=== PATIENT | female | born 1945 | race Caucasian/White ===

== ENCOUNTER 2018-09-21 00:05 | Inpatient (IN) ==
[2018-09-21] MEDS ORDERED: DUONEB (A & A) INH ONE (00:59)
[2018-09-21] MEDS ORDERED: NITROGLYCERIN TOP ONE (01:53)
[2018-09-21 01:59] LABS: BASO# 0.03 X1000 (0.0-0.2); BASO% 0.3 % (0.0-0.8); EOS# 0.04 X1000 (0.0-0.7); EOS% 0.4 % (0.0-10.0); HEMATOCRIT 28.8 % (37.0-47.0); HEMOGLOBIN 8.8 g/dL (12.0-16.0); LYMPH# 1.59 X1000 (1.2-3.4); MCH 30.2 PG (27-31); MCHC 30.6 g/dL (33-37); MONO# 1.24 X1000 (0.11-0.59); MONO% 13.3 % (1.7-9.3); MPV 9.9 FL (7.4-10.4); NEUT# 6.45 X1000 (1.4-6.5); PLT 174 X1000 (130-400); RBC 2.91 XMIL (4.2-5.4); RDW 14.4 % (11.5-14.5); WBC 9.35 X1000 (4.8-10.8)
[2018-09-21 02:02] LABS: ALB/GLOB RATIO 1.1; ALBUMIN 3.3 g/dL (3.5-5.0); CREATININE 1.4 mg/dL (0.5-0.9); POTASSIUM 3.3 mmol/L (3.5-5.1); TOTAL BILIRUBIN 0.33 mg/dL (0.20-1.00); TOTAL PROTEIN 6.3 g/dL (6.3-8.3)
[2018-09-21] MEDS ORDERED: LASIX IV ONE (02:59)
[2018-09-21] MEDS ORDERED: KLOR-CON PO ONE (03:56)
[2018-09-21 04:08] LABS: ALLEN TEST YES; BE 11.2 mmoll (-3.0-3.0); BLOOD TYPE ARTERIAL; HCO3-(ACT) 33.7 mmoll (20.0-26.0); MODALITY CANNULA; O2HB 96.1 % (95.0-99.0); PCO2(98.6) 47 mmHg (35-45); PO2(98.6) 91 mmHg (60-100); SAMPLE BLOOD; SAO2 98.8 % (95.0-100.0); THB 9.5 g/dL (11.5-17.4); pH(98.6) 7.49 (7.35-7.45)
--- NOTE | 2018-09-21 05:20 | Diag Imaging Result Doc PS360 ---
EXAM: CHEST-2 VIEWS HISTORY: cough TECHNIQUE: Chest three views COMPARISON: 06/08/2018 FINDINGS: The lungs are well expanded. The heart is enlarged. There is central vascular distention. No pleural effusions. There is a granuloma in the right base. IMPRESSION: Mild cardiomegaly with pulmonary edema. Electronically signed by Pérez Bunch 09/21/2018 5:18 AM
--- NOTE | 2018-09-21 06:53 | HISTORY AND PHYSICAL ---
Patient of [facility] under the care of Dr. Franki Motley. REASON FOR ADMISSION: Two to three day history of shortness of breath. Ms. Kaci Bustillos is a 73-year-old woman with a history of COPD, carotid disease, diastolic heart failure, hypothyroidism, hyperlipidemia, hypertensive heart disease, iron deficiency anemia, prior atrial fibrillation and coronary artery disease. She is also morbidly obese and bedbound. She reports that over the last 3 days, she has noticed that she has been more short of breath even when she makes little movements in her bed. She also complains of orthopnea but no PND. She denies any cough, fever or chills. She reports that the last 1 week, she has had progressive worsening of swelling of her left lower extremity and abdomen. She says that she has had intermittent chest pain of the same duration lasting 2 minutes, emanating from the substernal area into her precordial area. No specific aggravating or alleviating factors. No associated anginal equivalents with this chest pain. REVIEW OF SYSTEMS: Twelve system review was done. No GI or complaints. No polyuria or polydipsia. No focal neurological complaints. Positive findings per HPI. ALLERGIES: Penicillin. HOME MEDICATIONS: Have not been reconciled although she does state she takes Lasix. FAMILY HISTORY: Notable for heart disease, diabetes and stroke. SOCIAL HISTORY: She lives at [facility]. Does not smoke, drink or use illicit drugs. SURGICAL HISTORY: She has right AKA and subsequent I and D, right knee arthroplasty, ORIF of the patella on the right x2, carpal tunnel release, hysterectomy. LAB WORK: EKG showed atrial fibrillation with possible left bundle branch block. No other gross ST- T changes or findings to suggest ischemia. BUN is 18, creatinine 1.4, potassium 3.3. White count 9,000, H and H 8.8 and 28. Platelet count 174,000. Glucose 114. Lactate normal. Troponin 0.031. ProBNP . Chest x-ray film not up for review. PHYSICAL EXAMINATION: GENERAL: Morbidly obese woman who is a little sleepy but easily arousable. Oriented to person, place and time. VITAL SIGNS: Blood pressure 152/60, heart rate 80, respirations 18, temperature is 99.4 degrees. She is 99% on 2 L nasal cannula. HEENT: Head is normocephalic atraumatic. Eyes: PERRL, EOMI. She is anicteric and pale. ENT and oropharyngeal exam is grossly normal. NECK: Supple. No JVD or carotid bruit appreciated. Neck is short and thick. CHEST: A few crepitations surprisingly in the upper lobes with subsequent decreased air entry in the lower lobes. CARDIOVASCULAR: First and second heart sounds are heard. No gallops, murmurs or rubs appreciated. Rhythm is irregular. ABDOMEN: Protuberant, soft and mild epigastric and right upper quadrant tenderness with no peritoneal signs. Bowel sounds could not be appreciated. No mass or megaly could be appreciated. RECTAL: Deferred. EXTREMITIES: The patient has a right AKA stump. There is no overt breakdown. Left lower extremity showing areas of 2+ pitting edema with some degree of xerosis of the left leg. Some lichenification of the skin. Pulses distally have good volume except I could not appreciate very significant pulse on the right radial pulse. NEUROLOGICAL: No gross focal neurological deficits appreciated. SKIN: Aforementioned caked and xerotic skin of the left lower extremity mentioned above. MUSCULAR: Other than AKA no other findings. ASSESSMENT: 1. Acute diastolic heart failure. 2. Hypertensive heart disease. 3. Coronary artery disease. 4. Atrial fibrillation. 5. Morbid obesity. 6. Chronic respiratory failure on home O2. 7. Hypothyroidism. 8. Iron deficiency anemia. 9. Hypothyroidism. PLAN: Patient will be admitted for aggressive diuresis. I will anticipate that when the patient is discharged, her diuretic regimen will need to be adjusted. Check BMP and monitor renal function. Replete potassium and other electrolytes as deemed necessary. Patient's last echocardiogram was very difficult to obtain. Maybe we will get neeraj this time to evaluate the patient's EF. Alternatively, a MUGA scan may be needed in this patient if all else fails. Anemia workup was ordered. The patient does have evidence of iron deficiency. She may benefit from intravenous iron which may improve her overall mortality and morbidity. Other supportive measures like nebulizer treatments will be administered. Serial enzymes will be done in view of her history of coronary artery disease and topical nitroglycerin will be applied to decrease venous return and also help with potential chest pain. Please follow chest film report and another has been ordered for tomorrow. cc: Agatha Baptiste MD [facility]
--- NOTE | 2018-09-21 07:16 | EKG Report ---
Test Performed on : 09/21/2018 03:11:35 AM Test Reason : SOB Blood Pressure : / mmHG Vent. Rate : 062 BPM Atrial Rate : 056 BPM P-R Int : 000 ms QRS Dur : 154 ms QT Int : 396 ms P-R-T Axes : 000 -18 044 degrees QTc Int : 401 ms Atrial fibrillation. Left bundle branch block Abnormal ECG When compared with ECG of 08-JUN-2018 10:19, QT has shortened Unconfirmed Result
[2018-09-21] MEDS: DUONEB (A & A) INH SCH ×4 (09:15→22:00)
[2018-09-21] MEDS: NITROGLYCERIN TOP SCH ×3 (10:06→23:22)
[2018-09-21] MEDS: LASIX 100 MG in NS 90 ML IV SCH (10:10)
[2018-09-21] MEDS: SYNTHROID PO SCH ×2 (12:52→12:53)
[2018-09-21] MEDS: TYLENOL PO PRN ×2 (12:52→19:11)
[2018-09-21] MEDS: LOPRESSOR PO SCH ×2 (12:53→21:13)
[2018-09-21] MEDS: PLAVIX PO SCH (12:53)
[2018-09-21] MEDS: NORVASC PO SCH (12:53)
[2018-09-21] MEDS: RANEXA PO SCH ×2 (12:55→21:13)
[2018-09-21] MEDS: LAC-HYDRIN 12% LOTION TOP SCH ×2 (13:54→21:24)
--- NOTE | 2018-09-21 13:58 | CONSULTATION ---
DATE OF CONSULTATION: 09/21/2018 IMPRESSION: 1. Acute on chronic congestive heart failure. Probably multifactorial. 2. Recurrent chest discomfort. Probably stable angina. 3. Known atherosclerotic coronary disease with previous coronary angioplasty/ stent, for management of multivessel coronary atherosclerosis. Patient not felt to be a surgical candidate for bypass. 4. Atrial fibrillation 5. Morbid obesity. 6. Status post right nkqlf-pjq-zlsk amputation. 7. Hypertension. 8. Hyperlipidemia. 9. Chronic renal insufficiency. 10. Possible obstructive sleep apnea. RECOMMENDATIONS: 1. Diurese as you are doing. 2. Echocardiography. 3. Maximize medical therapy for atherosclerotic coronary disease/angina. 4. Conservative cardiovascular management overall. HISTORY: This 73-year-old white female with past history of atherosclerotic coronary disease, previous multivessel coronary angioplasty/stenting for management of multivessel coronary disease in setting where patient not felt to be a surgical candidate, previous right qmcxo-ove-khsx amputation, hypertension, hyperlipidemia, morbid obesity, and congestive heart failure, was admitted on transfer from [facility] for further management of dyspnea symptoms with progressive edema. She has had some chest discomfort as well. She relates chronic recurrent chest discomfort perhaps twice a day. Discomfort is described as being central in the chest and dull in character. Discomfort is nonexertional and may last several minutes before resolving spontaneously. She does note some occasional relief with nitroglycerin sublingually. She has had progressive swelling and more recently a tendency for increased shortness of breath. The pattern of chest discomfort has not really changed that much. PAST MEDICAL HISTORY: 1. Atherosclerotic coronary disease with multivessel coronary angioplasty/ stenting for management of multivessel coronary disease in patient not felt to amenable to surgical revascularization because of morbid obesity and immobility. 2. Morbid obesity. 3. Atrial fibrillation 4. Hypertension. 5. Hyperlipidemia. 6. Chronic renal insufficiency. 7. Gastroesophageal reflux disease. 8. Hypothyroidism. 9. Tendency for congestive heart failure. PAST SURGICAL HISTORY: Includes previous angioplasty/stenting of left main coronary, left anterior descending coronary, and left circumflex coronary with drug-eluting stents in 2014 performed at [place]. She is status post hysterectomy, unspecified stomach surgery, carpal tunnel release, right fteya-ini-kfkx amputation, and cataract extraction. ALLERGIES: She is allergic or intolerant to penicillin. MEDICATIONS PRIOR TO ADMISSION: As listed. SOCIAL HISTORY: She is disabled and resides in [facility]. She is bedridden. She does not smoke or use alcohol. FAMILY HISTORY: Positive for coronary disease. REVIEW OF SYSTEMS: Pulmonary: Noteworthy for increased dyspnea. There has been very little cough. Gastrointestinal: Noncontributory. Constitutional: Noncontributory. Remainder of review of systems negative/noncontributory, 14 total systems reviewed. PHYSICAL EXAMINATION: General: This is a morbidly obese, older white female in no distress. Vital signs: Blood pressure 140/102, heart rate 112, weight 342 pounds. HEENT : Extraocular movements intact. Mucous membranes moist. Neck: Supple. Jugular venous distention is difficult to appreciate. Chest: Clear to auscultation bilaterally. Cardiac: A regular rate and rhythm without appreciable murmur or gallop. Abdomen: Soft. Bowel sounds audible. Extremities: Demonstrate 2+ pitting edema with chronic venous stasis changes. Neurologic: Alert and fully oriented. Speech is fluent. She moves all 4 extremities equally well. DIAGNOSTIC DATA: Twelve-lead EKG demonstrates atrial fibrillation and left bundle branch block. LABORATORY DATA: Includes a sodium 142, potassium 3.3, chloride 99, carbon dioxide 31, BUN 18, creatinine 1.4, glucose 110. White blood cell count 9.35, hematocrit 38.8, hemoglobin 8.8, platelet count 174,000. Initial troponin T 0.031, followup troponin to 0.042. Pro B-natriuretic peptide level 3210. cc: Romain Canas MD [facility]
[2018-09-21] MEDS: ZOFRAN IV PRN (14:18)
--- NOTE | 2018-09-21 15:25 | PROGRESS NOTE ---
DATE: 09/21/2018 INTERVAL HISTORY: Ms. Bustillos was admitted overnight with chief complaints of shortness of breath and orthopnea of three days duration with seven days duration of bilateral lower extremity swelling. She does have past medical history of heart failure with preserved ejection fraction and chronic obstructive pulmonary disease with chronic hypoxic respiratory failure. Overnight she was started on intravenous Lasix drip for heart failure with preserved ejection fraction exacerbation, and Cardiology was also consulted. Currently, patient denies any chest pain, although he was complaining of intermittent central chest pain on presentation. She is feeling a little short of breath because she thinks the bed is not appropriate for her. She also complains of intermittent palpitation, which has been ongoing since last 7 days with increasing frequency. VITAL SIGNS: Temperature 99.3 degrees, pulse 80, respiratory rate of 16, blood pressure 125/79, saturating 98% on 3 L nasal cannula. PHYSICAL EXAMINATION: General: The patient appears morbidly obese, not in any acute distress. Examination is restricted considering the patient's body habitus, inability to get up from the bed, as well as inability to turn and thick chest wall. Respiratory: Her air entry appears adequate bilateral supramammary region. I could not appreciate good breath sounds bilateral inframammary region. They do appear to be without any wheezes or crackles. Cardiovascular: S1, S2 normal. Irregularly irregular. No murmur, rub, or gallop. Abdomen: Obese , soft, nontender. I could not appreciate any bowel sounds. It was difficult to appreciate jugular venous distention. However, there was no marked elevation that I could see. Extremities: Left lower extremity has chronic appearing lymphedema affecting the entire left lower extremity. On the right side, she has below-knee amputation. She also has a urine catheter. LABS: Suggestive of normocytic anemia which appears chronic, hypokalemia, chronic kidney disease stage III. Her digoxin level was not elevated. ASSESSMENT AND PLAN: 1. Acute exacerbation of heart failure with preserved ejection fraction. According to echocardiogram in 2018, it was of poor quality and extremely limited. I will appreciate Cardiology recommendation if she would need a MUGA scan. Previously she does have history of coronary artery disease status post stent. However, she was deemed a poor candidate for coronary artery bypass graft. Continue intravenous Lasix drip. 2. Atrial fibrillation with rapid ventricular rate. I will continue patient on metoprolol and Xarelto, which are her home medications. I will appreciate Cardiology recommendation if she would in future need diltiazem and digoxin which are listed to be in her medication list. However, the proper medication reconciliation is pending. 3. Coronary artery disease. Continue home clopidogrel, continue atorvastatin for hyperlipidemia. 4. Chronic kidney disease stage III, aware. 5. Chronic hypoxic respiratory failure on home oxygen, aware. Currently oxygen requirement is baseline. 6. Hypothyroidism. Follow up with thyroid stimulating hormone since the patient has been complaining of intermittent palpitation recently to make sure she is not hyper thyrotoxic. 7. Acute encephalopathy: Patient currently appears alert and oriented x 3. However, I was informed by her son on the phone that she has been acting confused since last at least 2 days. He told me that this often happens in the setting of UTI for her. Currently, she denies any urinary symptoms though. I will get urine studies and depending on her clinical course, I would consider adding antibiotics. She has been listed to be on several psychotropic medicines which could also contribute to drowsiness, confusion. DISPOSITION: The patient remains inside [facility]. Plan of care was discussed with her. All of her questions have been answered satisfactorily. I called patient's son who is a surrogate decision maker. I extensively discussed with him about patient's clinical condition and answered all of his questions. cc: Elijah Machuca MD [facility]
[2018-09-21 16:34] LABS: URINE SOURCE CATH
[2018-09-21 16:42] LABS: BILIRUBIN URINE NEGATIVE (NEGATIVE); BLOOD URINE MODERATE (NEGATIVE); COLOR YELLOW; GLUCOSE URINE NEGATIVE (NEGATIVE); KETONE URINE NEGATIVE (NEGATIVE); LEUKOCYTES URINE LARGE (NEGATIVE); NITRITE URINE POSITIVE (NEGATIVE); PH URINE 5.5; PROTEIN URINE 30 mg/dL (NEGATIVE); SP GRAVITY URINE 1.001; TURBIDITY URINE HAZY (CLEAR); UROBILINOGEN URINE NORMAL (NORMAL)
[2018-09-21 16:52] LABS: UR EPITHELIAL CELLS <10 /HPF (<10); URINE BACTERIA 4+ /HPF; URINE WBC TNTC /HPF (<10)
[2018-09-21] MEDS ORDERED: XARELTO PO SCH (17:00)
[2018-09-21 17:11] LABS: URINE CASTS NONE SEEN; URINE CRYSTALS NONE SEEN; URINE SMALL ROUND CELLS NONE SEEN; URINE YEAST NONE SEEN
[2018-09-21] MEDS: LIPITOR PO SCH (21:13)
[2018-09-21] MEDS: MIRALAX PO SCH (21:13)
[2018-09-21] MEDS ORDERED: DULCOLAX PR PRN (21:25)
[2018-09-21] MEDS ORDERED: PERCOCET-5 PO ONE (23:05)
[2018-09-22] MEDS: TYLENOL PO PRN (02:45)
[2018-09-22] MEDS: LASIX 100 MG in NS 90 ML IV SCH (03:47)
[2018-09-22] MEDS: DUONEB (A & A) INH SCH ×4 (03:50→21:41)
[2018-09-22 05:53] LABS: RETIC% 1.94 % (0.8-2.1); RETIC-HE 25.7 PG (28.2-36.6)
[2018-09-22 05:55] LABS: BASO# 0.03 X1000 (0.0-0.2); BASO% 0.3 % (0.0-0.8); EOS# 0.06 X1000 (0.0-0.7); EOS% 0.5 % (0.0-10.0); HEMATOCRIT 29.6 % (37.0-47.0); IMM GRAN# 0.03 X1000 (0.0-0.04); IMM GRAN% 0.3 % (0.0-0.5); LYMPH# 1.42 X1000 (1.2-3.4); MCH 30.3 PG (27-31); MCHC 30.4 g/dL (33-37); MCV 99.7 FL (81-99); MONO# 1.42 X1000 (0.11-0.59); MPV 10.2 FL (7.4-10.4); NEUT# 8.92 X1000 (1.4-6.5); NEUT% 74.9 % (42.2-75.2); PLT 183 X1000 (130-400); RBC 2.97 XMIL (4.2-5.4); RDW 14.4 % (11.5-14.5); WBC 11.88 X1000 (4.8-10.8)
[2018-09-22 06:05] LABS: CREATININE 1.5 mg/dL (0.5-0.9); MAGNESIUM 1.7 mg/dL (1.5-2.7); POTASSIUM 3.2 mmol/L (3.5-5.1)
[2018-09-22 06:28] LABS: FERRITIN 217 ng/mL (13-150)
--- NOTE | 2018-09-22 06:32 | ECHO REPORT ---
ORDER DATE: 09/21/2018 INTERPRETING PHYSICIAN: Dr. Mark CLINICAL INDICATIONS: 73-year-old female with diastolic heart failure, atrial fibrillation, morbidly obese, weighs 342 pounds. M-MODE MEASUREMENTS: Left ventricle end diastole: 4.3 cm. Left ventricle end systole: 3.2 cm. Posterior wall: 1.2 cm. Interventricular septum: 1.2 cm. Left atrium: 4.3 cm. Aortic root: 2.1 cm. SUMMARY OF 2-DIMENSIONAL IMAGING: This study is very limited. The left ventricular function may be normal; however, I cannot tell for sure if there is any wall motion abnormality. The aortic valve is probably grossly normal. The mitral valve also shows no significant evidence of a stenosis; however, there is calcification of the annulus. Color flow mapping is very hard to evaluate. There is no pericardial effusion. The right ventricle appears to be grossly within normal range. The left atrium may be mildly enlarged. Pulmonic valve is also grossly unremarkable. SUMMARY: This study is very limited. Please think of alternative imaging modalities if there is a great concern about the presence of cardiac pathology. cc: MD Agatha Champion MD [facility]
[2018-09-22] MEDS: PROTONIX PO SCH (07:00)
[2018-09-22] MEDS: SYNTHROID PO SCH ×2 (07:00)
[2018-09-22] MEDS ORDERED: KLOR-CON PO ONE (07:37)
[2018-09-22] MEDS ORDERED: LEVAQUIN 500 MG/D5W 500 MG/100 ML IVPB IV SCH (07:45)
--- NOTE | 2018-09-22 07:54 | Diag Imaging Result Doc PS360 ---
EXAM: CHEST-PORTABLE 09/22/2018 HISTORY: HF TECHNIQUE: AP portable at 0607 COMMENT: There is cardiomegaly and increased pulmonary vascularity. There is increased interstitial markings. This appears slightly worse than on 09/21/2018. IMPRESSION: Worsened pulmonary edema. Electronically signed by Shayne Wilcox 09/22/2018 7:52 AM
[2018-09-22] MEDS: RANEXA PO SCH ×2 (09:37→21:23)
[2018-09-22] MEDS: WELLBUTRIN SR PO SCH ×2 (09:37→21:23)
[2018-09-22] MEDS: MIRALAX PO SCH ×2 (09:37→21:15)
[2018-09-22] MEDS: ALDACTONE PO SCH (09:37)
[2018-09-22] MEDS: LAC-HYDRIN 12% LOTION TOP SCH ×2 (09:38→21:14)
[2018-09-22] MEDS: PLAVIX PO SCH (09:38)
[2018-09-22] MEDS: NORVASC PO SCH (09:38)
[2018-09-22] MEDS: LOPRESSOR PO SCH (09:38)
[2018-09-22] MEDS ORDERED: APRESOLINE IV PRN (10:39)
[2018-09-22] MEDS ORDERED: CARDIZEM CD PO SCH ×2 (10:45→11:45)
[2018-09-22] MEDS: LASIX IV SCH ×2 (10:52→23:00)
--- NOTE | 2018-09-22 11:47 | PROGRESS NOTE ---
DATE: 09/22/2018 SUBJECTIVE: The patient is still complaining of shortness of breath. I will stop the furosemide drip, and I will put her on twice a day Lasix 80 mg IV. Blood pressure has been elevated, and Cardiology Department is following this patient closely, so I will add hydralazine p.r.n. to her medications. I noted that this patient has been on isosorbide mononitrate ER and diltiazem at home and also digoxin. We will ask Cardiology Department to see if we can continue with this treatment. PHYSICAL EXAMINATION: Vital Signs: Temperature 99.8 degrees, pulse 90, respiratory rate 20, blood pressure 196/81, oxygen saturation 93 on 3 L of nasal cannula. HEENT: Head normocephalic. No trauma. PERRLA. Neck: Supple. I cannot see JVD because of her neck size. Central trachea. Chest: Decreased breath sounds globally with some crackles at the bases. Abdomen: Soft, nontender, nondistended, obese. Positive bowel sounds. Extremities: Left lower extremity edema. Right kszok-cjy-ncmt amputation. Cardiovascular: Irregularly irregular rate and rhythm. Neurological: The patient is alert and oriented x3. No focal deficits. LABORATORY DATA: WBC 11.8, hemoglobin 9, hematocrit 29.6, platelets 193. Sodium 140, potassium 3.2, chloride 95, bicarbonate 33, BUN 18, creatinine 1.5, glucose 131, calcium 9. IMAGING: Chest x-ray showed worsened pulmonary edema. ASSESSMENT AND PLAN: 1. Acute on chronic congestive heart failure exacerbation, likely diastolic. Left ventricular systolic function seems to be adequate. I have stopped the intravenous drip of Lasix, and I will put this patient on intravenous push of Lasix 80 mg twice a day. I will wait for more Cardiology recommendations. 2. Atrial fibrillation with rapid ventricular response. She has been placed on metoprolol and Xarelto. It looks like she has been on diltiazem, digoxin, and Imdur as well. I will wait for more recommendations. 3. History of coronary artery disease. Continue with clopidogrel. Continue with atorvastatin for hyperlipidemia. 4. Chronic kidney disease stage 3, aware. 5. Chronic hypoxic respiratory failure, on home oxygen, aware, currently oxygen requirement is baseline. 6. Hypothyroidism. Continue with the same management. 7. Acute encephalopathy. She seems to be better. She is oriented x3. cc: José Miguel Adorno MD
[2018-09-22] MEDS: IMDUR PO SCH (12:05)
--- NOTE | 2018-09-22 17:31 | CARDIOLOGY PROGRESS NOTE ---
DATE: 09/22/2018 SUBJECTIVE: The patient complains of headache and posterior neck discomfort. She denies shortness of breath or chest pain. OBJECTIVE: Blood pressure 159/73, heart rate 90, oxygen saturation 97% on nasal cannula oxygen. Jugular venous distention cannot be appreciated. Chest is clear to auscultation anteriorly. Cardiac exam reveals a regular rate and rhythm without appreciable murmur or gallop. Extremities demonstrate 2+ to 3+ edema with stasis changes in the distal left lower extremity. She is status post right klvmh-mtd-kidu amputation. LABORATORY DATA: Includes white blood cell count 11.88, hematocrit 29.6, hemoglobin 9.0, platelet count 183,000. Sodium 140, potassium 3.2, chloride 95, carbon dioxide 33, BUN 18, creatinine 1.5, glucose 131. IMPRESSION: 1. Zjwpq-xb-guliouh congestive heart failure, probably multifactorial. 2. Recurrent chest discomfort. Stable angina. 3. Atherosclerotic coronary disease, with previous coronary angioplasty/stent for management of multivessel coronary atherosclerosis. Patient not felt to be a surgical candidate for bypass. 4. Atrial fibrillation. 5. Morbid obesity. 6. Status post right snswo-ucz-gfrw amputation. 7. Hypertension. 8. Hyperlipidemia. 9. Chronic kidney disease. 10. Suspect obstructive sleep apnea. RECOMMENDATIONS: 1. Continue diuresis with IV Lasix q.12. 2. Switch from metoprolol to carvedilol. 3. Diltiazem discontinued. Continue amlodipine. 4. Conservative cardiovascular management overall. 5. If BP elevates,would progressively increase carvedilol. cc: Romain Canas MD
[2018-09-22] MEDS: MORPHINE IV PRN ×3 (17:33→23:37)
[2018-09-22] MEDS: ELIQUIS PO SCH (17:34)
[2018-09-22] MEDS: LIPITOR PO SCH (21:23)
[2018-09-22] MEDS: COREG PO SCH (21:23)
[2018-09-23] MEDS: MORPHINE IV PRN ×4 (02:36→23:32)
[2018-09-23] MEDS: DUONEB (A & A) INH SCH ×4 (03:43→21:50)
[2018-09-23] MEDS: PROTONIX PO SCH ×2 (05:02→06:02)
[2018-09-23] MEDS: SYNTHROID PO SCH ×4 (05:03→06:02)
[2018-09-23] MEDS ORDERED: LEVAQUIN 500 MG/D5W 500 MG/100 ML IVPB IV SCH (06:00)
[2018-09-23 08:58] LABS: CREATININE 1.4 mg/dL (0.5-0.9)
[2018-09-23] MEDS: LACTULOSE PO SCH ×2 (09:08→09:22)
[2018-09-23] MEDS: WELLBUTRIN SR PO SCH ×2 (09:08→21:26)
[2018-09-23] MEDS: NORVASC PO SCH (09:08)
[2018-09-23] MEDS: IMDUR PO SCH (09:08)
[2018-09-23] MEDS: RANEXA PO SCH ×2 (09:08→21:27)
[2018-09-23] MEDS: COREG PO SCH ×2 (09:08→21:26)
[2018-09-23] MEDS: PLAVIX PO SCH (09:08)
[2018-09-23] MEDS: ALDACTONE PO SCH (09:08)
[2018-09-23] MEDS: ELIQUIS PO SCH ×2 (09:08→21:26)
[2018-09-23] MEDS: MIRALAX PO SCH ×2 (09:09→21:27)
[2018-09-23] MEDS: LEVAQUIN 500 MG/D5W 500 MG/100 ML IVPB IV SCH (09:09)
[2018-09-23] MEDS: LASIX IV SCH ×2 (09:11→21:27)
[2018-09-23] MEDS: LAC-HYDRIN 12% LOTION TOP SCH ×3 (09:12→22:13)
--- NOTE | 2018-09-23 11:14 | PROGRESS NOTE ---
DATE: 09/23/2018 SUBJECTIVE: This patient is feeling better. Yesterday she was complaining of a lot of shortness of breath, but today is much better. I will continue with the same management. Cardiology Department on board. No acute events overnight. OBJECTIVE: Vital Signs: Temperature 98.5 degrees, pulse 70, respiratory rate 15, blood pressure 138/60, oxygen saturation 97% on 3 L of nasal cannula. HEENT: Head normocephalic. No trauma. PERRLA. Neck: Supple. I cannot see JVD because of her neck size. Central trachea. Chest: Decreased breath sounds globally with some rales at the bases, some crepitus. Abdomen: Soft, nontender, nondistended. Obese. Positive bowel sounds. Extremities: Left lower extremity edema. Right above the knee amputation. Cardiovascular: Irregularly, irregular rate and rhythm. Neurological examination: The patient is alert and oriented x3. No focal deficits. LABORATORY: Pending BMP today. ASSESSMENT AND PLAN: 1. Acute on chronic diastolic congestive heart failure. Left ventricular systolic function seems to be adequate. I have stopped yesterday the intravenous drip of Lasix, and I put this patient on intravenous Lasix twice a day 80 mg. It looks like it is working better. Pending basic metabolic panel to check the kidney function. 2. Atrial fibrillation with rapid ventricular response, rate controlled. Continue with the management suggested by Cardiology Department. It seems to be working fine. 3. History of coronary artery disease. Continue with the same treatment, clopidogrel, atorvastatin for hyperlipidemia. 4. Chronic kidney disease stage III. Aware. Pending basic metabolic panel. 5. Chronic hypoxic respiratory failure on home oxygen, aware. Continue with oxygen supplementation, currently oxygen requirement is baseline. 6. Hypothyroidism. Continue with same management. 7. Acute encephalopathy, resolved. cc: José Miguel Adorno MD
--- NOTE | 2018-09-23 12:55 | ECHO REPORT ---
ORDER DATE: 09/22/2018 INDICATION: Assess left ventricular function. FINDINGS: This is an extremely difficult study. The patient is 5 foot 5 and weighs 342 pounds. Definity echo contrast was used to help better visualize the left ventricular cavity. This study is still extremely difficult. I would recommend an alternative modality to further assess the LV function. Could consider a gated heart scan. This is an extremely difficult off-axis and poor image quality study secondary to the patient's body habitus. cc: MD Romain Valle MD
[2018-09-23] MEDS: TYLENOL PO PRN (17:25)
--- NOTE | 2018-09-23 20:29 | PROGRESS NOTE ---
DATE: 09/23/2018 SUBJECTIVE: The patient continues without chest discomfort or shortness of breath. She reports feeling better. She continues on nasal cannula oxygen. OBJECTIVE: Blood pressure 150/57, heart rate 78, oxygen saturation 95% on nasal cannula oxygen.Neck: Jugular venous distention cannot be appreciated. Chest: Clear to auscultation anteriorly. Cardiac Exam: Reveals an irregular rate and rhythm without appreciable murmur or gallop. Extremities: Demonstrate 2+ to 3+ edema with stasis changes in the distal left lower extremity. LABORATORY DATA: Includes a sodium 140, potassium 3.0, chloride 93, BUN 21, creatinine 1.4, carbon dioxide 33, glucose 98. IMPRESSION: 1. Acute on chronic congestive heart failure probably multifactorial. 2. Atherosclerotic coronary disease. Patient continues with stable angina. 3. Atrial fibrillation. 4. Morbid obesity. 5. Status post right ffaoh-jmd-wguw amputation. 6. Hypertension. 7. Hyperlipidemia. 8. Chronic kidney disease. 9. Suspect obstructive sleep apnea. RECOMMENDATIONS: 1. Continue diuresis with IV Lasix. 2. Increase carvedilol as needed for improved blood pressure control. 3. Conservative cardiovascular management overall. cc: Romain Canas MD
[2018-09-23] MEDS: LIPITOR PO SCH (21:26)
[2018-09-23] MEDS: ZOFRAN IV PRN (23:56)
[2018-09-24] MEDS: DUONEB (A & A) INH SCH ×4 (03:10→21:30)
[2018-09-24 05:26] LABS: BASO# 0.03 X1000 (0.0-0.2); BASO% 0.3 % (0.0-0.8); EOS# 0.19 X1000 (0.0-0.7); HEMATOCRIT 27.9 % (37.0-47.0); HEMOGLOBIN 8.6 g/dL (12.0-16.0); IMM GRAN# 0.04 X1000 (0.0-0.04); IMM GRAN% 0.4 % (0.0-0.5); LYMPH# 1.09 X1000 (1.2-3.4); LYMPH% 11.5 % (20.5-51.1); MCH 30.2 PG (27-31); MCHC 30.8 g/dL (33-37); MCV 97.9 FL (81-99); MONO# 0.94 X1000 (0.11-0.59); MONO% 9.9 % (1.7-9.3); NEUT# 7.17 X1000 (1.4-6.5); NEUT% 75.9 % (42.2-75.2); PLT 194 X1000 (130-400); RBC 2.85 XMIL (4.2-5.4); WBC 9.46 X1000 (4.8-10.8)
[2018-09-24 05:42] LABS: CALCIUM 8.7 mg/dL (8.8-10.2); CREATININE 1.4 mg/dL (0.5-0.9); POTASSIUM 3.1 mmol/L (3.5-5.1)
[2018-09-24] MEDS: PROTONIX PO SCH (06:06)
[2018-09-24] MEDS: SYNTHROID PO SCH ×2 (06:06)
[2018-09-24] MEDS: MORPHINE IV PRN ×3 (06:25→20:10)
--- NOTE | 2018-09-24 07:54 | Diag Imaging Result Doc PS360 ---
EXAM: CHEST-PORTABLE INDICATION: dyspnea TECHNIQUE: One view COMPARISON: 09/22/2018 FINDINGS: Inspiration is suboptimal. Pulmonary venous congestion and interstitial edema is approximately stable given differences in inspiration. No new consolidation is identified. Cardiac silhouette is stable. IMPRESSION: Essentially stable chest. Electronically signed by Vinicius Silva 09/24/2018 7:52 AM
[2018-09-24] MEDS: RANEXA PO SCH ×2 (08:10→20:03)
[2018-09-24] MEDS: PLAVIX PO SCH (08:10)
[2018-09-24] MEDS: ALDACTONE PO SCH (08:10)
[2018-09-24] MEDS: IMDUR PO SCH (08:11)
[2018-09-24] MEDS: NORVASC PO SCH (08:11)
[2018-09-24] MEDS: COREG PO SCH ×2 (08:11→20:03)
[2018-09-24] MEDS: WELLBUTRIN SR PO SCH ×2 (08:11→20:10)
[2018-09-24] MEDS: LEVAQUIN 500 MG/D5W 500 MG/100 ML IVPB IV SCH (08:11)
[2018-09-24] MEDS: LASIX IV SCH ×2 (08:11→20:04)
[2018-09-24] MEDS: ELIQUIS PO SCH ×2 (08:11→20:03)
[2018-09-24] MEDS: MIRALAX PO SCH ×3 (08:14→20:04)
[2018-09-24] MEDS: LAC-HYDRIN 12% LOTION TOP SCH ×2 (08:14→20:06)
[2018-09-24] MEDS: KLOR-CON PO SCH ×2 (08:42→20:04)
[2018-09-24] MEDS: ZOFRAN IV PRN ×3 (08:48→20:05)
[2018-09-24] MEDS ORDERED: LACTULOSE PO SCH (09:00)
[2018-09-24] MEDS ORDERED: DULCOLAX PR ONE (09:49)
--- NOTE | 2018-09-24 11:23 | PROGRESS NOTE ---
DATE: 09/24/2018 SUBJECTIVE: The patient is feeling a little bit better today. She is not complaining at this moment of shortness of breath. We will continue with same management. She has been diuresed. We have a negative balance of 1.8 L in the past 24 hours. We will continue with the same management. OBJECTIVE: Vital signs: Temperature is 98.2, pulse 66, respiratory rate 18, blood pressure 143/64, oxygen saturation 99% on 3 L of nasal cannula. HEENT: Head is normocephalic and atraumatic. PERRLA. Neck: Supple. I cannot see JVD because of her neck size. Central trachea. Chest: Decreased breath sounds globally with some rales at the bases, some crepitans as well. Abdomen is soft, nontender and nondistended. Obese. Positive bowel sounds. Extremities: Left lower extremity edema. Right sixqv-[id number]-snja amputation. Cardiovascular: Irregularly irregular rate and rhythm. Neurologic: The patient is alert and oriented x3. No focal deficits. DIAGNOSTIC DATA: WBC is 9.4, hemoglobin 8.6, hematocrit 27.9, platelets 194. Sodium is 139, potassium 3.1, chloride 92, bicarbonate 34, BUN is 22, creatinine 1.4, glucose 104, calcium 8.7. ASSESSMENT AND PLAN: 1. Acute on chronic diastolic congestive heart failure. Left ventricular systolic function seems to be adequate. I had stopped a couple of days ago the IV drip of Lasix, and I put this patient on Lasix IV twice a day 80 mg. It seems to be working fine. Kidney function has been stable. 2. Atrial fibrillation with rapid ventricular response, rate controlled. Continue with the same management. Cardiology Department onboard. 3. History of coronary artery disease. Continue with same treatment, clopidogrel, and atorvastatin for hyperlipidemia. 4. Chronic kidney disease stage 3, aware. Kidney function has been stable. We will monitor this closely. 5. Chronic hypoxic respiratory failure, on home oxygen. Aware. Continue with oxygen supplementation. Currently oxygen requirement is at baseline. 6. Hypothyroidism. Continue with same management. 7. Acute encephalopathy, resolved. cc: José Miguel Adorno MD
--- NOTE | 2018-09-24 13:27 | CARDIOLOGY PROGRESS NOTE ---
DATE: 09/24/2018 CHIEF COMPLAINT: Shortness of breath, swelling. SUBJECTIVE: Ms. Bustillos feels like she is nauseous. She really does not want to eat much today. She says that her swelling has decreased considerably. Overall she is feeling better. Her heart rate appears to be better controlled. She is in permanent atrial fibrillation. OBJECTIVE: Vital signs: Today, her blood pressure is 143/64, temperature 98.3, pulse 66, respirations 18. The patient is awake, sitting upright. HEENT is unremarkable. Chest sounds clear to auscultation and percussion. Heart sounds are slightly irregular. Abdomen is obese. Extremities show evidence of right above-knee amputation. Left leg is swollen, 2 to 3+ edema. Neurologic: Follows commands. Moves all 4 extremities. DIAGNOSTIC DATA: Blood work from today shows sodium 139, potassium 3.1, BUN is 22, creatinine 1.4. ProBNP has risen to 5882 picograms per mL. IMPRESSION: 1. The patient is with congestive heart failure that probably this is more a case of diastolic dysfunction. 2. Permanent atrial fibrillation. 3. Morbid obesity. 4. Status post right above-knee amputation. 5. Hypertension. 6. Chronic kidney disease. RECOMMENDATIONS: At this time, I would suggest to continue supportive care. The [facility] prognosis of this patient is really very poor. She is amputated, morbidly obese, and is a penitentiary resident. Her body mass index is 57. We will follow her as needed. cc: Papito Mark MD
[2018-09-24] MEDS: LIPITOR PO SCH (20:03)
[2018-09-25] MEDS: DUONEB (A & A) INH SCH ×4 (03:39→23:03)
[2018-09-25] MEDS: MORPHINE IV PRN ×3 (03:41→20:06)
[2018-09-25] MEDS: ZOFRAN IV PRN ×4 (03:41→20:35)
[2018-09-25 05:53] LABS: BASO# 0.03 X1000 (0.0-0.2); BASO% 0.3 % (0.0-0.8); EOS# 0.21 X1000 (0.0-0.7); EOS% 2.2 % (0.0-10.0); HEMOGLOBIN 8.8 g/dL (12.0-16.0); IMM GRAN# 0.05 X1000 (0.0-0.04); IMM GRAN% 0.5 % (0.0-0.5); LYMPH% 15.6 % (20.5-51.1); MCH 29.7 PG (27-31); MCHC 30.3 g/dL (33-37); MONO# 0.99 X1000 (0.11-0.59); MONO% 10.3 % (1.7-9.3); MPV 10.2 FL (7.4-10.4); NEUT# 6.86 X1000 (1.4-6.5); NEUT% 71.1 % (42.2-75.2); PLT 236 X1000 (130-400); RBC 2.96 XMIL (4.2-5.4); RDW 13.9 % (11.5-14.5); WBC 9.64 X1000 (4.8-10.8)
[2018-09-25 06:15] LABS: CALCIUM 9.4 mg/dL (8.8-10.2); CREATININE 1.4 mg/dL (0.5-0.9); POTASSIUM 3.3 mmol/L (3.5-5.1)
[2018-09-25] MEDS: PROTONIX PO SCH (06:29)
[2018-09-25] MEDS: SYNTHROID PO SCH ×2 (06:29)
[2018-09-25] MEDS: ELIQUIS PO SCH ×2 (08:38→20:34)
[2018-09-25] MEDS: NORVASC PO SCH (08:38)
[2018-09-25] MEDS: IMDUR PO SCH (08:38)
[2018-09-25] MEDS: WELLBUTRIN SR PO SCH ×2 (08:38→20:34)
[2018-09-25] MEDS: ALDACTONE PO SCH ×2 (08:38→20:34)
[2018-09-25] MEDS: PLAVIX PO SCH (08:38)
[2018-09-25] MEDS: MIRALAX PO SCH ×3 (08:39→20:38)
[2018-09-25] MEDS: LASIX IV SCH ×2 (08:39→20:34)
[2018-09-25] MEDS: LEVAQUIN 500 MG/D5W 500 MG/100 ML IVPB IV SCH (08:39)
[2018-09-25] MEDS: COREG PO SCH ×2 (08:40→20:34)
[2018-09-25] MEDS: RANEXA PO SCH ×2 (09:27→20:34)
[2018-09-25] MEDS: LAC-HYDRIN 12% LOTION TOP SCH (09:50)
--- NOTE | 2018-09-25 10:56 | CARDIOLOGY PROGRESS NOTE ---
DATE: 09/25/2018 CHIEF COMPLAINT: Shortness of breath, swelling. SUBJECTIVE: Ms. Bustillos is feeling better this morning. She is less stomach upset and less short of breath. She got some physical therapy, coming to do exercises at the bedside. Telemetry shows atrial fibrillation with controlled rate. OBJECTIVE: Vital signs: Blood pressure is 136/66, temperature 97.8, pulse 56, respirations 16. She is awake, alert and obese, in no distress. HEENT unremarkable. Chest sounds clear to auscultation and percussion. Heart sounds irregularly irregular. No gallop or murmur. Abdomen is quite obese. Extremities showed evidence of right above-knee amputation. Neurologic: Follows commands. Moves all 4 extremities. DIAGNOSTIC DATA: Blood work shows sodium is 143, potassium 3.3, BUN is 23, creatinine 1.4. Hemoglobin is 8.8, white cell count is 9640. IMPRESSION: 1. The patient has persistent permanent atrial fibrillation, rate controlled. 2. Congestive heart failure, mostly diastolic. 3. Status post right above-knee amputation. 4. Hypokalemia. This is persistent. 5. Chronic kidney disease. 6. Hypertension. RECOMMENDATIONS: I will increase her spironolactone to 25 mg twice a day and see how she does. She needs to be monitored periodically for potassium elevation. She may be coming closer to the point where she can go back to the [facility]. cc: Papito Mark MD
--- NOTE | 2018-09-25 15:56 | INFECTIOUS DISEASE CONSULT REP ---
DATE: 09/25/2018 CONCLUSION: The patient has a symptomatic E coli urinary tract infection. The patient did mention that it caused pain in both of her costovertebral angle areas. Thus, I think the patient has involvement of her kidneys. RECOMMENDATIONS: I have ordered aztreonam for the patient. She had shock when she took penicillin, however, she has had Keflex in the past and tolerated it well. Therefore, I think probably a cephalosporin antibiotic also could be given to the patient for her urinary tract infection but I am plan to use aztreonam instead. DISCUSSION: The patient initially came in the hospital because of cough and dyspnea. She also had dysuria and bilateral flank pain. Her urine culture grew E coli. The patient's CBC shows a white count of 9640, hemoglobin 8.8, and platelet count 236,000. Creatinine was 1.4. GFR is 37. Chest x-ray shows pulmonary venous congestion. INTERCHANGE AGENT HISTORY: She is a 4, para 3, AB1. She is had a hysterectomy. PREVIOUS HOSPITALIZATIONS AND OPERATIONS: She has had 3 labor and deliveries, a miscarriage, a hysterectomy, a thyroid surgery, carpal tunnel surgery, a right total knee arthroplasty infection which eventually resulted in the patient having a right ljzna-hld-aahn amputation. MEDICAL DISEASES: Positive for morbid obesity, diabetes mellitus, hypertension , cardiac arrhythmia, osteoarthritis, hyperlipidemia, hypothyroidism. INFECTIOUS DISEASE HISTORY: Positive for urinary tract infection and pneumonia. FAMILY HISTORY: Positive for diabetes mellitus, hypertension and cancer. SOCIAL HISTORY: The patient is a . She lives in a prison. ALLERGIES: As mentioned above, she is allergic to penicillin. She had shock but she tolerated Keflex well in the past. MEDICATIONS: Taken at the prison include Eliquis, Lipitor, Dulcolax, bupropion, citalopram, Plavix, Lanoxin, diltiazem, Lasix, gabapentin, Atarax, Isordil, Synthroid, Ativan, methocarbamol, oxycodone, pantoprazole, Mirapex and vitamins and minerals. PHYSICAL EXAMINATION: Vital Signs: Temperature is 97.8 degrees, pulse 66, respirations 16, blood pressure is 128/73. The patient weighs 342 pounds. She is 5 feet 5 inches tall. General: This is a morbidly obese, elderly female. She is in no acute distress today. Head, eyes, ears, nose, and throat: She can hear my spoken words and see near objects. She does not have any white patches on her tongue. Neck: No meningismus. Thorax: Increased AP diameter of the chest. Lungs: The patient had distant breath sounds. I did not hear any wheezes or rales. Cardiovascular: Heart rate is distant. It appeared to be a regular heart rate. Abdomen: Soft and not tender. Bones, joints, muscles: Patient has a right llvop-vyr-[id number] amputation. Neurologic: The patient is awake. She can move her arms and left leg but is very weak. The patient's memory as regarding her medical history was slightly decreased. Integument: Patient has brownish discoloration of the distal left leg. Thank you for the consult. cc: Wu Meyers MD MTDD
[2018-09-25] MEDS: LIPITOR PO SCH (20:34)
--- NOTE | 2018-09-25 23:00 | PROGRESS NOTE ---
DATE: 09/25/2018 SUBJECTIVE: Patient resting comfortable in bed. OBJECTIVE: Vital signs: Temperature 97.8 degrees, pulse 66, respiratory 16, blood pressure 122/73 . HEENT: She is atraumatic, normocephalic. Cardiovascular: S1, S2. Respiratory: Good entry bilaterally. ABDOMEN: Obese, nontender, no masses felt.Extremities: Trace edema in left lower extremity, patient does have right above-knee amputation. ASSESSMENT AND PLAN: Management of congestive heart failure [*] coronary artery disease will be per recommendation of the Cardiology team. We will continue to follow up on patient's renal function with regards to chronic kidney disease. Continue levothyroxine for hypothyroidism and also manage UTI with antibiotics. cc: Arjun Sage MD
[2018-09-26] MEDS: DUONEB (A & A) INH SCH ×4 (03:14→23:34)
[2018-09-26] MEDS: LAC-HYDRIN 12% LOTION TOP SCH ×3 (04:24→23:04)
[2018-09-26] MEDS: ZOFRAN IV PRN ×2 (04:32→23:03)
[2018-09-26] MEDS: MORPHINE IV PRN ×3 (04:32→23:03)
[2018-09-26] MEDS: SYNTHROID PO SCH ×2 (06:01→06:02)
[2018-09-26] MEDS: PROTONIX PO SCH (06:01)
[2018-09-26] MEDS: ALDACTONE PO SCH ×4 (09:35→20:50)
[2018-09-26] MEDS: ELIQUIS PO SCH ×2 (10:01→20:50)
[2018-09-26] MEDS: WELLBUTRIN SR PO SCH ×2 (10:01→20:50)
[2018-09-26] MEDS: COREG PO SCH ×2 (10:01→20:50)
[2018-09-26] MEDS: PLAVIX PO SCH (10:01)
[2018-09-26] MEDS: RANEXA PO SCH ×2 (10:01→20:51)
[2018-09-26] MEDS: NORVASC PO SCH (10:02)
[2018-09-26] MEDS: IMDUR PO SCH (10:02)
[2018-09-26] MEDS: MIRALAX PO SCH ×2 (10:02→20:51)
[2018-09-26] MEDS: LASIX IV SCH ×2 (10:54→20:50)
--- NOTE | 2018-09-26 15:30 | PROVIDER DOCUMENTATION ---
This chart was entered by Silvia Yan Scribe, acting as scribe for El Martino MD. HPI-Fever <Tom Anders - Last Filed: 09/21/18 03:29> - General Source: patient, EMS <El Martino - Last Filed: 09/26/18 15:30> - General Chief Complaint: Fever Stated Complaint: fever Time Seen by Provider: 09/21/18 00:22 Allergies/Adverse Reactions: Patient Allergies Allergy/AdvReac Type Severity Reaction Status Date / Time Penicillins Allergy Mild HIVES Verified 06/08/18 08:16 Home Medications: Home Medication List Medication Instructions Recorded Confirmed Last Taken Type ATORVAstatin [Lipitor] 40 mg PO QHS 11/26/17 09/21/18 Unknown History Ipratropium/Albuterol Sulfate 3 ml IH BID 11/26/17 09/21/18 04/29/18 08:00 History [Iprat-Albut 0.5-3(2.5) mg/3 ml] Levothyroxine [Synthroid] 200 microgm PO DAILY 11/26/17 09/21/18 09/20/18 History Multivitamin with Folic Acid 1 each PO DAILY 11/26/17 09/21/18 09/20/18 History [Thera Tablet] Pantoprazole Sodium 40 mg PO DAILY 11/26/17 09/21/18 09/20/18 History Potassium Chloride 20 meq PO DAILY 11/26/17 09/21/18 04/29/18 08:00 History Bisacodyl [Correctol] 5 mg PO DAILY 04/29/18 09/21/18 09/20/18 History Zinc 220 mg PO BID 04/29/18 09/21/18 04/29/18 08:00 History Bisacodyl [Dulcolax] 10 mg LA QHS PRN #10 supp 05/02/18 09/21/18 Unknown Rx Diltiazem C.d. [Cardizem Cd] 240 mg PO DAILY #60 cap 05/02/18 09/21/18 09/20/18 Rx Furosemide [Lasix] 80 mg PO DAILY #60 tab 05/02/18 09/21/18 Unknown Rx Lorazepam [Ativan] 1 mg PO QHS #30 tab 05/02/18 09/21/18 Unknown Rx Oxycodone HCl/Acetaminophen 1 tab PO Q4H PRN #20 tab 05/02/18 09/21/18 Unknown Rx [Percocet 10-325 mg Tablet] Apixaban [Eliquis] 5 mg PO BID 09/21/18 09/21/18 Unknown History Ascorbate Calcium [Vitamin C] 500 mg PO BID 09/21/18 09/21/18 Unknown History Bupropion HCl [Bupropion HCl Sr] 150 mg PO BID 09/21/18 09/21/18 Unknown History Cholecalciferol (Vitamin D3) 5,000 unit PO DIRECTED 09/21/18 09/21/18 Unknown History [Vitamin D3] Citalopram Hydrobromide 10 mg PO QHS 09/21/18 09/21/18 Unknown History [Citalopram HBr] Clopidogrel Bisulfate [Plavix] 75 mg PO DAILY 09/21/18 09/21/18 09/20/18 History Digoxin [Lanoxin] 125 microgm PO DIRECTED 09/21/18 09/21/18 Unknown History Gabapentin 200 mg PO BID 09/21/18 09/21/18 Unknown History Hydroxyzine [Atarax] 25 mg PO TID PRN 09/21/18 09/21/18 Unknown History Isosorbide Mononitrate E.r. [Imdur] 60 mg PO DAILY 09/21/18 09/21/18 09/20/18 History Lactulose 10 gm PO EVERY OTHER DAY 09/21/18 09/21/18 Unknown History Levothyroxine [Synthroid] 75 microgm PO DAILY 09/21/18 09/21/18 09/20/18 History Lorazepam [Ativan] 0.5 mg PO DIRECTED 09/21/18 09/21/18 Unknown History Melatonin/Pyridoxine [Melatonin 5 1 each PO QHS 09/21/18 09/21/18 Unknown History mg Tablet] Methocarbamol 750 mg PO TID 09/21/18 09/21/18 Unknown History Potassium Chloride E.r. [Klor-Con] 10 meq PO QHS 09/21/18 09/21/18 Unknown History Pramipexole Di-HCl [Mirapex] 1 mg PO QHS 09/22/18 09/22/18 Unknown History - History of Present Illness-Fever Nature of Presenting Problem: 73 yof presents to ED by EMS from alf care facility. EMS states facility states pt had AMS but is fine upon arrival of EMS and still oriented upon arrival to ED. EMS states pt is warm to touch and pt has 99.4 temp upon arrival. Pt states being extremely sleepy for the past 2-3 days. (Silvia Yan) 73 yof presents to ED by EMS from alf care facility. EMS states facility states pt had AMS but is fine upon arrival of EMS and still oriented upon arrival to ED. EMS states pt is warm to touch and pt has 99.4 temp upon arrival. Pt states being extremely sleepy for the past 2-3 days. (El Martino) Review of Systems - Adult - REVIEW OF SYSTEMS - ADULT Constitutional: reports: see HPI, chills, fever, fatique Eyes: reports: no symptoms reported Ears, Nose, Mouth & Throat: reports: no symptoms reported Cardiovascular: reports: no symptoms reported Respiratory: reports: no symptoms reported Gastrointestinal: reports: no symptoms reported Genitourinary: reports: no symptoms reported Musculoskeletal: reports: no symptoms reported Integumentary: reports: no symptoms reported Neurological: reports: no symptoms reported Psychiatric: reports: no symptoms reported Endocrine: reports: no symptoms reported Hematologic/Lymphatic: reports: no symptoms reported Allergic/Immunologic: reports: no symptoms reported All Other Systems: Reviewed and Negative <El Martino - Last Filed: 09/26/18 15:30> Past History - Adult - PAST MEDICAL HISTORY-ADULT Review of Records: reports: Old Records Reviewed, Nursing Assessment Review, Medications Reviewed Major Childhood Illnesses: reports: denies history Cardiovascular: reports: A-Fib, arrhythmia, CHF, HTN, [place] Respiratory: reports: asthma, COPD Gastrointestinal: reports: GERD Obstetrical/Gynecological: reports: denies history Genitourinary: reports: kidney disease Musculoskeletal: reports: arthritis Neurological: reports: denies history Psychiatric: reports: denies history Endocrine/Immune: reports: Diabetes, thyroid disorder Other Conditions: reports: denies history - PRIOR SURGERIES/PROCEDURES Surgical/Procedure History: reports: recent surgery (right knee replacement), hysterectomy, orthopedic (extremity) (carpal tunnel), joint replacement (right knee), other (thyroidectomy) - IMMUNIZATION STATUS Childhood Immunizations: See Nurse Assessment Flu Vaccine: See Nurse Assessment - FAMILY HISTORY Family History: reviewed, not pertinent <El Martino - Last Filed: 09/26/18 15:30> Physical Exam-General - PHYSICAL EXAM-ADULT Initial Vital Signs Reviewed: Yes - CONSTITUTIONAL General Appearance: alert, no apparent distress, obese. negative: appears well - EYES Eyes: PERRL/EOMI, pink conjunctivae - HEAD, EARS, NOSE, MOUTH & THROAT HENMT: moist mucous membranes, normal ENT inspection - NECK Neck: non-tender, full range of motion - RESPIRATORY Respiratory: chest non-tender, no respiratory distress, no accessory muscle use , crackles, wheezing. negative: lungs clear, normal breath sounds, rales, rhonchi - CARDIOVASCULAR Cardiovascular: regular rate, rhythm, no edema - GASTROINTESTINAL (ABDOMEN) Abdominal Exam: normal bowel sounds, non tender - LYMPHATIC Lymphatic: no adenopathy - MUSCULOSKELETAL Back Exam: normal inspection - SKIN Integumentary: diaphoresis, pallor - NEUROLOGIC Neurologic: handle bar assembler II-XII nml as tested - PSYCHIATRIC Psych/Mental Status: normal mood/affect, normal thought process, oriented x 3 <El Martino - Last Filed: 09/26/18 15:30> Progress - PLAN OF CARE/RESULTS Result Diagrams: 09/21/18 01:19 09/21/18 01:19 - REASSESSMENT Reassessment #1 Time Reassessed: 03:00 (received @ S/O, seen, examined. Heart RRR, lungs with decreased BS. Pt sleeping now) - EKG 1 Time of EKG reading by physician:: 03:20 (was shown to me @ my request) EKG Read and Signed by:: Tom Anders EKG Interpretation (*Must complete 3 of following elements*): Abnormal Rate: 62 Rhythm: a fib [place]: normal QRS: LBB - XRAY 1 XRAY Study: Chest Impression: Abnormal (pul vasc congestion, per me) - CONSULTS/PCP/HOSPITALIST Notification #1 *Consult/PCP/Hospitalist*: [place] Time Discussed: 03:05 Consult Disposition: Admit <Tom Anders - Last Filed: 09/21/18 03:29> - PLAN OF CARE/RESULTS Result Diagrams: 09/25/18 05:17 09/25/18 05:17 <El Martino - Last Filed: 09/26/18 15:30> - PLAN OF CARE/RESULTS Progress/Plan/Lab Results: Orders Category Date Time Status Admit - [facility] Routine AdmDCTranf 09/21/18 07:54 Active Activity - Up with Assistance EVERY SHIFT NURSING Care 09/21/18 07:54 Active Intake and Output-Strict Q 8-HR ASSESS Care 09/21/18 07:54 Active Nursing- MD Consult Request ROUTINE Care 09/21/18 07:54 Completed Vital Signs Order Q 8-HR ASSESS Care 09/21/18 07:54 Completed Z-Document. for Tele Applied ORDERED Care 09/21/18 07:54 Completed Physician/Provider Consults Routine Cons 09/21/18 07:54 Ordered Heart Healthy Diet Diet 09/21/18 07:54 Active CHEST-2 VIEWS [RAD] Stat Exams 09/21/18 00:52 Completed CHEST-PORTABLE [RAD] Routine Exams 09/22/18 06:00 Completed ABG [RESP] Routine Lab 09/21/18 03:55 Completed BASIC METABOLIC PANEL [CHEM] Routine Lab 09/22/18 05:02 Completed CBC WITH DIFF [HEME] Routine Lab 09/22/18 05:02 Completed CBC WITH ELECTRONIC DIFF [HEME] Stat Lab 09/21/18 01:19 Completed COMPREHENSIVE METABOLIC PANEL [CHEM] Stat Lab 09/21/18 01:19 Completed DIGOXIN [TDM] Stat Lab 09/21/18 01:19 Completed FERRITIN Routine Lab 09/22/18 05:02 Completed FOLATE Routine Lab 09/22/18 05:02 Completed LACTATE, PLASMA [CHEM] Stat Lab 09/21/18 01:19 Completed MAGNESIUM [CHEM] Routine Lab 09/22/18 05:02 Completed PRO B-NATRIURETIC PEPTIDE Stat Lab 09/21/18 01:19 Completed RETIC COUNT [HEME] Routine Lab 09/22/18 05:02 Completed TOTAL IRON [CHEM] Routine Lab 09/22/18 05:02 Completed TROPONIN T Q6H Lab 09/21/18 08:16 Completed TROPONIN T Q6H Lab 09/21/18 14:09 Completed TROPONIN T Stat Lab 09/21/18 01:19 Completed TSH Routine Lab 09/22/18 05:02 Completed VITAMIN B12 Routine Lab 09/22/18 05:02 Completed 0.9% Sodium Chloride Inj [Ns] 90 ml Med 09/21/18 08:30 Discontinued Furosemide [Lasix] 100 mg IV 5 mg/hr Acetaminophen [Tylenol] Med 09/21/18 07:54 Active 650 mg PO Q6H PRN PRN Albuterol 2.5MG/Ipratrop 0.5MG [Duoneb (A & A)] Med 09/21/18 00:59 Discontinued 3 ml INH NOW ONE Albuterol 2.5MG/Ipratrop 0.5MG [Duoneb (A & A)] Med 09/21/18 07:54 Active 3 ml INH RTQ6H Ammonium Lactate 12% Lotion [Lac-Hydrin 12% Lotion] Med 09/21/18 09:00 Active 0 gm TOP BID Furosemide [Lasix] Med 09/21/18 02:59 Discontinued 80 mg IV NOW ONE Nitroglycerin Med 09/21/18 07:54 Discontinued 0.5 inch TOP Q6H Nitroglycerin Med 09/21/18 01:53 Discontinued 1 inch TOP NOW ONE Ondansetron [Zofran] Med 09/21/18 07:54 Active 4 mg IV Q4H PRN PRN Potassium Chloride E.r. [Klor-Con] Med 09/21/18 03:56 Discontinued 40 meq PO NOW ONE Aerosol Treatments Routine Oth 09/21/18 00:59 Completed Aerosol Treatments Routine Oth 09/21/18 07:54 Completed Aerosol Treatments Stat Oth 09/21/18 00:59 Completed Aerosol Treatments Stat Oth 09/21/18 07:54 Completed Telemetry [OM.EQ] Routine Oth 09/21/18 07:54 Active EKG [EKG] Stat Ther 09/21/18 00:52 Draft Echo Spec/Color Dop W/O Contra Routine Ther 09/21/18 07:54 Completed Transfer/Admit Order [TRANSFER] Routine Transfer 09/21/18 03:19 Completed Departure - Departure Date of Disposition Decision: 09/21/18 Time of Disposition Decision: 03:05 - Critical Care Note This patient required my direct & personal management of CC.: No <Tom Anders - Last Filed: 09/21/18 03:29> - Departure Certified Medical Emergency: Emergent <El Martino - Last Filed: 09/26/18 15:30> - Departure DIAGNOSIS: Chronic anemia Congestive heart failure Qualifiers: Heart failure type: unspecified Heart failure chronicity: acute on chronic Qualified Code(s): I50.9 - Heart failure, unspecified Chronic renal insufficiency Qualifiers: Chronic kidney disease stage: unspecified stage Qualified Code(s): N18.9 - Chronic kidney disease, unspecified Disposition: ADMITTED INPATIENT 09 Condition: Stable Attestation - Physician/ KAYKAY Attestation Patient care was provided by Advanced Practice Provider:: No The physician spent face to face time with patient:: Yes Advanced Practice Provider documentation review:: Supervising physician onsite and consulted in the evaluation and care of this patient. The physician did have a face to face encounter with the patient. <El Martino - Last Filed: 09/26/18 15:30> This chart was documented by the indicated scribe, (Silvia Yan Scribe) and accurately reflects the services I performed and decisions made by , El Martino MD, as attested by the provider's signature.
[2018-09-26] MEDS: AZACTAM 1 GM in NS 50 ML IV SCH ×2 (16:03→23:04)
--- NOTE | 2018-09-26 17:34 | INFECTIOUS DISEASE PROGRESS NO ---
DATE: 09/26/2018 PRESENT ILLNESS: The patient has asymptomatic E coli urinary tract infection. She also has a severe allergy to penicillin. MEDICATIONS: The patient is receiving aztreonam. PHYSICAL EXAMINATION: Vital Signs: Temperature is 98.1, pulse 89, respirations 20, blood pressure 156/61. General: This is a morbidly obese, elderly female. She is in no acute distress. HEENT: She can hear my spoken words and see near objects. She does not have any white patches on her tongue. Neck: No stiffness. Lungs: Had diminished breath sounds, but I did not hear any rales or rhonchi. Cardiovascular: Heart rate is regular. Abdomen: Soft and nontender. Bones, joints, muscles: The patient has a right [id number]-[id number]-vjks amputation. The incision is intact. Neurologic: Patient is awake. She is very weak. LAB AND X-RAY: There is no new radiographic study. CBC for today shows a white count of 9640, hemoglobin 8.8, and platelet count 236,000. Creatinine is 1.4. GFR is 37. ASSESSMENT AND PLAN: Patient has a symptomatic urinary tract infection. She has a severe reaction to penicillin. I am going to treat her with aztreonam for 2 weeks. COMORBIDITIES: The patient has morbid obesity. She also is a diabetic. She is for the most part, bed-bound. cc: Wu Meyers MD
[2018-09-26] MEDS ORDERED: KLOR-CON PO ONE (18:02)
--- NOTE | 2018-09-26 18:16 | PROGRESS NOTE ---
DATE: 09/26/2018 SUBJECTIVE: The patient is resting comfortably in bed. OBJECTIVE: Vital signs: Temperature 98.1 degrees, pulse 89, respiratory rate 20, blood pressure is [*], oxygen saturation 99%. HEENT: She is atraumatic, normocephalic. Cardiovascular system: S1, S2. Respiratory system: Has evidence of good air entry bilaterally. Abdomen: Soft, nontender. No masses. Extremities: Has a right above-knee amputation and there is edema in the left lower extremity. LABORATORY DATA: None today. ASSESSMENT AND PLAN: 1. Acute on chronic diastolic heart failure/atrial fibrillation/coronary artery disease/hyperlipidemia. Management per Cardiology team. 2. Chronic kidney disease. Follow up on renal function. Consult with Nephrology. 3. Escherichia coli urinary tract infection. Continue antibiotics as recommended by ID. 4. Hypothyroidism. Continue levothyroxine. 5. Deep vein thrombosis (DVT) prophylaxis. The patient is on Eliquis. 6. Gastrointestinal (GI) prophylaxis. PPI. cc: Arjun Sage MD
[2018-09-26] MEDS: LIPITOR PO SCH (20:50)
[2018-09-27] MEDS: MORPHINE IV PRN ×2 (03:13→22:12)
[2018-09-27] MEDS: DUONEB (A & A) INH SCH ×5 (03:30→22:00)
[2018-09-27 07:40] LABS: BASO# 0.07 X1000 (0.0-0.2); BASO% 0.7 % (0.0-0.8); EOS# 0.09 X1000 (0.0-0.7); EOS% 0.9 % (0.0-10.0); HEMOGLOBIN 8.6 g/dL (12.0-16.0); IMM GRAN# 0.08 X1000 (0.0-0.04); IMM GRAN% 0.8 % (0.0-0.5); LYMPH# 1.41 X1000 (1.2-3.4); LYMPH% 13.9 % (20.5-51.1); MCH 31.4 PG (27-31); MCHC 30.7 g/dL (33-37); MCV 102.2 FL (81-99); MONO# 1.11 X1000 (0.11-0.59); MONO% 10.9 % (1.7-9.3); MPV 9.9 FL (7.4-10.4); NEUT% 72.8 % (42.2-75.2); PLT 237 X1000 (130-400); RBC 2.74 XMIL (4.2-5.4); RDW 14.4 % (11.5-14.5); WBC 10.16 X1000 (4.8-10.8)
[2018-09-27 07:41] LABS: ALB/GLOB RATIO 0.7; ALBUMIN 2.8 g/dL (3.5-5.0); CALCIUM 9.1 mg/dL (8.8-10.2); CREATININE 1.5 mg/dL (0.5-0.9); POTASSIUM 4.1 mmol/L (3.5-5.1); TOTAL BILIRUBIN 0.52 mg/dL (0.20-1.00); TOTAL PROTEIN 6.7 g/dL (6.3-8.3)
[2018-09-27] MEDS: PROTONIX PO SCH (08:16)
[2018-09-27] MEDS: SYNTHROID PO SCH ×2 (08:16→08:17)
[2018-09-27] MEDS: AZACTAM 1 GM in NS 50 ML IV SCH ×2 (08:24→17:16)
[2018-09-27] MEDS: TYLENOL PO PRN (08:26)
[2018-09-27] MEDS: NORVASC PO SCH (08:27)
[2018-09-27] MEDS: RANEXA PO SCH ×2 (08:27→20:16)
[2018-09-27] MEDS: IMDUR PO SCH (08:27)
[2018-09-27] MEDS: ELIQUIS PO SCH ×2 (08:28→20:16)
[2018-09-27] MEDS: ALDACTONE PO SCH ×2 (08:28→20:16)
[2018-09-27] MEDS: LAC-HYDRIN 12% LOTION TOP SCH ×2 (08:28→20:17)
[2018-09-27] MEDS: COREG PO SCH ×2 (08:28→20:16)
[2018-09-27] MEDS: LASIX IV SCH ×2 (08:30→20:17)
[2018-09-27] MEDS: PLAVIX PO SCH (08:53)
--- NOTE | 2018-09-27 09:40 | NEPHROLOGY CONSULTATION ---
DATE: 09/27/2018 REASON FOR ADMISSION: Increased work of breathing. CONSULTING PHYSICIAN: Dr. Sage. HISTORY OF PRESENT ILLNESS: Ms. Bustillos is a 73-year-old white female with a history of atrial fibrillation that is poorly controlled, hypertension, diastolic heart failure with morbid obesity. The patient stated that she is a resident of [facility] and that she had not been eating. It is documented that she developed some increased work of breathing prior to her admission. She is bed-bound. She denies any cough, fever or chills. No chest pain. Progressive swelling to her left lower extremity and abdomen. On admission, she did have some chest pain documented though she does not remember. During her hospitalization she has been evaluated by Cardiology and echocardiogram had poor visibility due to her body habitus. Dr. Meyers was consulted on 09/25 for symptomatic E- coli urinary tract infection. It is stated that he started her on aztreonam and is indicating that he will start her on a cephalosporin antibiotic possibly in the future. The patient is hallucinogenic. She is slightly confused. She does start talking and is more oriented but then she drifts during her conversation. PAST MEDICAL HISTORY: Documented with COPD, carotid disease, diastolic heart failure, hypothyroidism, hyperlipidemia, hypertensive disease, iron deficiency anemia, atrial fibrillation, poorly controlled and coronary artery disease. She has obesity. She is bed-bound. She has chronic venous stasis with plaques. 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 SOCIAL HISTORY: She is a resident of [facility]. Denies any tobacco, alcohol or illicit drug use. FAMILY HISTORY: Notable for heart disease, diabetes, and stroke.Allergies: Listed as penicillin. Home Medications: Lipitor, pantoprazole, ipratropium albuterol inhalers, levothyroxine, multivitamin, potassium chloride, Correctol, zinc, Cardizem CD, furosemide, Dulcolax, Ativan, Percocet, Eliquis, vitamin C, bupropion, vitamin D3, citalopram, Lanoxin, gabapentin, Atarax, Imdur, melatonin, methocarbamol, lactulose, and Mirapex. REVIEW OF SYSTEMS: Best obtained per patient with further information from chart.Vital signs: Most recent vital signs temperature 98.5 degrees, blood pressure 123/96, heart rate 70, respirations 20. She is currently on 2 L nasal cannula. Last recorded saturation is 100%. She has had 120 in she has had 1925 out to Smith catheter. LABORATORY DATA: Sodium 135, potassium 4.1, chloride 90, CO2 30, BUN 19, creatinine 1.5, glucose 99. Her anion gap is 15, calcium is 9.1, albumin 2.8. White count 10.16, hemoglobin 8.6, hematocrit 28, platelet count 237,000. Patient's last chest x-ray on the indicated a stable chest. Positive for pulmonary venous congestion, interstitial edema and large cardiac silhouette. Echocardiogram as mentioned. PHYSICAL EXAMINATION: General: This is a 73-year-old white female. She is resting in bed. She appears in no acute distress. Skin: Warm and dry. HEENT: Normocephalic, atraumatic. Conjunctiva is pale. She has PERRL. Mucous membranes are dry. Neck: Supple. Unable to determine JVD due to body habitus. Cardiovascular: S1, S2 noted. Unable to appreciate any murmur or gallop due to body habitus. She does have an appreciable irregular rhythm. Abdomen: Protuberant, large, round. No tenderness noted on palpation. Chest: She has poor inspiratory effort with decreased air flow. Remains on O2 secondary to body habitus. Extremities: She has a right AKA stump. She has left lower extremity with 1 to 2+ lower extremity edema. She does have chronic venous stasis with lichenification of her skin. She does have a slight red raised rash from her left thigh going into her groin and into her right upper thigh. Neurological: As mentioned above. ASSESSMENT AND PLAN: 1. Chronic kidney disease stage 3 B. The patient remains at her historical baseline creatinine of 1.6 to 1.7. She is actually at 1.5 on today's labs. Adequate urine output documented to Smith catheter. 2. Electrolytes and acid-base balance. These are within target. 3. Anemia; This is low but stable. 4. Lower extremity swelling. The patient continues on Lasix 80 mg IV every 12. May possibly look into lymphedema cause since she has received this Lasix 80 b.i.d. with adequate urine output and no change to her swelling is documented per primary care notes. Plan: The patient is at her historical baseline creatinine, adequate urine out. The patient remains in acute on chronic diastolic heart failure. This is followed by Cardiology with Oscar on board. The lasix has not bumped her creatinine to this point. At this time we will sign off, remain available if indicated during her hospital stay. I would like to thank you for allowing us to follow with this patient. Dictated by LAUREL Krishna for Ankur Canales MD Face to face encounter, data reviewed, discussed with Bk Jeffrey on 09/27/18. I agree with the above assessment and plan of care. cc: LAUREL Krishna MD [facility]
[2018-09-27] MEDS ORDERED: ULTRAM PO ONE (10:26)
[2018-09-27] MEDS: MIRALAX PO SCH ×2 (10:41→20:16)
[2018-09-27] MEDS: WELLBUTRIN SR PO SCH ×2 (10:53→20:16)
--- NOTE | 2018-09-27 15:18 | PROGRESS NOTE ---
DATE: 09/27/2018 SUBJECTIVE: This patient feels better but she seems to be confused. Urine culture from 09/21/2018 showed E coli. It looks like she is allergic to penicillin so we started this patient on aztreonam, Infectious Disease Department following this patient, will continue with the same management for now. We have been removing fluid so far 12.7 L, cardiology on board. Will monitor. No changes. OBJECTIVE: Vital Signs: Temperature 98.4, pulse 54, respiratory rate 20, blood pressure 124/53, oxygen saturation 100% on 2 L of nasal cannula. HEENT: Head normocephalic. No trauma. PERRLA. Neck: Supple. I cannot see JVD because of her neck size. Central trachea. Chest: Decreased breath sounds mostly at the bases. Some crepitus. Abdomen: Soft, obese, protuberant. Positive bowel sounds. Extremities: Left lower extremity edema 2 to 3+, right with probably some lymphedema as well, right above the knee amputation . Neurological: This patient is alert, she is oriented x2, she states that she is in [facility], she is following commands, as per the patient she has been buying pills to the nurses. LABORATORY: WBC 10.1, hemoglobin 8.6, hematocrit 28, platelets 237,000, sodium 135, potassium 4.1, chloride 90, bicarbonate 30, BUN 19, creatinine 1.5, glucose 99, calcium 9.1, AST 37, ALT 34, alkaline phosphatase 96, albumin 2.8. ASSESSMENT AND PLAN: 1. Acute on chronic diastolic congestive heart failure, left ventricular systolic function seems to be adequate, for now we will continue with the same management. Kidney function has been stable. We have been diuresing this patient really good, so far 12.7 L out. Cardiology Department on board. We will monitor this patient closely. 2. Atrial fibrillation with rapid ventricular response, rate controlled. Continue with same management. Cardiology on board. 3. Metabolic encephalopathy likely secondary to urinary tract infection, gram-negative rods, she has been placed on aztreonam, urine culture showed Escherichia coli, she is allergic to penicillin. 4. Urinary tract infection as above. 5. History of coronary artery disease, continue with same management. She is not complaining of chest pain. 6. Chronic kidney disease stage 3, aware. Kidney function has been stable. 7. Chronic hypoxic respiratory failure on home oxygen, aware. Continue with oxygen supplementation. 8. Hypothyroidism. Continue with same management. cc: José Miguel Adorno MD
--- NOTE | 2018-09-27 15:34 | INFECTIOUS DISEASE PROGRESS NO ---
DATE: 09/27/2018 PRESENT ILLNESS: Ms. Bustillos has an Escherichia coli urinary tract infection which has been symptomatic. There is also a severe allergy to penicillin. MEDICATION: She is receiving aztreonam 1 g IV every 8 hours. PHYSICAL EXAMINATION: Vital Signs: Temperature is 98.4, pulse rate 54, respiratory rate 20, blood pressure 124/53. O2 sats 100% on 2 L nasal cannula. General: This is a morbidly obese, elderly, chronically ill-appearing female. She is lying in the bed, currently in no acute distress. HEENT: Atraumatic, normocephalic. Oral mucous membranes are pink and moist. Conjunctivae are pale. Neck: Supple. Trachea is midline. Cardiovascular: Irregularly irregular. Atrial fibrillation on the monitor. Respiratory: Lung sounds are clear to auscultation. Diminished in the mid and bases. Abdomen: Soft, obese, nontender. Bowel sounds are active. Extremities: She has a right newku-grp-ctze amputation with some splotchy redness noted as well as brown discoloration with splotchy redness to her left lower extremity which the patient says is chronic. Neurologic: She is drowsy and lethargic, but arousable and oriented , with generalized weakness noted. LABORATORY AND X-RAY: Today her white count is 10.16, hemoglobin 8.6, platelet count 237,000. Creatinine is 1.5. GFR 34. Total bilirubin is 0.52, AST 37, ALT 34, alkaline phosphatase 96. Her urine culture has grown an Escherichia coli. No imaging reports today. ASSESSMENT AND PLAN: Ms. Bustillos has an Escherichia coli urinary tract infection which was symptomatic. Because of her history of hives with penicillin administration, she is receiving aztreonam, which we will continue at this time. The plan on discharge is for her to transfer back to [facility]. These plans have been discussed with and recommended by Dr. Meyers. COMORBIDITIES: For Ms. Bustillos include morbid obesity, diabetes mellitus, congestive heart failure, coronary artery disease, atrial fibrillation, right vvlff-snj-xkke amputation, and anemia. Dictated by LAUREL Walters for Wu Meyers MD This chart was documented by, LAUREL Walters and accurately reflects the services performed, treatment plan and medical decisions as attested by the providers signature Wu Meyers MD. cc: Wu Meyers MD [facility]
[2018-09-27] MEDS ORDERED: ULTRAM PO PRN (16:52)
[2018-09-27] MEDS: LIPITOR PO SCH (20:16)
[2018-09-27] MEDS: HALDOL IM PRN (22:59)
[2018-09-28] MEDS: AZACTAM 1 GM in NS 50 ML IV SCH ×3 (00:37→17:35)
[2018-09-28] MEDS: DUONEB (A & A) INH SCH ×4 (03:20→22:24)
[2018-09-28] MEDS: HALDOL IM PRN ×3 (04:00→17:31)
[2018-09-28] MEDS: PROTONIX PO SCH (06:16)
[2018-09-28] MEDS: SYNTHROID PO SCH ×2 (06:16)
[2018-09-28 07:10] LABS: BASO# 0.03 X1000 (0.0-0.2); BASO% 0.2 % (0.0-0.8); EOS# 0.07 X1000 (0.0-0.7); EOS% 0.6 % (0.0-10.0); HEMATOCRIT 27.1 % (37.0-47.0); HEMOGLOBIN 8.4 g/dL (12.0-16.0); IMM GRAN# 0.19 X1000 (0.0-0.04); IMM GRAN% 1.6 % (0.0-0.5); LYMPH% 13.1 % (20.5-51.1); MCH 30.1 PG (27-31); MCV 97.1 FL (81-99); MONO# 1.42 X1000 (0.11-0.59); MONO% 11.6 % (1.7-9.3); NEUT# 8.91 X1000 (1.4-6.5); NEUT% 72.9 % (42.2-75.2); PLT 296 X1000 (130-400); RBC 2.79 XMIL (4.2-5.4); WBC 12.22 X1000 (4.8-10.8)
[2018-09-28 07:28] LABS: CALCIUM 9.6 mg/dL (8.8-10.2); CREATININE 1.5 mg/dL (0.5-0.9); POTASSIUM 3.5 mmol/L (3.5-5.1)
[2018-09-28] MEDS: ELIQUIS PO SCH ×2 (09:59→22:36)
[2018-09-28] MEDS: NORVASC PO SCH (09:59)
[2018-09-28] MEDS: RANEXA PO SCH ×2 (09:59→22:35)
[2018-09-28] MEDS: ALDACTONE PO SCH ×2 (09:59→22:36)
[2018-09-28] MEDS: WELLBUTRIN SR PO SCH (09:59)
[2018-09-28] MEDS: IMDUR PO SCH (09:59)
[2018-09-28] MEDS: COREG PO SCH ×2 (09:59→22:36)
[2018-09-28] MEDS: MIRALAX PO SCH ×2 (09:59→22:36)
[2018-09-28] MEDS: PLAVIX PO SCH (09:59)
[2018-09-28] MEDS: LAC-HYDRIN 12% LOTION TOP SCH (09:59)
[2018-09-28] MEDS: LASIX IV SCH ×2 (09:59→22:36)
--- NOTE | 2018-09-28 10:12 | PROGRESS NOTE ---
DATE: 09/28/2018 SUBJECTIVE: It looks like the patient was confused during the night. At this moment, she is still a little bit confused. She is complaining of lower body discomfort/pain, mostly her legs and back. She is answering most of my questions. She does have a urinary tract infection. We will continue with the same management. OBJECTIVE: Vital Signs: Temperature 97.9, pulse 104, respiratory rate 22, blood pressure 132/71, oxygen saturation 95% on room air. HEENT: Head normocephalic, no trauma. PERRLA. Neck: Supple. I cannot see JVD because of her neck size. Central trachea. Chest: Decreased breath sounds mostly at the bases. Some crepitus. Abdomen: Soft, obese, protuberant. Positive bowel sounds. Extremities: Left lower extremity edema around 2 to 3+. Probably some lymphedema as well. Right AKA/ixngh-afp-zzfc amputation. Neurological: This patient is alert. She is oriented x2. She is not oriented to time, but this moment, she is following commands and answering most of my questions. LABORATORY DATA: WBC 12.2, hemoglobin 8.4, hematocrit 27.1, platelets 296,000. Sodium 135, potassium 3.5, chloride 90, bicarbonate 31, BUN 19, creatinine 1.5, glucose 91, calcium 9.6. ASSESSMENT AND PLAN: 1. Acute on chronic diastolic heart failure. Left ventricular systolic function seems to be adequate. We will continue with the same management. Kidney function has been stable. We have been diuresing this patient and so far we have removed 13.7 L. Cardiology department on board. We will monitor this patient closely. 2. Atrial fibrillation with rapid ventricular response (RVR), rate controlled. Continue with the same management. 3. Metabolic encephalopathy, likely secondary to urinary tract infection with Escherichia coli. Infectious Disease department on board. We will continue with antibiotics. 4. Urinary tract infection, as above, due to coli. 5. History of coronary artery disease. No chest pain at this moment. 6. Chronic kidney disease, stage 3. Aware. Kidney function has been stable, even though she has been getting furosemide. 7. Chronic hypoxic respiratory failure, on home oxygen. Aware. Continue with oxygen supplementation. 8. Hypothyroidism. Continue with same management. cc: José Miguel Adorno MD
--- NOTE | 2018-09-28 15:57 | Diag Imaging Result Doc PS360 ---
EXAM: CHEST-PORTABLE HISTORY: pneumonia TECHNIQUE: Portable chest single view COMPARISON: 09/24/2018 FINDINGS: The lungs are well expanded. The heart is mildly enlarged. The vessels are mildly distended. There are no infiltrates. No effusion identified. There is a granuloma in the lower right lung. IMPRESSION: Cardiomegaly with mild pulmonary edema. Electronically signed by Pérez Bunch 09/28/2018 3:55 PM
--- NOTE | 2018-09-28 16:07 | INFECTIOUS DISEASE PROGRESS NO ---
DATE: 09/28/2018 PRESENT ILLNESS: Ms. Bustillos has an Escherichia coli urinary tract infection. She has also become more confused recently and has a leukocytosis today. There is a cellulitis noted to her right vxlef-ann-xlrp amputation and left lower extremity. MEDICATIONS: She has been receiving aztreonam 1 gram IV every 8 hours as a renally modified dose. PHYSICAL EXAMINATION: Vital Signs: Temperature is 97.9 degrees, pulse rate 84, respiratory rate 22, blood pressure 133/91, and O2 saturation is 95% on 3 L nasal cannula. General: This is a morbidly obese, chronically ill-appearing, elderly female. She is lying in bed, currently in no acute distress. HEENT: Atraumatic, normocephalic. Oral mucous membranes are pink and dry. Conjunctivae are pale. Neck: Supple. Trachea is midline. Cardiovascular: Irregularly irregular. Respiratory: Lung sounds are clear in the upper lobes, diminished in the mid and bases. Abdomen: Soft, obese, nontender. Bowel sounds are active. Extremities: She has a right lyxpw-rdb-anxv amputation with splotchy erythema, as well as some brown discoloration with splotchy erythema to the left lower extremity. Neurologic: She is lethargic, but arousable and oriented to person only. Generalized weakness is noted. LABORATORY AND X-RAY: Today her white count is 12.22, hemoglobin 8.4, platelet count 296,000. Creatinine is 1.5, GFR 34. Her urine culture has grown Escherichia coli. No imaging reports today. ASSESSMENT AND PLAN: Ms. Bustillos is being treated for Escherichia coli urinary tract infection. It seems as though she is getting more confused and has an elevated white count today. There has been a temperature of 99 degrees maximum noted. At this point, we will go ahead and add methicillin-resistant Staphylococcus aureus coverage using Zyvox 600 mg by mouth every 12 hours. We have also temporarily discontinued her Ultram and Wellbutrin due to the coadministration of Zyvox causing possible side effects. We will recheck her urinalysis and urine culture today, get a portable chest x-ray, and repeat blood cultures. The patient has been treated in the past for lower extremity cellulitis, and current medications should help to cover any growth of lower extremity bacteria. These plans have been discussed with and recommended by Dr. Meyers. COMORBIDITIES: The comorbidities for Ms. Bustillos include that she is elderly and morbidly obese with congestive heart failure, diabetes mellitus, atrial fibrillation, coronary artery disease, right hurkh-csa-ylwh amputation, anemia, and history of lower extremity cellulitis. Dictated by LAUREL Walters for Wu Meyers MD This chart was documented by, LAUREL Walters and accurately reflects the services performed, treatment plan and medical decisions as attested by the providers signature Wu Meyers MD. cc: Wu Meyers MD [facility]
[2018-09-28] MEDS: MORPHINE IV PRN (17:31)
[2018-09-28 19:01] LABS: URINE SOURCE CLEAN CATCH
[2018-09-28 19:16] LABS: BILIRUBIN URINE NEGATIVE (NEGATIVE); BLOOD URINE SMALL (NEGATIVE); COLOR YELLOW; GLUCOSE URINE NEGATIVE (NEGATIVE); KETONE URINE NEGATIVE (NEGATIVE); LEUKOCYTES URINE MODERATE (NEGATIVE); NITRITE URINE NEGATIVE (NEGATIVE); PROTEIN URINE 30 mg/dL (NEGATIVE); SP GRAVITY URINE 1.004; TURBIDITY URINE CLEAR (CLEAR); UROBILINOGEN URINE NORMAL (NORMAL)
[2018-09-28 19:18] LABS: UR EPITHELIAL CELLS <10 /HPF (<10); URINE BACTERIA 1+ /HPF; URINE WBC 20-40 /HPF (<10)
[2018-09-28] MEDS: LIPITOR PO SCH (22:36)
[2018-09-28] MEDS: ZYVOX PO SCH (22:40)
[2018-09-29] MEDS: AZACTAM 1 GM in NS 50 ML IV SCH ×3 (00:08→17:02)
[2018-09-29] MEDS: LAC-HYDRIN 12% LOTION TOP SCH ×3 (01:58→21:46)
[2018-09-29] MEDS: DUONEB (A & A) INH SCH ×4 (04:15→21:05)
[2018-09-29] MEDS: PROTONIX PO SCH (06:21)
[2018-09-29] MEDS: SYNTHROID PO SCH ×2 (06:21→06:22)
[2018-09-29 07:31] LABS: BASO# 0.04 X1000 (0.0-0.2); BASO% 0.4 % (0.0-0.8); EOS# 0.17 X1000 (0.0-0.7); EOS% 1.5 % (0.0-10.0); HEMATOCRIT 26.3 % (37.0-47.0); IMM GRAN# 0.17 X1000 (0.0-0.04); IMM GRAN% 1.5 % (0.0-0.5); LYMPH# 1.62 X1000 (1.2-3.4); LYMPH% 14.2 % (20.5-51.1); MCH 29.9 PG (27-31); MCHC 30.4 g/dL (33-37); MCV 98.1 FL (81-99); MONO# 1.28 X1000 (0.11-0.59); MONO% 11.3 % (1.7-9.3); MPV 9.8 FL (7.4-10.4); NEUT# 8.09 X1000 (1.4-6.5); NEUT% 71.1 % (42.2-75.2); PLT 288 X1000 (130-400); RBC 2.68 XMIL (4.2-5.4); WBC 11.37 X1000 (4.8-10.8)
[2018-09-29 07:57] LABS: CALCIUM 8.4 mg/dL (8.8-10.2); CREATININE 1.3 mg/dL (0.5-0.9); POTASSIUM 3.5 mmol/L (3.5-5.1)
[2018-09-29] MEDS: MIRALAX PO SCH ×2 (08:43→21:46)
[2018-09-29] MEDS: ZYVOX PO SCH ×2 (08:43→21:46)
[2018-09-29] MEDS: IMDUR PO SCH (08:43)
[2018-09-29] MEDS: PLAVIX PO SCH (08:43)
[2018-09-29] MEDS: ELIQUIS PO SCH ×2 (08:43→21:46)
[2018-09-29] MEDS: COREG PO SCH ×2 (08:43→21:46)
[2018-09-29] MEDS: LASIX IV SCH ×2 (08:43→21:46)
[2018-09-29] MEDS: ALDACTONE PO SCH ×2 (08:43→21:46)
[2018-09-29] MEDS: NORVASC PO SCH (08:43)
[2018-09-29] MEDS: RANEXA PO SCH ×2 (08:43→21:46)
--- NOTE | 2018-09-29 11:32 | PROGRESS NOTE ---
DATE: 09/29/2018 SUBJECTIVE: No acute events overnight. Actually, the patient slept the whole night. When I went to the room, this patient was sleepy, but arousable. She is oriented x2. She states that she is at [facility]. She knows she is in the hospital but she does not know which one. She seems to be less anxious compared with yesterday. She is still complaining of pain at this moment. OBJECTIVE: Vital Signs: Temperature 97.5 degrees, pulse 78, respiratory rate 16, blood pressure 127/73, oxygen saturation 97% on 2 L of nasal cannula. HEENT: Head normocephalic. No trauma. PERRLA. Neck: Supple. No JVD. No masses. Central trachea. Chest: Decreased breath sounds mostly at the bases and some crepitus. Abdomen: Soft, obese, and protuberant. Positive bowel sounds. There is some wall edema. Extremities: Left lower extremity edema around 2 to 3+ probably also lymphedema as well. Right AKA. Neurological: The patient is alert. She is oriented x3, but she does not remember the name of this hospital. She believes she is at [facility]. She is following commands and answering most of my questions. LABORATORY: WBC 11.3, hemoglobin 8, hematocrit 26.3, and platelet 288,000. Sodium 138, potassium 3.5, chloride 91, bicarbonate 34, BUN 21, creatinine 1.3, glucose 95, calcium 8.4, and BMP 3800. ASSESSMENT AND PLAN: 1. Acute on chronic diastolic heart failure, left ventricular systolic function seems to be stable. Continue with diuresis. Kidney function has been stable. So far, we removed a total of 16.5 L of negative balance. 2. Atrial fibrillation with RVR, rate controlled. Continue with the same management. She is on anticoagulation. 3. Metabolic encephalopathy, likely secondary to urinary tract infection with E. coli. Infectious Disease is on board. We will continue with antibiotics. This is getting better. 4. Urinary tract infection. As above. We repeated a new urine culture that has been negative so far. 5. History of coronary artery disease. No chest pain at this moment. 6. Chronic kidney disease stage 3. Aware. Kidney function has been stable even though she has been getting furosemide. 7. Chronic hypoxic respiratory failure on home oxygen. Aware. Continue with oxygen supplementation. 8. Hypothyroidism. Continue with levothyroxine. cc: José Miguel Adorno MD
[2018-09-29] MEDS: HALDOL IM PRN ×2 (17:02→22:52)
[2018-09-29] MEDS: MORPHINE IV PRN ×2 (17:02→22:52)
--- NOTE | 2018-09-29 17:22 | INFECTIOUS DISEASE PROGRESS NO ---
DATE: 09/29/2018 PRESENT ILLNESS: Ms. Bustillos is being treated for an Escherichia coli urinary tract infection. She had developed a leukocytosis and confusion yesterday and there is a bilateral cellulitis to the right dsbuw-zoo-ehmq amputation and left lower extremity, which is chronic. MEDICATIONS: She is receiving day 3 of aztreonam 1 g IV every 8 hours as a renally modified dose. Yesterday she was also put on Zyvox 600 mg by mouth every 12 hours. PHYSICAL EXAMINATION: Vital Signs: Temp 97.5, pulse rate 63, respiratory rate 16, blood pressure 147/92, O2 saturation is 98% on 2 L nasal cannula. General: This is a morbidly obese, chronically ill-appearing, elderly female. She is lying in bed, currently in no acute distress. HEENT: Atraumatic, normocephalic. Oral mucous membranes are pink and dry. Conjunctivae are pale. Neck: Supple. Trachea is midline. Respiratory: Lung sounds are clear in the upper lobes, diminished in the mid and bases. Cardiovascular: Irregularly irregular. Atrial fibrillation on the monitor. Abdomen: Soft, obese, and nontender. Bowel sounds are active. Neurologic: She is awake, alert, and oriented to person only. She think she is in [facility] [place] and said it was 2000. She is able to move her upper extremities without much difficulty. However, lower extremities are very weak. Integument: There is splotchy erythema noted to her right rwukk-bci-jmtr amputation as well as to her left lower extremity which also has some brown discoloration. LABORATORY AND X-RAY: Today her white count is 11.37, hemoglobin 8, platelet count 288,000. Creatinine is 1.3, GFR 40. Urinalysis done yesterday showed 1+ bacteria and 20- 40 WBCs. Urine culture is pending as well as blood cultures, which are preliminary. Chest x- ray done yesterday afternoon shows cardiomegaly with mild pulmonary edema and no infiltrates. ASSESSMENT AND PLAN: Ms. Bustillos has a Escherichia coli urinary tract infection and yesterday started getting more confused and had an elevated white count. She has blood cultures and a urine culture which are pending. She is receiving aztreonam and Zyvox. At this point her white count is down mildly, so we will continue these. There is a bilateral lower extremity cellulitis which is chronic. She continues to be confused. Chest x-ray does not indicate any pneumonia. For now we will continue antibiotics as ordered and await the final culture results. These plans have been discussed with and recommended by Dr. Meyers. COMORBIDITIES: For Ms. Bustillos include morbid obesity, congestive heart failure, diabetes mellitus, atrial fibrillation, coronary artery disease, right irfoz-rsb-arjr amputation, anemia, and chronic lower extremity cellulitis. Dictated by LAUREL Walters for Wu Meyers MD This chart was documented by, LAUREL Walters and accurately reflects the services performed, treatment plan and medical decisions as attested by the providers signature Wu Meyers MD. cc: Wu Meyers MD [facility]
[2018-09-29] MEDS: LIPITOR PO SCH (21:46)
[2018-09-30] MEDS: AZACTAM 1 GM in NS 50 ML IV SCH ×3 (00:02→17:41)
[2018-09-30] MEDS: DUONEB (A & A) INH SCH ×4 (04:24→21:00)
[2018-09-30] MEDS: SYNTHROID PO SCH ×4 (05:55→07:28)
[2018-09-30] MEDS: MORPHINE IV PRN ×3 (05:55→20:11)
[2018-09-30] MEDS: PROTONIX PO SCH ×2 (05:55→07:28)
--- NOTE | 2018-09-30 06:47 | Diag Imaging Result Doc PS360 ---
EXAM: CHEST-PORTABLE HISTORY: dyspnea TECHNIQUE: Portable chest single view COMPARISON: 09/28/2018 FINDINGS: The lungs are well expanded. The heart is mildly enlarged. The vessels are mildly distended. There are no infiltrates. No effusion identified. IMPRESSION: Persistent cardiomegaly with pulmonary edema. Electronically signed by Pérez Bunch 09/30/2018 6:45 AM
[2018-09-30 07:09] LABS: CALCIUM 9.4 mg/dL (8.8-10.2); CREATININE 1.4 mg/dL (0.5-0.9); POTASSIUM 3.5 mmol/L (3.5-5.1)
[2018-09-30 07:14] LABS: BASO# 0.03 X1000 (0.0-0.2); BASO% 0.3 % (0.0-0.8); EOS# 0.17 X1000 (0.0-0.7); EOS% 1.7 % (0.0-10.0); HEMATOCRIT 26.2 % (37.0-47.0); IMM GRAN# 0.18 X1000 (0.0-0.04); IMM GRAN% 1.8 % (0.0-0.5); LYMPH# 1.39 X1000 (1.2-3.4); LYMPH% 13.9 % (20.5-51.1); MCH 30.1 PG (27-31); MCHC 30.5 g/dL (33-37); MCV 98.5 FL (81-99); MONO# 1.22 X1000 (0.11-0.59); MONO% 12.2 % (1.7-9.3); MPV 9.5 FL (7.4-10.4); NEUT# 7.04 X1000 (1.4-6.5); NEUT% 70.1 % (42.2-75.2); PLT 322 X1000 (130-400); RBC 2.66 XMIL (4.2-5.4); RDW 14.1 % (11.5-14.5); WBC 10.03 X1000 (4.8-10.8)
[2018-09-30] MEDS: COREG PO SCH ×2 (09:20→20:12)
[2018-09-30] MEDS: ALDACTONE PO SCH ×2 (09:20→20:13)
[2018-09-30] MEDS: ZYVOX PO SCH (09:20)
[2018-09-30] MEDS: LASIX IV SCH (09:20)
[2018-09-30] MEDS: IMDUR PO SCH (09:20)
[2018-09-30] MEDS: ELIQUIS PO SCH ×2 (09:20→20:12)
[2018-09-30] MEDS: NORVASC PO SCH (09:20)
[2018-09-30] MEDS: PLAVIX PO SCH (09:20)
[2018-09-30] MEDS: LAC-HYDRIN 12% LOTION TOP SCH ×2 (09:21→20:14)
[2018-09-30] MEDS: RANEXA PO SCH ×2 (09:21→20:12)
[2018-09-30] MEDS: MIRALAX PO SCH ×2 (09:21→20:12)
[2018-09-30] MEDS: LACTULOSE PO SCH ×2 (09:21→20:13)
--- NOTE | 2018-09-30 13:00 | DISCHARGE SUMMARY ---
ADMISSION DATE: 09/21/2018 DISCHARGE DATE: 09/30/2018 PRIMARY CARE PHYSICIAN: Franki Motley MD. CONSULTATIONS: 1. Romain Canas MD with Cardiology. 2. Ankur Canales MD with Nephrology. 3. Wu Meyers MD with Infectious Disease. PROCEDURES AND FINDINGS: 1. Chest x-ray 09/21/2018 reveals mild cardiomegaly with pulmonary edema. 2. Echocardiogram 09/21/2018 reveals a very limited study secondary to body habitus. Left ventricular function may be normal, however, difficult to tell if there is any wall motion abnormality. 3. EKG 09/21/2018 reveals atrial fibrillation with a left bundle branch block. DISCHARGE DIAGNOSES: 1. Acute on chronic diastolic heart failure. Left ventricular systolic function appears to be normal, although echocardiogram that was completed was a limited study secondary to patient's body habitus. This patient has been diuresed and so far a total of 16.5 L of negative balance. Kidney function has remained stable with diuresis. 2. Atrial fibrillation. This patient has been rate controlled and she will continue with Eliquis for anticoagulation. 3. Metabolic encephalopathy in this is likely secondary to urinary tract infection with Escherichia coli. This patient has been treated with IV antibiotics and she will continue with p.o. antibiotics per Infectious Disease. 4. Urinary tract infection. See above. The last urine culture showed no growth. She has been followed by Dr. Meyers, Infectious Disease, and treated with IV aztreonam. She has now been placed on Zyvox by mouth. 5. History of coronary artery disease. She has not complained of chest pain. Aware. 6. Chronic kidney disease, stage 3. Aware. Dr. Canales was consulted during her hospital stay. Her kidney function has remained stable despite diuresis. 7. Chronic hypoxic respiratory failure. She will continue with home oxygen. 8. Hypothyroidism. She will continue with levothyroxine. Her TSH is 1.86. HOSPITAL COURSE: Ms. Bustillos is a 73-year-old female with past medical history of COPD, coronary artery disease, diastolic heart failure, hypothyroidism, and atrial fibrillation. She is also morbidly obese and bed-bound and resides at [facility]. For the past 3 days, she complained of increase in shortness of breath, orthopnea, and progressive worsening of swelling in her left lower extremity and abdomen. She also stated that she had intermittent chest pain lasting about 2 minutes. She was admitted and received aggressive diuresis as well as supportive therapy including nebulizer treatments. An echocardiogram was attempted, although the study was very limited secondary to body habitus. It was believed the left ventricular function was normal, although difficult to tell if there was any wall motion abnormality. The patient is in permanent atrial fibrillation, and continued with metoprolol and Xarelto. It was also determined that this patient had a urinary tract infection with E coli. Dr. Meyers with Infectious Disease was consulted and this patient received aztreonam IV for treatment. She has now been transitioned to Zyvox p.o. She has experienced some encephalopathy secondary to the urinary tract infection. Her kidney function has remained stable despite diuresis. She has maintained adequate urine output. She has experienced a persistent hypokalemia and therefore, her spironolactone has been increased to 25 mg twice a day. She should be monitored closely for potassium elevation. She is now symptomatically improved and clinically improved and is stable for discharge back to [facility]. She will follow up with Dr. Davis, cardiology on 10/06/2018 and will need to have lab work completed prior to this on 10/05/2018. Her last vital signs were temperature 98.1 degrees, heart rate 91, respiratory rate 64, blood pressure 137/67, and O2 saturation 98% on 2 L of nasal cannula. Her last labs showed WBC 10.0, hemoglobin 8.0, hematocrit 26.2, platelets 322,000. Sodium 136, potassium 3.5, BUN 19, creatinine 1.4. ProBNP 3802. DISCHARGE MEDICATIONS: Per Dr. Huntley. Please see MAR. FOLLOWUP: The patient will follow up with Dr. Daniel Davis with Cardiology on 10/06/2018 at 11:15 a.m. at the [facility], phone number [phone]. This patient should have a BMP and magnesium level drawn at [facility] on 10/05/2018 so the [facility] may follow up with these results. This patient will be discharged to [facility] where she previously resided. Please return to the emergency room for any chest pain, shortness of breath or worsening of symptoms. Please complete all antibiotics as prescribed per Dr. Meyers. Dictated by LAUREL Canales for José Miguel Adorno MD cc: MD Franki Brand MD Reginald D. Gladish, MD Leroy F. Harris, MD William D. Denney, MD
--- NOTE | 2018-09-30 17:54 | INFECTIOUS DISEASE PROGRESS NO ---
DATE: 09/30/2018 PRESENT ILLNESS: The patient is being treated for a urinary tract infection. Yesterday she developed leukocytosis, altered mental status, and bilateral cellulitis of the legs. MEDICATIONS: This is the fourth day of aztreonam for the patient. Two days ago she was put on Zyvox. PHYSICAL EXAMINATION: Vital Signs: Temperature is 98.1 degrees, pulse 91, respirations 64, blood pressure 137/67. General: This is a chronically ill-appearing elderly female who is morbidly obese. Head, eyes, ears, nose and throat: She can hear my spoken words and see near objects. She does not have any drainage from her nose or ears. She talks in a coherent fashion. She does not have any white patches on her tongue. Neck: No meningismus. Lungs: Clear to auscultation. Cardiovascular: Heart rate is irregular. Abdomen: Soft, nontender. Extremities: Both legs are not erythematous today. Neurologic: The patient is awake. She is very weak, and it is difficult for her to move her extremities. Integument: The rash has cleared. LABORATORY AND X-RAY: There is no new radiographic study. CBC today shows a white count of 10,030, hemoglobin 8 and platelet count 322,000. Creatinine is 1.4. GFR is 37. A urine culture initially grew E coli. Repeat urine culture now is growing a gram-negative, the results of which are still pending. ASSESSMENT AND PLAN: The patient has a urinary tract infection for which she is on aztreonam. I am waiting for the results of the repeat urine culture, which is growing a gram-negative shashank and may well be Escherichia coli. COMORBIDITIES: Include morbid obesity, congestive heart failure, diabetes mellitus, and chronic leg cellulitis. cc: Wu Meyers MD
--- NOTE | 2018-09-30 19:25 | PROGRESS NOTE ---
DATE: 09/30/2018 SUBJECTIVE: Patient reports feeling that she is nearing her baseline with diuresis. She denies shortness of breath on supplemental oxygen per nasal cannula. There has been no chest pain. OBJECTIVE: Vital Signs: Blood pressure 120/60, heart rate 77, oxygen saturation 93%. Neck: JV distention cannot be appreciated. Chest: Clear to auscultation bilaterally. Cardiac Exam: Reveals a regular rate and rhythm without appreciable murmur or gallop. Extremities: Noteworthy for chronic stasis changes in the distal left lower extremity with very mild edema. LABORATORY DATA: Includes a white blood cell count of 10.03, hematocrit 26.2, hemoglobin 8.0, platelet count 322,000, sodium 136, potassium 3.5, chloride 91, carbon dioxide 33, BUN 19 creatinine 1.4, glucose 274. IMPRESSION: 1. Acute on chronic congestive heart failure with preserved left ventricular systolic function. The patient has significantly improved with diuresis and appears to be reaching her baseline volume status after significant diuresis. 2. Atherosclerotic coronary disease. Patient continues without angina. 3. Atrial fibrillation. Rate controlled. 4. Morbid obesity. 5. Status post right [id number] amputation. 6. Hypertension. 7. Hyperlipidemia. 8. Chronic kidney disease. Stable. 9. Strongly suspect obstructive sleep apnea. RECOMMENDATIONS: 1. Transition back to the patient's usual diuretic regimen with oral Lasix. 2. Appears reasonable for [facility]. 3. Conservative cardiovascular management overall in light of patient's severe comorbidities. I will see her further as needed. cc: Romain Canas MD
[2018-09-30] MEDS: LIPITOR PO SCH (20:12)
[2018-09-30] MEDS: LASIX PO SCH (20:12)
[2018-10-01] MEDS: MORPHINE IV PRN ×6 (00:52→23:46)
[2018-10-01] MEDS: AZACTAM 1 GM in NS 50 ML IV SCH ×3 (02:05→21:20)
[2018-10-01] MEDS: HALDOL IM PRN (02:08)
[2018-10-01] MEDS: DUONEB (A & A) INH SCH ×4 (04:58→23:45)
[2018-10-01] MEDS: PROTONIX PO SCH (06:07)
[2018-10-01] MEDS: SYNTHROID PO SCH ×2 (06:07)
[2018-10-01 06:50] LABS: HEMATOCRIT 26.9 % (37.0-47.0); HEMOGLOBIN 8.2 g/dL (12.0-16.0); MCH 30.3 PG (27-31); MCHC 30.5 g/dL (33-37); MCV 99.3 FL (81-99); MPV 9.6 FL (7.4-10.4); RBC 2.71 XMIL (4.2-5.4); RDW 14.2 % (11.5-14.5); WBC 11.88 X1000 (4.8-10.8)
[2018-10-01 07:09] LABS: CALCIUM 9.6 mg/dL (8.8-10.2); CREATININE 1.3 mg/dL (0.5-0.9); POTASSIUM 3.2 mmol/L (3.5-5.1)
[2018-10-01] MEDS ORDERED: KLOR-CON PO ONE (08:58)
[2018-10-01] MEDS: RANEXA PO SCH ×2 (10:33→21:20)
[2018-10-01] MEDS: PLAVIX PO SCH (10:33)
[2018-10-01] MEDS: LASIX PO SCH ×2 (10:34→21:20)
[2018-10-01] MEDS: MIRALAX PO SCH ×2 (10:34→22:09)
[2018-10-01] MEDS: NORVASC PO SCH (10:34)
[2018-10-01] MEDS: ELIQUIS PO SCH ×2 (10:34→21:20)
[2018-10-01] MEDS: COREG PO SCH ×2 (10:34→21:20)
[2018-10-01] MEDS: IMDUR PO SCH (10:34)
[2018-10-01] MEDS: ALDACTONE PO SCH ×2 (10:34→21:20)
[2018-10-01] MEDS: LAC-HYDRIN 12% LOTION TOP SCH ×2 (10:35→22:09)
[2018-10-01] MEDS: LACTULOSE PO SCH ×2 (10:35→10:41)
--- NOTE | 2018-10-01 13:00 | PROGRESS NOTE ---
DATE: 10/01/2018 SUBJECTIVE: No acute events overnight. Smith catheter has been removed. Will put this patient on p.o. Lasix instead of IV, she seems to be diuresing good and the kidney function has been stable, low potassium level. We will give her some potassium. Yesterday, she had 4 bowel movements. I will decrease the dose of the lactulose from twice a day to once a day to see how she does. OBJECTIVE: Vital Signs: Temperature 97.4 degrees, pulse 67, respiratory rate 18, blood pressure 111/68, oxygen saturation 100% on 3 L of nasal cannula. HEENT: Head normocephalic. No trauma. PERRLA. Neck: Supple. I cannot see JVD because of her neck size. Central trachea. Chest: Some crepitus at the bases. Abdomen: Soft, obese, protuberant and positive bowel sounds. There is some wall edema. Extremities: Left lower extremity edema around 2 to 3+, probably also lymphedema as well, right AKA. Neurological: The patient is alert. She is oriented x3. She is following commands and answering most of my questions. LABORATORY: WBC 11.8, hemoglobin 8.2, hematocrit 26.9, platelets 333,000, sodium 138, potassium 3.2, chloride 92, bicarbonate 35, BUN 9, creatinine 1.3, glucose 95, calcium 9.6. ASSESSMENT AND PLAN: 1. Acute on chronic diastolic heart failure. Left ventricular systolic function seems to be adequate, continue with diuresis. Kidney function is stable. So far he has been having a urine output of 18.8 L. 2. Atrial fibrillation with RVR, rate controlled. Continue with same management. She is on anticoagulation. 3. Metabolic encephalopathy likely secondary to urinary tract infection. Infectious Disease Department on board. 4. Urinary tract infection. As above. 5. History of coronary artery disease, no chest pain at this moment. 6. Chronic kidney disease stage 3. Aware. Kidney function has been stable even though she has been getting furosemide. 7. Chronic hypoxic respiratory failure on home oxygen, aware. Continue with oxygen supplementation. 8. Hypothyroidism. Continue with levothyroxine. 9. Apparently this patient has been having severe allergies to penicillin, she is not complaining of burning sensation or any pain during urination at this moment. For now we will continue with aspirin and new urine culture showed enterococcal faecalis. I will discuss the case with Dr. Meyers tomorrow. cc: José Miguel Adorno MD
[2018-10-01] MEDS: LIPITOR PO SCH (21:20)
[2018-10-02] MEDS: AZACTAM 1 GM in NS 50 ML IV SCH ×2 (05:07→13:45)
[2018-10-02] MEDS: PROTONIX PO SCH ×2 (05:08→06:19)
[2018-10-02] MEDS: MORPHINE IV PRN ×4 (05:08→20:38)
[2018-10-02] MEDS: SYNTHROID PO SCH ×4 (05:08→06:19)
[2018-10-02] MEDS: DUONEB (A & A) INH SCH ×4 (05:44→15:31)
[2018-10-02 08:44] LABS: CALCIUM 9.5 mg/dL (8.8-10.2); CREATININE 1.4 mg/dL (0.5-0.9); POTASSIUM 3.6 mmol/L (3.5-5.1)
[2018-10-02] MEDS: LASIX PO SCH ×2 (11:26→20:37)
[2018-10-02] MEDS: IMDUR PO SCH (11:26)
[2018-10-02] MEDS: NORVASC PO SCH (11:27)
[2018-10-02] MEDS: ELIQUIS PO SCH ×2 (11:27→20:37)
[2018-10-02] MEDS: PLAVIX PO SCH (11:27)
[2018-10-02] MEDS: ALDACTONE PO SCH ×2 (11:27→20:38)
[2018-10-02] MEDS: COREG PO SCH ×2 (11:27→20:37)
[2018-10-02] MEDS: RANEXA PO SCH ×2 (11:27→20:37)
[2018-10-02] MEDS: LAC-HYDRIN 12% LOTION TOP SCH ×2 (11:31→20:38)
[2018-10-02] MEDS: MIRALAX PO SCH ×2 (11:32→20:37)
[2018-10-02] MEDS: LACTULOSE PO SCH (11:32)
[2018-10-02] MEDS: ZOFRAN IV PRN (11:43)
--- NOTE | 2018-10-02 14:04 | PROGRESS NOTE ---
DATE: 10/02/2018 SUBJECTIVE: No acute events overnight. Kidney function has been stable. We have a new urine culture that showed enterococcal faecalis. I discussed the case with Infectious Disease doctor. I will wait for recommendations. OBJECTIVE: Vital Signs: Temperature 97.5 degrees, pulse 62, respiratory rate 17, blood pressure 136/62, oxygen saturation 100% on 3 L of nasal cannula. HEENT: Head normocephalic. No trauma. PERRLA. Neck: Supple. I cannot see JVD because of her neck size. Central trachea. Chest: With some crepitus at the bases. Abdomen: Soft, obese, protuberant. Positive bowel sounds. She has some wall edema mostly at side. Extremities: Left lower extremity edema around 2+ and likely also lymphedema as well. Right AKA. Neurological: This patient is sleepy, but arousable. She is following commands. Moving all 4 extremities. Extremities: She is oriented. LABORATORY: Sodium 137, potassium 3.6, chloride 90, bicarbonate 21, creatinine 1.4, glucose 94, calcium 9.5. ASSESSMENT AND PLAN: 1. [id number] diastolic heart failure. Left ventricular systolic functions seems to be adequate. Continue with diuresis. We have been removing more than 18 L. 2. Atrial fibrillation with rapid ventricular response, rate controlled. Continue with the same management. She is on anticoagulation. 3. Metabolic encephalopathy likely secondary to urinary tract infection. Infectious Disease Department on board. We do have a new urine culture that showed Enterococcus faecalis and previous to that urine culture that showed Escherichia coli. The Smith catheter has been removed. We will monitor. The case has been discussed with Infectious Disease Department. 4. Urinary tract infection as above. 5. History of coronary artery disease. No chest pain at this moment. 6. Chronic kidney disease stage 3, aware. Kidney function has been stable even though she has been getting diuretics. 7. Chronic hypoxic respiratory failure on home oxygen, aware. Continue with the same management. 8. Hypothyroidism. Continue with levothyroxine. 9. Apparently this patient has been having severe allergies to penicillin. She is not complaining of urinary tract infection symptoms at this moment, but she was confused. Case has been discussed with Infectious Disease Department. The new urine culture showed Enterococcal faecalis. We will wait for recommendations. cc: José Miguel Adorno MD
--- NOTE | 2018-10-02 17:17 | INFECTIOUS DISEASE PROGRESS NO ---
DATE: 10/02/2018 PRESENT ILLNESS: The patient is being treated for an E coli urinary tract infection. She is not having any symptoms of urinary tract infection currently. We have a repeat urine culture now which is growing enterococcus. Again I mention that she is not having any symptoms of a urinary tract infection such as dysuria, suprapubic pain or flank pain or low back pain. MEDICATIONS: The patient has been on aztreonam for 7 days. PHYSICAL EXAMINATION: Vital Signs: Temperature is 97.5 degrees, pulse 62, respirations 17, blood pressure 136/62. General: This is a chronically ill-appearing, morbidly obese, elderly female. She is in no acute distress. Head/eyes/ears/nose/throat: She can hear my spoken words and see near objects. She does not have any white coating of her tongue. Neck: No meningismus. Lungs: Clear to auscultation. Cardiovascular: Irregular heart rate. Abdomen: Soft and nontender. Extremities: The patient has crusting on the left leg but there is no erythema. Neurologic: Patient is alert. She can move her extremities but she is very weak. LAB AND X-RAY: There is no new radiographic study. CBC shows a white count of 11,880, hemoglobin 8.2, platelet count is 333,000. Creatinine is 1.4. GFR is 37. The patient's latest urine culture grew Enterococcus. ASSESSMENT AND PLAN: The patient has an asymptomatic urinary tract infection. At this time, I plan to stop all antibiotics on the patient. I am going to repeat her CBC and if the white count is dropping, then the plan Dr. Huntley and I have is to send the patient home tomorrow on no antibiotics. I mention again that the enterococcal urinary tract infection which is what the patient has now is asymptomatic. Therefore, no treatment is indicated and hopefully the white blood cell count will be less also. COMORBIDITIES: The patient is morbidly obese. She has congestive heart failure, diabetes mellitus and leg edema. cc: Wu Meyers MD
[2018-10-02] MEDS: LIPITOR PO SCH (20:37)
[2018-10-03] MEDS: HALDOL IM PRN (00:27)
[2018-10-03] MEDS: DUONEB (A & A) INH SCH ×5 (02:03→21:40)
[2018-10-03] MEDS: MORPHINE IV PRN ×5 (03:31→17:10)
[2018-10-03] MEDS: SYNTHROID PO SCH ×2 (06:32)
[2018-10-03] MEDS: PROTONIX PO SCH (06:32)
[2018-10-03 08:18] LABS: BASO# 0.04 X1000 (0.0-0.2); BASO% 0.4 % (0.0-0.8); EOS# 0.17 X1000 (0.0-0.7); EOS% 1.7 % (0.0-10.0); HEMATOCRIT 28.7 % (37.0-47.0); HEMOGLOBIN 8.6 g/dL (12.0-16.0); IMM GRAN# 0.18 X1000 (0.0-0.04); IMM GRAN% 1.8 % (0.0-0.5); LYMPH# 1.71 X1000 (1.2-3.4); LYMPH% 17.1 % (20.5-51.1); MCH 29.8 PG (27-31); MCV 99.3 FL (81-99); MONO# 1.19 X1000 (0.11-0.59); MONO% 11.9 % (1.7-9.3); MPV 9.4 FL (7.4-10.4); NEUT# 6.71 X1000 (1.4-6.5); NEUT% 67.1 % (42.2-75.2); PLT 371 X1000 (130-400); RBC 2.89 XMIL (4.2-5.4); RDW 14.2 % (11.5-14.5)
[2018-10-03 08:28] LABS: CALCIUM 9.6 mg/dL (8.8-10.2); CREATININE 1.3 mg/dL (0.5-0.9); POTASSIUM 3.7 mmol/L (3.5-5.1)
[2018-10-03] MEDS: RANEXA PO SCH (10:31)
[2018-10-03] MEDS: IMDUR PO SCH (10:32)
[2018-10-03] MEDS: COREG PO SCH (10:32)
[2018-10-03] MEDS: ELIQUIS PO SCH (10:32)
[2018-10-03] MEDS: ALDACTONE PO SCH (10:32)
[2018-10-03] MEDS: PLAVIX PO SCH (10:32)
[2018-10-03] MEDS: LASIX PO SCH (10:32)
[2018-10-03] MEDS: NORVASC PO SCH (10:32)
[2018-10-03] MEDS: LAC-HYDRIN 12% LOTION TOP SCH (10:33)
[2018-10-03] MEDS: MIRALAX PO SCH (10:33)
[2018-10-03] MEDS: LACTULOSE PO SCH (10:33)
[2018-10-03 11:18] VITALS: BP 123/71
--- NOTE | 2018-10-03 12:51 | DISCHARGE SUMMARY ---
ADMISSION DATE: 09/21/2018 DISCHARGE DATE: 10/03/2018 CONSULTATIONS: 1. Dr. Davis , Cardiology. 2. Dr. Meyers with Infectious Disease. 3. Dr. Canales with Nephrology. PERTINENT PROCEDURES: 1. Chest x-ray showed mild cardiomegaly with pulmonary edema. 2. Echocardiogram limited secondary to body habitus. DISCHARGE DIAGNOSES: 1. Acute on chronic diastolic heart failure. The left ventricular systolic function appears to be normal. The patient was diuresed with IV Lasix: Several liters negative balance. Her kidney function has remained stable. 2. Atrial fibrillation. Rate controlled and will continue on Eliquis. 3. Metabolic encephalopathy believed to be secondary to urinary tract infection with E coli. The patient has been treated with IV antibiotics and followed by Infectious Disease. 4. Urinary tract infection. Last urine culture showed no growth. She is not having symptoms and will not be discharged on any p.o. medications. 5. History of coronary artery disease. No complaints of chest pain. 6. Chronic kidney disease stage 3, followed by Dr. Canales. 7. Chronic hypoxic respiratory failure. We will continue home O2. 8. Hypothyroidism. Continue Synthroid. HOSPITAL COURSE: Ms. Bustillos is a 73-year-old female with past medical history of COPD, coronary artery disease, diastolic heart failure, hypothyroidism, and atrial fibrillation, morbidly obese and bed-bound state, and resides at [facility]. She came to the ED for 3-day history of increasing shortness of breath, orthopnea, and progressively worsening swelling to her left lower extremities and abdomen. She was admitted to the hospital and aggressively diuresed. She was found to have a probable urinary tract infection for which she was followed by Dr. Meyers. She was on IV antibiotics and transitioned to p.o. Zyvox. Her most recent urine culture shows no growth. She is not having any symptoms. Her encephalopathy has resolved and she will not be discharged home with p.o. antibiotics. She is continued with adequate urine output several liters and negative for fluid balance. She did continue to have persistent hypokalemia with her diuresis and her spironolactone had to be increased to 25 twice a day. Monitored electrolytes closely. She was initially to be discharged home on 09/30/2018, but was kept to be watched over the weekend. She has remained stable. Electrolytes and kidney function are all within normal limits. She will be discharged back to [facility] today. VITAL SIGNS: Temperature is 98.1 degrees, heart rate 86, respirations 16, blood pressure 148/102, O2 is 100% on 3 L nasal cannula. DISCHARGE DIET: Healthy heart. DISCHARGE MEDICATIONS: 1. Citalopram 10 mg p.o. at bedtime. 2. Lipitor 40 mg p.o. at bedtime. 3. Melatonin 5 mg p.o. at bedtime. 4. Mirapex 1 p.o. at bedtime. 5. Hydroxyzine 25 mg p.o. t.i.d. p.r.n. 6. Correctol 5 mg p.o. daily. 7. Eliquis 5 mg p.o. b.i.d. 8. Imdur 60 mg p.o. daily. 9. Ipratropium/albuterol sulfate 3 mL inhaled b.i.d. 10. Methocarbamol and PTH assay are a.m. mL 750 mg p.o. t.i.d. 11. Protonix 40 mg p.o. daily. 12. Plavix 75 mg p.o. daily. 13. Synthroid 200 mcg p.o. daily. 14. Synthroid 75 mcg p.o. daily. 15. Thera tablet 1 each p.o. daily. 16. Vitamin C 500 mg p.o. b.i.d. 17. Vitamin D3 5000 units p.o. as directed. 18. Zinc 220 mg p.o. b.i.d. 19. Ativan 1 mg p.o. at bedtime. 20. Bisacodyl 10 mg DC at bedtime p.r.n. 21. Aldactone 25 mg p.o. b.i.d. 22. Coreg 12.5 mg p.o. b.i.d. 23. DuoNeb 3 mL inhaled q.6 hours p.r.n. 24. Lactulose 30 mL p.o. b.i.d. p.r.n. if no bowel movement in 2 days. 25. Lactulose 30 mL p.o. daily. 26. Lasix 80 mg p.o. b.i.d. 27. MiraLAX 17 g p.o. b.i.d. 28. Norvasc 5 mg p.o. daily. 29. Percocet 10/325 one tab p.o. q.4 hours p.r.n. 30. Ranexa 1000 mg p.o. b.i.d. 31. Tylenol 650 mg p.o. q.6 hours p.r.n. FOLLOW-UP: Ms. Bustillos is being discharged back to [facility]. She is to follow up with Cardiology on October 06 at 11:15 a.m. She will need a BMP and a [facility] May follow up with these results. She is to take all medications as prescribed. She can return to the ED or call 911 for any worsening of symptoms. Dictated by LAUREL Gonzales for José Miguel Adorno MD cc: MD Ankur Valle MD Leroy F. Harris, MD Omar J. Sosa-Chirinos, MD [facility]
[2018-10-03] MEDS: TYLENOL PO PRN (20:03)
== END 2018-10-03 23:00 | DRG 291 ==
LOC: ED 00:05 → 3S 07:04 → SUATTDRO 07:04 → 3S 09-22 00:51 → 3N 09-25 18:02
PROVIDERS: ATTEND Internal Medicine
CPT/HCPCS: 71010; 71020; 71045; 71046; 80048; 80053; 80162; 81001; 81025; 82607; 82728; 82746; 82805; 82948; 83540; 83605; 83735; 83880; 84443; 84484; 85025; 85027; 85045; 87040; 87077; 87088; 87186; 93005; 93306; 94640; 94761; 96374; 97163; 97165; 97535; 99285; A9270; C8924; J1630; J1940; J1956; J2270; J2405; Q9957; S0073; XXXXX

== ENCOUNTER 2019-03-25 05:18 | Inpatient (IN) ==
--- NOTE | 2019-03-25 05:34 | PROVIDER DOCUMENTATION ---
HPI-Respiratory General - General Chief Complaint: Shortness of Breath Stated Complaint: resp distress Time Seen by Provider: 03/25/19 05:27 Allergies/Adverse Reactions: Patient Allergies Allergy/AdvReac Type Severity Reaction Status Date / Time Penicillins Allergy Mild HIVES Verified 06/08/18 08:16 Home Medications: Home Medication List Medication Instructions Recorded Confirmed Last Taken Type ATORVAstatin [Lipitor] 40 mg PO QHS 11/26/17 09/21/18 Unknown History Ipratropium/Albuterol Sulfate 3 ml IH BID 11/26/17 09/21/18 04/29/18 08:00 History [Iprat-Albut 0.5-3(2.5) mg/3 ml] Levothyroxine [Synthroid] 200 microgm PO DAILY 11/26/17 09/21/18 09/20/18 History Multivitamin with Folic Acid 1 each PO DAILY 11/26/17 09/21/18 09/20/18 History [Thera Tablet] Pantoprazole Sodium 40 mg PO DAILY 11/26/17 09/21/18 09/20/18 History Bisacodyl [Correctol] 5 mg PO DAILY 04/29/18 09/21/18 09/20/18 History Zinc 220 mg PO BID 04/29/18 09/21/18 04/29/18 08:00 History Bisacodyl [Dulcolax] 10 mg AL QHS PRN #10 supp 05/02/18 09/21/18 Unknown Rx Apixaban [Eliquis] 5 mg PO BID 09/21/18 09/21/18 Unknown History Ascorbate Calcium [Vitamin C] 500 mg PO BID 09/21/18 09/21/18 Unknown History Cholecalciferol (Vitamin D3) 5,000 unit PO DIRECTED 09/21/18 09/21/18 Unknown History [Vitamin D3] Citalopram Hydrobromide 10 mg PO QHS 09/21/18 09/21/18 Unknown History [Citalopram HBr] Clopidogrel Bisulfate [Plavix] 75 mg PO DAILY 09/21/18 09/21/18 09/20/18 History Hydroxyzine [Atarax] 25 mg PO TID PRN 09/21/18 09/21/18 Unknown History Isosorbide Mononitrate E.r. [Imdur] 60 mg PO DAILY 09/21/18 09/21/18 09/20/18 History Levothyroxine [Synthroid] 75 microgm PO DAILY 09/21/18 09/21/18 09/20/18 History Melatonin/Pyridoxine [Melatonin 5 1 each PO QHS 09/21/18 09/21/18 Unknown History mg Tablet] Methocarbamol 750 mg PO TID 09/21/18 09/21/18 Unknown History Pramipexole Di-HCl [Mirapex] 1 mg PO QHS 09/22/18 09/22/18 Unknown History Acetaminophen [Tylenol] 650 mg PO Q6H PRN PRN tab 09/30/18 Unknown Rx Furosemide [Lasix] 80 mg PO BID #120 tab 09/30/18 Unknown Rx Lactulose 30 ml PO BID PRN #1 udc 09/30/18 Unknown Rx Lorazepam [Ativan] 1 mg PO QHS #30 tab 09/30/18 Unknown Rx Oxycodone HCl/Acetaminophen 1 tab PO Q4H PRN #20 tab 09/30/18 Unknown Rx [Percocet 10-325 mg Tablet] Polyethylene Glycol 3350 [Miralax] 17 gm PO BID powder, packet 09/30/18 Unknown Rx Ranolazine E.r. [Ranexa] 1,000 mg PO BID #120 tab 09/30/18 Unknown Rx Spironolactone [Aldactone] 25 mg PO BID #120 tab 09/30/18 Unknown Rx Albuterol 2.5MG/Ipratrop 0.5MG 3 ml INH RTQ6H PRN neb 10/03/18 Unknown Rx [Duoneb (A & A)] Amlodipine [Norvasc] 5 mg PO DAILY #90 tab 10/03/18 Unknown Rx Carvedilol [Coreg] 12.5 mg PO BID #120 tab 10/03/18 Unknown Rx Lactulose 30 ml PO DAILY udc 10/03/18 Unknown Rx - History of Present Illness-Resp Nature of Presenting Problem: patient was noted by the intermediate staff to be hypoxic with decreased mental status. Upon EMS arrival, she was noted to have O2 sats 60's-70's. That arose to 100% on a NRB. Patient reports feeling well and has no complaint. No further history or ROS is available. Of note, patient is a DNR 1. Review of Systems - Adult - REVIEW OF SYSTEMS - ADULT ROS:: unobtainable per condition Constitutional: reports: see HPI Eyes: reports: no symptoms reported Ears, Nose, Mouth & Throat: reports: no symptoms reported Cardiovascular: reports: no symptoms reported Respiratory: reports: no symptoms reported Gastrointestinal: reports: no symptoms reported Genitourinary: reports: no symptoms reported Musculoskeletal: reports: no symptoms reported Integumentary: reports: no symptoms reported Neurological: reports: no symptoms reported Psychiatric: reports: no symptoms reported Endocrine: reports: no symptoms reported Hematologic/Lymphatic: reports: no symptoms reported Allergic/Immunologic: reports: no symptoms reported All Other Systems: Reviewed and Negative Past History - Adult - PAST MEDICAL HISTORY-ADULT Review of Records: reports: Old Records Reviewed Major Childhood Illnesses: reports: denies history Cardiovascular: reports: A-Fib, arrhythmia, CHF, HTN, [place] Respiratory: reports: asthma, COPD Gastrointestinal: reports: GERD Obstetrical/Gynecological: reports: denies history Genitourinary: reports: kidney disease Musculoskeletal: reports: arthritis Neurological: reports: denies history Psychiatric: reports: denies history Endocrine/Immune: reports: Diabetes, thyroid disorder Other Conditions: reports: denies history - PRIOR SURGERIES/PROCEDURES Surgical/Procedure History: reports: recent surgery (right knee replacement), hysterectomy, orthopedic (extremity) (carpal tunnel), joint replacement (right knee), other (thyroidectomy) - IMMUNIZATION STATUS Childhood Immunizations: See Nurse Assessment Flu Vaccine: See Nurse Assessment - FAMILY HISTORY Family History: reviewed, not pertinent Physical Exam-General - PHYSICAL EXAM-ADULT Initial Vital Signs Reviewed: Yes - CONSTITUTIONAL General Appearance: moderate distress, obese - EYES Eyes: PERRL/EOMI, pink conjunctivae, anisocoria - HEAD, EARS, NOSE, MOUTH & THROAT HENMT: normocephalic/atraumatic, moist mucous membranes - NECK Neck: non-tender, full range of motion - RESPIRATORY Respiratory: chest non-tender, decreased breath sounds - CARDIOVASCULAR Cardiovascular: normal peripheral pulses, regular rate, rhythm, no edema - GASTROINTESTINAL (ABDOMEN) Abdominal Exam: non tender, soft, no organomegaly - LYMPHATIC Lymphatic: no adenopathy - MUSCULOSKELETAL Back Exam: normal inspection, no CVA tenderness, no vertebral tenderness Extremity: normal range of motion, non-tender - SKIN Integumentary: normal color, normal turgor - NEUROLOGIC Neurologic: grossly normal - PSYCHIATRIC Psych/Mental Status: other (somnolent) Progress - PLAN OF CARE/RESULTS Progress/Plan/Lab Results: Vital Signs - 8 hr 03/25/19 05:28 03/25/19 05:30 03/25/19 05:45 Temperature Pulse Rate Respiratory Rate Blood Pressure O2 Sat by Pulse Oximetry 100 100 100 03/25/19 06:00 03/25/19 06:18 03/25/19 06:30 Temperature Pulse Rate Respiratory Rate Blood Pressure O2 Sat by Pulse Oximetry 100 72 L 100 03/25/19 06:45 03/25/19 07:00 03/25/19 07:03 Temperature Pulse Rate Respiratory Rate Blood Pressure 116/74 O2 Sat by Pulse Oximetry 100 100 100 03/25/19 07:13 Temperature 98.4 F Pulse Rate 109 H Respiratory Rate 26 H Blood Pressure 116/74 O2 Sat by Pulse Oximetry 100 Laboratory Results - last 24 hr 03/25/19 03/25/19 03/25/19 05:36 05:36 05:36 WBC 8.67 RBC 2.63 L Hgb 7.4 L Hct 24.9 L MCV 94.7 MCH 28.1 MCHC 29.7 L RDW Std Deviation 17.3 H Plt Count 259 MPV 10.1 Neut % (Auto) 75.5 H Lymph % (Auto) 10.3 L Banks % (Auto) 14.1 H Eos % (Auto) 0.0 Baso % (Auto) 0.1 Neut # (Auto) 6.55 H Lymph # (Auto) 0.89 L Banks # (Auto) 1.22 H Eos # (Auto) 0.00 Baso # (Auto) 0.01 Segmented Neutrophils Not Reportable PT INR PTT (Actin FS) Sodium 137 Potassium 5.8 H Chloride 92 L Carbon Dioxide 27 Anion Gap 18 BUN 59 H Creatinine 2.1 H Estimated GFR/1.73 m2 23 BUN/Creatinine Ratio 28 Glucose 119 H Calculated Osmolality 292 Calcium 9.6 Total Bilirubin 0.74 AST 1005 H ALT 930 H Alkaline Phosphatase 89 Troponin T Plt-A-Ujwdxwdlqol Pept 56009 H Total Protein 7.6 Albumin 3.9 Globulin 3.7 Albumin/Globulin Ratio 1.1 03/25/19 03/25/19 05:36 07:45 WBC RBC Hgb Hct MCV MCH MCHC RDW Std Deviation Plt Count MPV Neut % (Auto) Lymph % (Auto) Banks % (Auto) Eos % (Auto) Baso % (Auto) Neut # (Auto) Lymph # (Auto) Banks # (Auto) Eos # (Auto) Baso # (Auto) Segmented Neutrophils PT 28.6 H INR 2.60 PTT (Actin FS) 29.8 Sodium Potassium Chloride Carbon Dioxide Anion Gap BUN Creatinine Estimated GFR/1.73 m2 BUN/Creatinine Ratio Glucose Calculated Osmolality Calcium Total Bilirubin AST ALT Alkaline Phosphatase Troponin T < 0.010 Dxx-C-Ygnaneodfwn Pept Total Protein Albumin Globulin Albumin/Globulin Ratio Orders Category Date Time Status CHEST-PORTABLE [RAD] Stat Exams 03/25/19 05:28 Completed BLOOD CULTURE [BLDCUL] Stat Lab 03/25/19 07:45 Received CBC WITH ELECTRONIC DIFF [HEME] Stat Lab 03/25/19 05:36 Completed COMPREHENSIVE METABOLIC PANEL [CHEM] Stat Lab 03/25/19 05:36 Completed PRO B-NATRIURETIC PEPTIDE Stat Lab 03/25/19 05:36 Completed PROTIME WITH INR [COAG] Stat Lab 03/25/19 07:45 Completed PTT [COAG] Stat Lab 03/25/19 07:45 Completed Stool [OCCULT BLOOD SCREENING] [STOOL] Stat Lab 03/25/19 08:53 Uncollected TROPONIN T Stat Lab 03/25/19 05:36 Completed Furosemide [Lasix] Med 03/25/19 06:57 Discontinued 40 mg IV NOW ONE Sodium Polystyrene [Kayexalate] Med 03/25/19 08:53 Once 30 gm PO NOW ONE EKG [EKG] Stat Ther 03/25/19 05:21 Draft Result Diagrams: 03/25/19 05:36 03/25/19 05:36 - EKG 1 Time of EKG reading by physician:: 05:30 - CONSULTS/PCP/HOSPITALIST Notification #1 *Consult/PCP/Hospitalist*: Hospitalist Service (Dr. Pereyra) Time Discussed: 08:54 Consult Disposition: Admit - CHANGE OF SHIFT REPORT (ED Provider) 1 Report Given and Care Transferred to:: Assumed care of this patient at shift change. Awaiting troponin and dispo. Time of Transfer: 07:00 Items Pending: Labs Departure - Departure Date of Disposition Decision: 03/25/19 Time of Disposition Decision: 08:55 DIAGNOSIS: CHF exacerbation Qualifiers: Heart failure type: unspecified Qualified Code(s): I50.9 - Heart failure, unspecified Disposition: ADMITTED INPATIENT 09 Certified Medical Emergency: Emergent Condition: Stable Referrals and Follow-Ups: Franki Motley MD [Primary Care Provider] - - Critical Care Note This patient required my direct & personal management of CC.: No Attestation - Physician/ KAYKAY Attestation Patient care was provided by Advanced Practice Provider:: No The physician spent face to face time with patient:: Yes Advanced Practice Provider documentation review:: Supervising physician onsite and consulted in the evaluation and care of this patient. The physician did have a face to face encounter with the patient.
--- NOTE | 2019-03-25 05:47 | EKG Report ---
Test Performed on : 03/25/2019 05:27:20 AM Test Reason : SOB Blood Pressure : / mmHG Vent. Rate : 097 BPM Atrial Rate : 097 BPM P-R Int : 000 ms QRS Dur : 184 ms QT Int : 424 ms P-R-T Axes : 000 -15 098 degrees QTc Int : 538 ms Undetermined rhythm Left bundle branch block Abnormal ECG When compared with ECG of 21-SEP-2018 03:11, Current undetermined rhythm precludes rhythm comparison, needs review QRS duration has increased Nonspecific T wave abnormality no longer evident in Inferior leads T wave inversion no longer evident in Anterior leads QT has lengthened Unconfirmed Result
[2019-03-25 06:36] LABS: BASO# 0.01 X1000 (0.0-0.2); BASO% 0.1 % (0.0-0.8); HEMATOCRIT 24.9 % (37.0-47.0); HEMOGLOBIN 7.4 g/dL (12.0-16.0); LYMPH# 0.89 X1000 (1.2-3.4); LYMPH% 10.3 % (20.5-51.1); MCH 28.1 PG (27-31); MCHC 29.7 g/dL (33-37); MCV 94.7 FL (81-99); MONO# 1.22 X1000 (0.11-0.59); MONO% 14.1 % (1.7-9.3); MPV 10.1 FL (7.4-10.4); NEUT# 6.55 X1000 (1.4-6.5); NEUT% 75.5 % (42.2-75.2); PLT 259 X1000 (130-400); RBC 2.63 XMIL (4.2-5.4); RDW 17.3 % (11.5-14.5); WBC 8.67 X1000 (4.8-10.8)
[2019-03-25 06:47] LABS: ALB/GLOB RATIO 1.1; ALBUMIN 3.9 g/dL (3.5-5.0); CALCIUM 9.6 mg/dL (8.8-10.2); CREATININE 2.1 mg/dL (0.5-0.9); POTASSIUM 5.8 mmol/L (3.5-5.1); TOTAL BILIRUBIN 0.74 mg/dL (0.20-1.00); TOTAL PROTEIN 7.6 g/dL (6.3-8.3)
[2019-03-25] MEDS ORDERED: LASIX IV ONE (06:57)
--- NOTE | 2019-03-25 07:47 | Diag Imaging Result Doc PS360 ---
EXAM: CHEST-PORTABLE INDICATION: dyspnea TECHNIQUE: One view COMPARISON: 09/30/2018 FINDINGS: Lung volumes are very low and there is overlying soft tissue attenuation. There are perihilar infiltrates likely representing pulmonary edema. There is increased opacity at the left lung base as well suggesting edema +/- pneumonia. There is a stable nodular density at the right lung base. There is a possible effusion on the left. Cardiac silhouette is prominent but stable. IMPRESSION: Severely low lung volumes with evidence of pulmonary edema and possible effusion at the left lung base plus or minus pneumonia. Electronically signed by Vinicius Silva 03/25/2019 7:45 AM
[2019-03-25 08:25] LABS: INR 2.6; PROTIME 28.6 Seconds (11.0-16.0); PTT 29.8 Seconds (22.3-41.8)
[2019-03-25] MEDS ORDERED: KAYEXALATE PO ONE (08:53)
[2019-03-25] MEDS ORDERED: KAYEXALATE PR ONE (09:39)
[2019-03-25 09:40] LABS: ALLEN TEST NO; BE 3.2 mmoll (-3.0-3.0); BLOOD TYPE ARTERIAL; HCO3-(ACT) 27.4 mmoll (20.0-26.0); METHB 1.5 % (0.0-1.5); O2(CT) 10.8 mL/dL (15.0-23.0); O2HB 91.7 % (95.0-99.0); PO2(98.6) 83 mmHg (60-100); SAMPLE BLOOD; SAO2 94.7 % (95.0-100.0); THB 8.3 g/dL (11.5-17.4)
[2019-03-25 09:42] LABS: MODALITY NRB
[2019-03-25 09:43] LABS: PCO2(98.6) 93 mmHg (35-45); pH(98.6) 7.16 (7.35-7.45)
[2019-03-25] MEDS ORDERED: LEVOPHED 8 MG in D5 1/2 NS 250 ML IV SCH (10:00)
[2019-03-25] MEDS ORDERED: VANCOMYCIN IV PER PHARMACY MISC SCH (10:15)
--- NOTE | 2019-03-25 10:30 | HISTORY AND PHYSICAL ---
PRIMARY CARE PHYSICIAN: Dr. Motley at [facility]. CHIEF COMPLAINT: Found in respiratory distress by detention staff. Upon EMS arrival was noted to have an O2 saturation in the 60s to 70s. Placed on non-rebreather and O2 saturation came up to 100%. Was sent to the emergency room for evaluation. HISTORY OF PRESENTING ILLNESS: This is a 73-year-old morbidly obese female, who presents to [facility] via EMS after she was found to be in respiratory distress, hypoxic and with decreased mental status. On EMS arrival, they noted that she had an O2 saturation in the 60s to 70s. They placed her on a non-rebreather and her O2 saturation came up to 100%. She is lethargic, lying in the bed. Does not answer any questions, only moans. Her workup in the emergency room showed an O2 saturation on arrival of 100% on the non-rebreather. Her laboratory data showed an hemoglobin and hematocrit of 7.4 and 24.9. Her potassium was 5.8, BUN of 59 with a creatinine of 2.1, and her baseline appears to be between 1.3 to 1.7. Her AST is 1005, ALT of 930. Her proBNP was 12,549. Her previous proBNP in September 2008 was 3802. Her chest x-ray showed severely low lung volumes with evidence of pulmonary edema and possible effusion at the left lung base plus minus pneumonia. So, she will be admitted to the PVC unit for further evaluation and treatment. It is noted that the patient is a DNR level 1 per detention records. PAST MEDICAL HISTORY: COPD, carotid disease, diastolic CHF, hypothyroidism, hyperlipidemia, hypertensive heart disease, iron deficiency anemia, atrial fibrillation, coronary artery disease, chronic kidney disease stage III-B. PAST SURGICAL HISTORY: Right knee arthroplasty, ORIF of the right patella x2, and then a right AKA, carpal tunnel repair, hysterectomy and a thyroidectomy. FAMILY HISTORY: Heart disease, diabetes, and CVA. SOCIAL HISTORY: She currently resides at [facility]. Denies any tobacco, alcohol or illicit drug use per ER records and previous medical record. ALLERGIES: Penicillin. HOME MEDICATIONS: A current list will need to be obtained, reviewed, reconciled and restarted as appropriate. Will place an order for nursing to update and confirm home medications. LABORATORY DATA: Showed a white blood cell count of 8.67, hemoglobin 7.4, hematocrit 24.9, platelets 259. PT and INR of 28.6 and 2.60. Sodium 137, potassium 5.8, chloride 92, CO2 27, BUN of 59, creatinine 2.1, glucose 119, AST of 1005, ALT 930, alkaline phosphatase was 89. Troponin was less than 0.010. ProBNP of 12,549. X-RAY DATA: Chest x-ray showed severely low lung volumes with evidence of pulmonary edema and possible effusion at the left lung base plus or minus pneumonia. EKG showed a left bundle branch block 97 rate. REVIEW OF SYSTEMS: Unable to obtain from patient. But it is noted per ER records that she was found to be in respiratory distress and hypoxic with O2 saturation in the 60s and 70s at the detention. PHYSICAL EXAMINATION: VITAL SIGNS: On arrival, she had a temperature of 98.4 degrees, pulse 97 per her EKG, blood pressure 116/74. She is now saturating 100% on a non-rebreather. GENERAL: This is a 73-year-old, morbidly obese female, who is lying in the bed, unable to answer any questions, only moans to verbal stimuli. HENT: Normocephalic, atraumatic. Normal ENT inspection. Oropharynx and nares are clear. EYES: Pupils are equal, round, and reactive to light and accommodation. Extraocular movements are intact. NECK: Normal inspection, normal range of motion. LUNGS: With decreased breath sounds bilaterally. Equal lung expansion. Chest wall movement noted. She is currently on a non-rebreather O2. HEART: Regular rate and rhythm. No murmurs, rubs, or gallops. ABDOMEN: Soft, nontender, nondistended. Bowel sounds are present x4 quadrants. MUSCULOSKELETAL: Unable to assess. NEUROLOGICAL: Unable to assess. ASSESSMENT: 1. An acute congestive heart failure exacerbation. 2. An acute respiratory hypoxic failure. 3. Acute kidney injury. 4. Anemia with history of iron deficiency. 5. Hyperkalemia. 6. Elevated liver function tests. PLAN: She will be admitted to our PVC unit, placed on telemetry, O2 per protocol. We are going to get an ABG now, and we are going to check a stool for occult blood, type and screen. Give her Kayexalate 30 g per rectum x1 now. Place an indwelling Smith catheter. We will check an ABG now. We will type and screen and transfuse 1 unit of packed red blood cells. Check iron studies. Apply an SCD for DVT prophylaxis. Place on Lasix 60 mg IV q. 12 hours, Tylenol 650 p.o. q. 6 hours p.r.n., Zofran 4 mg IV q. 4 hours p.r.n., and further orders after seen by attending. We will consider a MUGA scan for Wednesday. Her previous echo that was done 09/22/2018 is that due to her body habitus, they really had a difficult time obtaining and were unable to assess the LV function. So we will consider that at that time. Dictated by LAUREL Alfonso for Sage Pereyra MD cc: LAUREL Alfonso agree with the above. patietn with decompensation and move to ICU as per separate critical care documentation. MTDD
[2019-03-25 10:49] LABS: URINE SOURCE CATH
[2019-03-25 10:58] LABS: BILIRUBIN URINE NEGATIVE (NEGATIVE); BLOOD URINE NEGATIVE (NEGATIVE); COLOR YELLOW; GLUCOSE URINE NEGATIVE (NEGATIVE); KETONE URINE NEGATIVE (NEGATIVE); LEUKOCYTES URINE LARGE (NEGATIVE); NITRITE URINE NEGATIVE (NEGATIVE); PH URINE 5.5; PROTEIN URINE TRACE mg/dL (NEGATIVE); SP GRAVITY URINE 1.012; TURBIDITY URINE HAZY (CLEAR); UROBILINOGEN URINE NORMAL (NORMAL)
[2019-03-25] MEDS: MAXIPIME 2 GM in NS 100 ML IV SCH (11:10)
[2019-03-25 11:52] LABS: UR EPITHELIAL CELLS <10 /HPF (<10); URINE BACTERIA 2+ /HPF; URINE RBC <10 /HPF (<10); URINE WBC TNTC /HPF (<10)
[2019-03-25 11:53] LABS: URINE CASTS NONE SEEN
--- NOTE | 2019-03-25 11:59 | Diag Imaging Result Doc PS360 ---
EXAM: US ABDOMEN-COMPLETE INDICATION: Elevated LFT COMPARISON: Renal ultrasound dated 06/15/2017 FINDINGS: This study is limited due to body habitus and due to the limited mobility of the patient. The gallbladder appears normal with no stones, wall thickening, or pericholecystic fluid. The common bile duct is normal in diameter. Sonographic Porter's sign was reported to be negative. The liver is grossly unremarkable. Portal venous flow is hepatopetal. The pancreas is largely obscured. The small visualized portion is unremarkable. The IVC is obscured. The proximal aorta is obscured. The remainder of the aorta is unremarkable. The spleen is obscured. The left kidney is obscured. The right kidney is unremarkable. IMPRESSION: Significantly limited study for the reasons discussed above. Unremarkable, otherwise. Electronically signed by Vinicius Silva 03/25/2019 11:56 AM
[2019-03-25] MEDS ORDERED: TYLENOL PO PRN (12:13)
[2019-03-25 12:29] LABS: ALLEN TEST YES; BE 7.8 mmoll (-3.0-3.0); BLOOD TYPE ARTERIAL; METHB 1.1 % (0.0-1.5); O2(CT) 10.7 mL/dL (15.0-23.0); PO2(98.6) 171 mmHg (60-100); SAMPLE BLOOD; SAO2 98.9 % (95.0-100.0); SRATE 14 BPM; THB 7.6 g/dL (11.5-17.4); pH(98.6) 7.33 (7.35-7.45)
[2019-03-25] MEDS: VANCOMYCIN 2 GM in NS 500 ML IV SCH (12:30)
[2019-03-25 12:31] LABS: MODALITY BI PAP; PCO2(98.6) 66 mmHg (35-45)
--- NOTE | 2019-03-25 12:54 | CARDIOLOGY CONSULTATION ---
DATE: 03/25/2019 CHIEF COMPLAINT ON PRESENTATION: Apparently the patient was found in respiratory distress by alf staff with O2 saturations in the 60s to 70s, was sent to the ER. Currently, the patient is on non-rebreather, follows minimal intermittent commands. She is very somnolent. HISTORY OF PRESENT ILLNESS: Ms Bustillos is a 73-year-old, morbidly obese, white female who I have seen in clinic previously. She presented for the above mentioned complaints and is not able to provide any history at this time. There was apparently no mention of any symptomatology in the alf as the original ER note noted that the patient had decreased mental status at the alf but after O2 saturation increased to 100%, the patient reported feeling well with no other complaints. Presently, she has an adequate O2 saturation on non-rebreather and does not really reliably respond to commands. She is on BiPAP. PAST MEDICAL HISTORY: Via chart review is significant for: 1. Coronary disease with intervention in [place] previously for multivessel coronary disease. She was not felt to be a candidate for bypass. 2. History of congestive heart failure, thought to be diastolic as well as right-sided in nature. Secondary to her body habitus, she is an extremely difficult patient to image. Her last ejection fractions were felt to be normal based on a study in [place]. 3. Atrial fibrillation. 4. Morbid obesity. 5. Right nsfxr-nby-jlow amputation. 6. Hypertension. 7. Hyperlipidemia. 8. Renal insufficiency. 9. Obstructive sleep apnea as well as obesity hypoventilation. SOCIAL HISTORY: She is apparently a resident of [facility] presently. She does not smoke. FAMILY HISTORY: Unable to be obtained secondary to the patient being unable to answer questions consistently. REVIEW OF SYSTEMS: Unable to be obtained secondary to the patient being unable to answer questions consistently. PHYSICAL EXAMINATION: Vital signs: The patient is afebrile during this hospitalization. Her heart rate presently is in the low 90s to low 100s. Her blood pressure currently is 119/97. She did have some hypotensive bouts with the low systolic of 50. Her O2 saturation is 99% presently. This is on BiPAP. The low documented O2 saturation was 72% this morning at 6:20. Generally: Morbidly obese, no acute distress. Intermittently opens eyes and follows commands. HEENT: Oropharynx is moist. Poor dentition. Eye examination is pink conjunctivae, white sclerae. Neck: Shows no obvious thyromegaly or thyroid tenderness. Cardiovascular: She sounds to be in an irregularly irregular rhythm. She has no obvious murmurs. She has no S3. She has chronic left lower extremity edema and warm and well-perfused extremities. Very distant heart sounds. Chest: Sounds relatively clear but I cannot really hear her breath sounds very well. She is on BiPAP but she has very distant breath sounds. Abdomen: Soft. Bowel sounds are heard. Nontender. No organomegaly but it is a very limited exam. Neurologic: She is opening her eyes. She moves her right and left arm intermittently to commands but otherwise does not really follow commands very well. PERTINENT DATA: Her EKG on presentation appears to be suggestive of atrial fibrillation, rate of 97 beats per minute. She has a left bundle branch block which appears to be chronic and noted back in August 2018. She has a chest x-ray which upon my review really looks to be quite difficult and I would almost say uninterpretable based on difficulty in quality. She does seem to have more infiltrates prominent on the right as well as the left base. Certainly there could be a pneumonia or possible effusion in there. The interpretation by the radiologist showed severely low lung volumes with suggestion of pulmonary edema and a possible effusion at the lung base plus or minus pneumonia. LABORATORY DATA: She has a white count of 8.6, her hematocrit is 24.9 which appears to be chronically in that range. Her platelet count is 259,000. She has a slight left shift. Her INR is 2.6. Her ABG shows a pH of 7.16, pCO2 of 93. Her lactate is 4.1. Her sodium is 137, potassium is 5.8, BUN 59, creatinine is 2.1. Her last creatinine was 1.3 in September of this year. Her AST is 1005, ALT 930. Her cardiac enzymes are negative. Her proBNP was 82830. Her albumin is 3.9. Her urinalysis had too numerous to count WBCs. ASSESSMENT: Ms Bustillos is a 73-year-old, morbidly obese female who has probable diastolic failure, right-sided heart failure, who presents with hypercapnic respiratory failure. PLAN: At this point, she received Lasix a few hours ago. I will recheck an ABG. Her last pCO2 was 93 and that was listed at 9:30 this morning. Since that time, she was put on BiPAP. I would not recommend repeating an echo at this time as the last 2 studies that she had in August were essentially uninterpretable, felt to have a normal ejection fraction but really unable to see much of anything. The patient has been noted to be a DNR 1. At this time, we will follow up on the ABG results and may consider giving another dose of Lasix. cc: Daniel Davis MD
--- NOTE | 2019-03-25 13:06 | HISTORY AND PHYSICAL ---
CRITICAL CARE NOTE/H P ADDENDUM: The patient was brought in from [facility] with respiratory failure. Was noted to be markedly hypoxic here. Initially saturating well on non-rebreather here, but subsequently had a downtrend in oxygen down to the low 90s on non- rebreather. She also had a drop in blood pressure briefly, as low as a systolic of 60. She also had a decrease in mental status. The patient was somewhat somnolent on arrival, but later became more somnolent. ABG obtained showing pH 7.16, pCO2 93, pO2 83, with a sat of 94 on non- rebreather. The patient was placed on BiPAP which did seem to improve oxygenation somewhat, although mental status remained poor. Levophed was ordered but did not have to be started as blood pressure did improve spontaneously. At time of my assessment, the patient's rhythm appears to be in and out of atrial fibrillation intermittently with rapid ventricular response. EKG reviewed. Patient with left bundle-branch block and atrial fibrillation with RVR, but bundle-branch block appears to have been there on previous EKGs. Patient with known history of atrial fibrillation. Asking cardiology for recommendations. Reluctant to give diltiazem with her blood pressure being on the low side. May end up giving amiodarone. Monitor closely. If the patient has further instability in her blood pressure may need cardioversion. She had already received 1 dose of Lasix in the ER. We will see what that does and plan on giving additional Lasix later today. If initial response is poor may give more Lasix sooner rather than later. Patient with marked lower extremity edema on examination, and chest x-ray most consistent with edema in addition to markedly elevated BNP over previous baselines, so strongly suspect that this is heart failure related but cannot entirely rule out pneumonia, so we will go ahead and start the patient on vancomycin and cefepime as well for now. Patient transferring to the ICU. Continue diuresis, initiating antibiotics, placed on BiPAP. We will recheck ABG in an hour. Initial troponin negative, and low suspicion for ACS, but will trend troponins. Suspect acute kidney injury is due to volume overload, but will monitor closely. Transfusing 1 unit of blood. The patient is critically ill. CRITICAL CARE TIME: Forty minutes of critical care time spent immediately available to the patient, examining patient, reviewing labs and imaging, and making medical decisions. addendum: repeat ABG stifll with hypercapnea but markedly improved from previous(90s to 60s). lactate also much improved, down to essentially normal. heart rate also somewhat improved. still encephalopathic. will continue to monitor closely and diurese as tolerated. [facility]
[2019-03-25] MEDS ORDERED: NS 250 ML ONE (13:11)
[2019-03-25 14:51] LABS: IRON SATURATION 8 %; TIBC 389 ug/dL; TOTAL IRON 33 ug/dL (49-151); UNBOUND IRON 356 ug/dL (112-346)
[2019-03-25 15:13] LABS: FERRITIN 141 ng/mL (13-150); FREE T4 1.39 ng/dL (0.93-1.70)
[2019-03-25] MEDS ORDERED: NS 500 ML IV SCH (18:00)
--- NOTE | 2019-03-25 18:11 | EKG Report ---
Test Performed on : 03/25/2019 07:41:25 AM Test Reason : CP Blood Pressure : / mmHG Vent. Rate : 116 BPM Atrial Rate : 111 BPM P-R Int : 000 ms QRS Dur : 168 ms QT Int : 396 ms P-R-T Axes : 000 012 257 degrees QTc Int : 550 ms Atrial fibrillation. with rapid ventricular response. Left bundle branch block Abnormal ECG When compared with ECG of 25-MAR-2019 05:27, (Unconfirmed) Previous ECG has undetermined rhythm, needs review T wave inversion now evident in Inferior leads T wave inversion now evident in Lateral leads Unconfirmed Result
--- NOTE | 2019-03-25 19:17 | Diag Imaging Result Doc PS360 ---
EXAM: CHEST-PORTABLE INDICATION: PICC Line Insertion TECHNIQUE: One view COMPARISON: 03/25/2019 FINDINGS: There is a newly placed PICC line. The tip is difficult to clearly visualize but it appears to be at the atrial caval junction. There is a better inspiratory effort as compared to the previous study. Pulmonary venous congestion and pulmonary edema may have improved slightly. This could be due to better inspiration, however. No new consolidation is identified. Cardiac silhouette is stable. IMPRESSION: Interval placement of right PICC line as described. Better inspiration and possible slight improvement of pulmonary venous congestion and interstitial edema. Electronically signed by Vinicius Silva 03/25/2019 7:15 PM
[2019-03-25] MEDS: LASIX IV SCH (21:09)
[2019-03-26] MEDS: ELIQUIS PO SCH ×4 (01:07→21:34)
[2019-03-26 04:34] LABS: ALLEN TEST YES; BE 8.4 mmoll (-3.0-3.0); BLOOD TYPE ARTERIAL; HCO3-(ACT) 31.5 mmoll (20.0-26.0); PO2(98.6) 90 mmHg (60-100); SAMPLE BLOOD; pH(98.6) 7.41 (7.35-7.45)
[2019-03-26 04:36] LABS: MODALITY BI PAP; PCO2(98.6) 55 mmHg (35-45)
[2019-03-26 05:44] LABS: BASO# 0.01 X1000 (0.0-0.2); BASO% 0.1 % (0.0-0.8); EOS# 0.05 X1000 (0.0-0.7); EOS% 0.6 % (0.0-10.0); HEMATOCRIT 25.5 % (37.0-47.0); HEMOGLOBIN 7.8 g/dL (12.0-16.0); IMM GRAN# 0.02 X1000 (0.0-0.04); IMM GRAN% 0.3 % (0.0-0.5); LYMPH# 0.87 X1000 (1.2-3.4); LYMPH% 10.9 % (20.5-51.1); MCH 27.5 PG (27-31); MCHC 30.6 g/dL (33-37); MCV 89.8 FL (81-99); MONO# 0.75 X1000 (0.11-0.59); MONO% 9.4 % (1.7-9.3); MPV 10.7 FL (7.4-10.4); NEUT# 6.28 X1000 (1.4-6.5); NEUT% 78.7 % (42.2-75.2); PLT 215 X1000 (130-400); RBC 2.84 XMIL (4.2-5.4); RDW 17.9 % (11.5-14.5); WBC 7.98 X1000 (4.8-10.8)
[2019-03-26] MEDS: PROTONIX PO SCH (06:03)
[2019-03-26] MEDS: SYNTHROID PO SCH (06:03)
[2019-03-26 06:27] LABS: ALB/GLOB RATIO 1.1; ALBUMIN 3.6 g/dL (3.5-5.0); CREATININE 2.4 mg/dL (0.5-0.9); POTASSIUM 4.1 mmol/L (3.5-5.1); TOTAL BILIRUBIN 0.56 mg/dL (0.20-1.00); TOTAL PROTEIN 6.8 g/dL (6.3-8.3)
[2019-03-26] MEDS: ZOFRAN IV PRN ×3 (06:45→16:31)
--- NOTE | 2019-03-26 08:10 | Diag Imaging Result Doc PS360 ---
EXAM: CHEST-1 VIEW INDICATION: SOB TECHNIQUE: One view COMPARISON: 03/25/2019 FINDINGS: Right PICC line is in stable position. Pulmonary venous congestion and edema are approximately stable. No new consolidation is identified. Cardiac silhouette is stable. IMPRESSION: Stable chest. Electronically signed by Vinicius Silva 03/26/2019 8:08 AM
[2019-03-26] MEDS: LASIX IV SCH ×2 (08:51→21:26)
[2019-03-26] MEDS: MAXIPIME 2 GM in NS 100 ML IV SCH (09:19)
--- NOTE | 2019-03-26 09:56 | CONSULTATION ---
DATE OF CONSULTATION: 03/26/2019 CHIEF COMPLAINT: Respiratory distress and shortness of breath. HISTORY OF PRESENT ILLNESS: This is a 73-year-old, morbidly obese, female with a past medical history of CHF and COPD. Her O2 saturation was dropping into the 60s and 70s prior to hospital admit. ProBNP was 12,549. She is now on BiPAP device with O2 sat stable at 100%. Chest x-ray reveals severe low lung volumes with evidence of pulmonary edema and possible effusion at the left lung base. PAST MEDICAL HISTORY: COPD, carotid disease, diastolic congestive heart failure, hypothyroidism, hyperlipidemia, hypertension, iron-deficiency anemia, atrial fibrillation, coronary artery disease, chronic kidney disease stage III. PAST SURGICAL HISTORY: Right knee arthroplasty, ORIF of the right patella x2, right AKA, carpal tunnel repair, hysterectomy, and thyroidectomy. FAMILY HISTORY: Diabetes, CVA, and heart disease. SOCIAL HISTORY: Currently resides at [facility]. Denies tobacco, alcohol, or illicit drug use per medical record. ALLERGIES: Penicillin. HOME MEDICATIONS: Please see reconciliation list. REVIEW OF SYSTEMS: Unable to obtain. PHYSICAL EXAMINATION: Vital Signs: Pulse rate 63, respiratory rate 20, blood pressure 125/69, O2 saturation 100% with BiPAP in place. General: This is a 73-year-old female who is morbidly obese. BiPAP in place. HEENT: Head is atraumatic, normocephalic. Pupils equal, round, and reactive to light and accommodation. Neck: Supple. Trachea midline. Lungs: Decreased breath sounds bilaterally. Cardiovascular: Regular rate and rhythm. No murmurs, gallops, or rubs. Abdomen: Soft, nontender, distended. Bowel sounds present in all 4 quadrants. Neurologic: She is responding with eye movement. She can move her arms intermittently to commands, but does not follow commands very well. LABORATORY DATA: White blood cells 7.98, red blood cells 2.84, hemoglobin 7.8, hematocrit 25.5. PH 7.41, pCO2 of 55, PO2 of 90, HCO3 of 31, base excess 8.4. Sodium 130, potassium 4.1, chloride 88, carbon dioxide 30, BUN 61, creatinine 2.4. AST 740, ALT 1072. DIAGNOSTIC DATA: Chest x-ray on 03/25/2019, impression revealed better inspiration, and possible slight improvement of pulmonary venous congestion and interstitial edema. ASSESSMENT AND PLAN: 1. Congestive heart failure exacerbation. She is on Lasix 60 mg twice daily. 2. Acute respiratory hypoxic failure. Will continue to monitor with ABGs. Continue bilevel positive airway pressure use and supplemental oxygen. 3. Acute kidney injury. Will continue to monitor. 4. Iron-deficiency anemia. Will monitor. 5. Elevated liver enzymes. 6. Continue deep venous thrombosis and gastrointestinal prophylaxis. Thank you for the courtesy of this consult. Dictated by LAUREL Cee for Claudia Allen MD cc: LAUREL Cee MD [facility]
[2019-03-26] MEDS: PLAVIX PO SCH (10:10)
--- NOTE | 2019-03-26 12:55 | PROGRESS NOTE ---
DATE: 03/26/2019 SUBJECTIVE: Ms. Bustillos is awake and alert. OBJECTIVE: Vital signs: Temp 97.3 degrees, pulse 72, respirations 16, blood pressure 130/77. HEENT: Pupils are equal. Neck: No distended neck veins. Lungs: Lungs are clear in all lung boyd. Cardiovascular: Regular rhythm and rate without murmur or S3. Urine output was about 4 L. DIAGNOSTIC DATA: Her chest x-ray was stable chest, PICC line in stable position. Pulmonary venous congestion and edema are approximately stable. No new consolidation. Cardiac silhouette is stable. ASSESSMENT AND PLAN: 1. Congestive heart failure, getting Lasix 60 mg IV twice a day. 2. Acute respiratory hypoxic failure. We will continue to monitor blood gases, air and gas exchange. Continue supplemental O2. 3. Acute kidney injury. 4. Iron deficiency anemia. 5. Elevated liver enzymes. 6. Continue deep venous thrombosis and gastrointestinal prophylaxis. 7. Review of orders: Eliquis 5 mg b.i.d., Plavix 75 mg a day. Note, we are holding those, I believe, and Lasix 60 mg IV twice a day, Synthroid 75 mcg a day, vancomycin 2 g IV q.48 hours. She was admitted, and there was a question of whether she could have some GI bleeding, so I think we are holding the Plavix and Eliquis at this time. LABORATORY DATA: Most recent labs today, white count 7980, hematocrit 25, hemoglobin 7.1, platelet count 215,000. Sodium 130, potassium 4.1, chloride 88, BUN is 61, creatinine 2.4. Creatinine has gone up a little bit. cc: Kareem Knight MD
[2019-03-26] MEDS ORDERED: SAMSCA PO ONE (13:53)
--- NOTE | 2019-03-26 15:31 | CARDIOLOGY PROGRESS NOTE ---
DATE: 03/26/2019 SUBJECTIVE: Ms. Bustillos is more alert today. She continues on BiPAP. She has had intermittent episodes on the Ventimask and apparently had an episode of bradycardia occurring while she was blowing her nose. OBJECTIVE: Vital signs: She is afebrile, heart rate is 74. Her blood pressure most recently was 145/72. Her systolics have been anywhere from around 90 to up in the mid 140s. Her I's and O's have been negative in the order of around a liter. General: She is in no acute distress, on BiPAP. Cardiovascular: Distant, regular. No obvious murmurs. She has warm and well perfused left lower extremity. Chest: Very distant. She has no increased work of breathing. Abdomen: Soft, nontender. PERTINENT DATA: Her chest x-ray suggests stable pulmonary venous congestion. Her lab data shows a white count of 7.9, hematocrit 25, platelet count is 215,000. Her ABG today shows a pH of 7.4, pCO2 of 55. Her sodium is 130, potassium 4.1, BUN 61, creatinine 2.4. Her AST and ALT are 740 and 1072, respectively. ASSESSMENT: Ms. Bustillos is a 73-year-old female who presented with hypercapnic/hypoxic respiratory failure with evidence of volume overload. PLAN: I will give her a dose of Samsca today. Continue her on the current doses of furosemide. She is on BiPAP. Laboratories to be checked in the morning. cc: Daniel Davis MD
[2019-03-27] MEDS ORDERED: TUMS EXTRA STRENGTH PO ONE (00:05)
[2019-03-27 05:25] LABS: ALLEN TEST YES; BE 12.7 mmoll (-3.0-3.0); BLOOD TYPE ARTERIAL; HCO3-(ACT) 34.8 mmoll (20.0-26.0); METHB 1.5 % (0.0-1.5); O2(CT) 11.8 mL/dL (15.0-23.0); O2HB 95.1 % (95.0-99.0); PCO2(98.6) 38 mmHg (35-45); PO2(98.6) 92 mmHg (60-100); SAMPLE BLOOD; SAO2 98.2 % (95.0-100.0); THB 8.7 g/dL (11.5-17.4)
[2019-03-27 05:26] LABS: MODALITY BI PAP
[2019-03-27 05:27] LABS: pH(98.6) 7.58 (7.35-7.45)
[2019-03-27] MEDS: PROTONIX PO SCH (06:12)
[2019-03-27] MEDS: SYNTHROID PO SCH (06:12)
[2019-03-27 06:28] LABS: BASO# 0.01 X1000 (0.0-0.2); BASO% 0.1 % (0.0-0.8); EOS# 0.06 X1000 (0.0-0.7); EOS% 0.7 % (0.0-10.0); HEMATOCRIT 27.1 % (37.0-47.0); HEMOGLOBIN 8.1 g/dL (12.0-16.0); IMM GRAN# 0.02 X1000 (0.0-0.04); IMM GRAN% 0.2 % (0.0-0.5); LYMPH# 1.02 X1000 (1.2-3.4); LYMPH% 11.7 % (20.5-51.1); MCH 27.4 PG (27-31); MCHC 29.9 g/dL (33-37); MCV 91.6 FL (81-99); MONO# 0.94 X1000 (0.11-0.59); MONO% 10.8 % (1.7-9.3); MPV 10.6 FL (7.4-10.4); NEUT# 6.65 X1000 (1.4-6.5); NEUT% 76.5 % (42.2-75.2); PLT 225 X1000 (130-400); RBC 2.96 XMIL (4.2-5.4); RDW 17.8 % (11.5-14.5)
[2019-03-27 06:47] LABS: ALB/GLOB RATIO 1.1; ALBUMIN 3.5 g/dL (3.5-5.0); CALCIUM 9.4 mg/dL (8.8-10.2); CREATININE 1.9 mg/dL (0.5-0.9); MAGNESIUM 2.4 mg/dL (1.5-2.7); POTASSIUM 3.6 mmol/L (3.5-5.1); TOTAL BILIRUBIN 0.46 mg/dL (0.20-1.00); TOTAL PROTEIN 6.8 g/dL (6.3-8.3)
--- NOTE | 2019-03-27 08:08 | Diag Imaging Result Doc PS360 ---
EXAM: CHEST-1 VIEW INDICATION: SOB TECHNIQUE: One view COMPARISON: 03/26/2019 FINDINGS: The right PICC line is in stable position. Lung volumes remain low similar to the previous study. Given differences in positioning, pulmonary venous congestion and interstitial edema is approximately stable. There is stable cardiomegaly. IMPRESSION: Grossly stable chest. Electronically signed by Vinicius Silva 03/27/2019 8:06 AM
[2019-03-27] MEDS: MAXIPIME 2 GM in NS 100 ML IV SCH (08:32)
[2019-03-27] MEDS: ELIQUIS PO SCH ×2 (09:08→21:12)
[2019-03-27] MEDS: PLAVIX PO SCH (09:08)
[2019-03-27] MEDS: LASIX IV SCH ×2 (09:13→21:18)
--- NOTE | 2019-03-27 09:55 | CONSULTATION ---
DATE OF CONSULTATION: 03/25/2019 INCOMPLETE REPORT-- DICTATION STARTS HERE PLEASE DO NOT DICTATE USING ANOTHER PROVIDERS DICTATION ID. YOUR DICTATION ID IS [id number]. Cardiovascular: Regular rate and rhythm. No murmurs, rubs or gallops. Abdomen: Soft, nontender, nondistended. Bowel sounds present in all 4 quadrants. ASSESSMENT AND PLAN: 1. Acute congestive heart failure exacerbation. 2. Acute respiratory hypoxic failure. 3. Acute kidney injury. 4. Anemia. Continue BiPAP and O2 per protocol. Will continue to monitor ABGs and chest x-rays. Continue antibiotics as ordered. Continue gastrointestinal prophylaxis and deep vein thrombosis prophylaxis. Thank you for the courtesy of this consult. Dictated by LAUREL Cee for Claudia Allen MD cc: LAUREL Cee MD
[2019-03-27] MEDS ORDERED: DIAMOX IV ONE (11:41)
--- NOTE | 2019-03-27 12:05 | PROGRESS NOTE ---
DATE: 03/27/2019 SUBJECTIVE: Ms. Bustillos says she is doing better, breathing better, more comfortable. OBJECTIVE: Vital signs: Temperature 97.2 degrees, pulse 76, respirations 20, blood pressure 135/57. HEENT: Pupils are equal and round. Lungs: Clear in all lung boyd. Cardiovascular: Regular rhythm and rate without murmur or S3. She had a couple episodes of bradycardia that appeared remains in atrial fibrillation and then slowed down. The rate got as low as 20. Urine output was 9 L. Looking over her medications, I do not see anything to change at this point. ASSESSMENT AND PLAN: 1. Congestive heart failure, still diuresing. Getting Lasix 60 mg IV twice a day. 2. Acute respiratory hypoxic failure. Continue to monitor her blood gases and continue supplemental O2. 3. Acute kidney injury, improving. 4. Iron deficiency anemia. 5. Elevated liver enzymes, which are improving. 6. Continue deep venous thrombosis and gastrointestinal prophylaxis. 7. Obesity. 8. I do not see any change in her orders. Hematocrit and hemoglobin stable. cc: Kareem Knight MD
[2019-03-27] MEDS: ZOFRAN IV PRN (12:22)
[2019-03-27] MEDS: VANCOMYCIN 2 GM in NS 500 ML IV SCH (12:22)
--- NOTE | 2019-03-27 12:32 | CARDIOLOGY PROGRESS NOTE ---
DATE: 03/27/2019 SUBJECTIVE: Ms. Bustillos seems to feel little bit better today. Her breathing is little bit more stable. She is on a non-rebreather presently. OBJECTIVE: Vital signs: She is afebrile, heart rate of 69, blood pressure 147/92. Her I's and O's yesterday were significantly negative at the order of 3.1 L. This is likely secondary to the Samsca. General: No acute distress. Cardiovascular: She sounds to be in a regular rate and rhythm. She has no murmurs, no S3. Chest: Exam is very distant but relatively clear. No increased work of breathing. Abdomen: Soft, nontender. PERTINENT DATA: White count 8.7, hematocrit 27, platelet count 225,000. Her ABG shows a pH of 7.58, pCO2 of 38. Her sodium is 146, potassium 3.6, BUN is 57, creatinine is 1.9. ProBNP today is 6627. Her liver enzymes continue to be quite elevated but are improved. ASSESSMENT: Ms. Bustillos is a 73-year-old female who presented with combined hypercapnic/hypoxic respiratory failure with congestive heart failure. PLAN: I would continue her current diuretic dose today. Her sodium is a little bit elevated. We will continue her on her current medications. Her chest x-ray does not look much better but looks no worse. No new recommendations at this time. cc: Daniel Davis MD
[2019-03-27] MEDS ORDERED: STERILE WATER INJ. ONE (12:41)
--- NOTE | 2019-03-27 13:08 | PULMONOLOGY PROGRESS NOTE ---
DATE: 03/27/2019 SUBJECTIVE: The patient is awake, alert, and conversant. She reports that her breathing has somewhat improved. OBJECTIVE: Vital Signs: Intake 2000 mL, output 5100 mL. BP 129/70, heart rate 82, respiratory rate 23 to 35, oxygen saturation 97%. HEENT: Pupils are equal and reactive. Oropharynx appears clear. Neck: Supple. Chest: Shallow breath sounds bilaterally. Cardiac: Distant heart sounds. Normal S1, normal S2. Abdomen: Obese and soft. Extremities: There is 1+ peripheral edema. IMAGING AND LABORATORY DATA: Chest x-ray reveals cardiomegaly, shallow inspiration, pulmonary venous congestion, and pulmonary edema. Electrolytes: Sodium 146, potassium 3.6, chloride 98, bicarbonate 33, BUN 57, creatinine 1.9. ProBNP is 6627. Arterial blood gas reveals a pH of 7.58, pCO2 of 38, PO2 of 92. IMPRESSION: A 73-year-old with morbid obesity, acute cor pulmonale, fluid overload with pulmonary edema, acute hypoxemic and acute hypercapnic respiratory failure, acute renal insufficiency. PLAN: 1. Continue to cycle BiPAP and Ventimask as tolerated. 2. Continue diuretics as tolerated. Currently, her kidney function is actually improved with diuresis. 3. Will give a single dose of Diamox today in anticipation of ongoing diuresis. 4. Long-term, the patient would benefit from weight loss, but this will be difficult given her mobility status. cc: Rhys Caputo MD
[2019-03-28 04:39] LABS: BLOOD TYPE ARTERIAL; SAMPLE BLOOD
[2019-03-28 04:40] LABS: ALLEN TEST YES; BE 15.2 mmoll (-3.0-3.0); HCO3-(ACT) 36.8 mmoll (20.0-26.0); METHB 0.3 % (0.0-1.5); O2(CT) 11.2 mL/dL (15.0-23.0); O2HB 93.9 % (95.0-99.0); PO2(98.6) 65 mmHg (60-100); SAO2 99.3 % (95.0-100.0); THB 8.4 g/dL (11.5-17.4); pH(98.6) 7.41 (7.35-7.45)
[2019-03-28 04:43] LABS: MODALITY VENTIMASK; PCO2(98.6) 66 mmHg (35-45)
[2019-03-28] MEDS: SYNTHROID PO SCH (05:59)
[2019-03-28] MEDS: PROTONIX PO SCH (05:59)
--- NOTE | 2019-03-28 07:20 | Diag Imaging Result Doc PS360 ---
EXAM: CHEST-1 VIEW 03/28/2019 HISTORY: SOB TECHNIQUE: AP portable at 0535 COMMENT: There is a PICC line on the right with its tip in the right atrium. There is a left pleural effusion. There is atelectasis or pneumonia in the lingula and left lower lobe. There is probable interstitial pulmonary edema. IMPRESSION: Cardiomegaly and pulmonary edema. Left lower lobe atelectasis versus pneumonia. Electronically signed by Shayne Wilcox 03/28/2019 7:18 AM
[2019-03-28] MEDS: MAXIPIME 2 GM in NS 100 ML IV SCH (09:02)
[2019-03-28] MEDS: LASIX IV SCH ×2 (09:02→20:33)
[2019-03-28] MEDS: PLAVIX PO SCH (09:03)
[2019-03-28] MEDS: ELIQUIS PO SCH ×2 (09:03→20:34)
--- NOTE | 2019-03-28 09:57 | PROGRESS NOTE ---
DATE: 03/28/2019 SUBJECTIVE: The patient is awake and alert. The patient is using a BiPAP mask upon my examination. According to nursing staff, her heart rate has been going up and down sometimes. She becomes bradycardic in the range of 30s. No other issues noted. OBJECTIVE: Vital Signs: Temperature 97.9, heart rate 69, respiratory rate 18, blood pressure 127/92, O2 saturation 94% on BiPAP. General Examination.: This is a chronically ill-appearing, extremely morbidly obese, 73-year-old female lying in bed in no acute distress. HEENT: Head is normocephalic, atraumatic. Pupils equal, round, reactive to light and accommodation. Neck: No JVD noted. No carotid bruits. No lymphadenopathy. No thyromegaly. Cardiovascular exam: S1, S2 heard. Distant. No murmurs, gallops, or rubs. Regular rate and rhythm. Respiratory exam: Decreased breath sounds globally, mostly because of body habitus. The patient is not using any accessory muscles or having work of breathing. Abdomen: Soft, obese, nondistended. Bowel sounds present. No organomegaly. Extremities: Right [id number] amputation. In the left lower extremity, there is 1+ pedal edema with signs of chronic venous insufficiency. Neurological exam: Patient is alert and oriented x3. Moves 4 extremities. LABORATORY DATA: There is no labs from today, except ABG that shows pH 7.41 pCO2 66, PO2 65. ASSESSMENT AND PLAN: 1. Acute hypoxemic and hypercapnic respiratory failure, multifactorial secondary to congestive heart failure. The patient was started on BiPAP and Ventimask as tolerated, but he is on BiPAP this morning because his CO2 is elevated at 66. At this point, we will continue to monitor this patient closely. Pulmonary following this patient. 2. Congestive heart failure. We will continue with Lasix 60 mg intravenous every 12 hours. On checking his ins and outs, the patient has made so far 4.5 liters of urine, and her balance is - 2.2. At this point, we will continue with the same medications. 3. Acute kidney injury at least for creatinine from the last 3 days. Creatinine was improving. Labs from today are pending. 4. Transaminitis. At presentation AST and ALT was in the range of the thousands. I do not know if that was secondary to hepatitis or ischemic hepatitis. In any case, we will continue to monitor comprehensive metabolic panel. We are going to check INR to complete the evaluation for liver function. 5. Iron deficiency anemia. Apparently, there was a report of possible black stools. The patient is on Eliquis and Plavix, which were held for the last 3 days. I did not see any major drop in hemoglobin. She did receive 1 unit of blood 3 days ago. As we mentioned before, we are still waiting for results of complete blood count. Will transfuse if needed. 6. Disposition: Considering all his comorbidities, I prefer to keep this patient in the intensive care unit for better monitoring. cc: Darell Granados MD
[2019-03-28 10:26] LABS: BASO# 0.02 X1000 (0.0-0.2); BASO% 0.2 % (0.0-0.8); EOS# 0.06 X1000 (0.0-0.7); EOS% 0.5 % (0.0-10.0); HEMATOCRIT 31.1 % (37.0-47.0); HEMOGLOBIN 9.2 g/dL (12.0-16.0); IMM GRAN# 0.03 X1000 (0.0-0.04); IMM GRAN% 0.3 % (0.0-0.5); LYMPH# 0.93 X1000 (1.2-3.4); MCH 27.4 PG (27-31); MCHC 29.6 g/dL (33-37); MCV 92.6 FL (81-99); MONO# 0.96 X1000 (0.11-0.59); MONO% 8.2 % (1.7-9.3); MPV 10.1 FL (7.4-10.4); NEUT# 9.66 X1000 (1.4-6.5); NEUT% 82.8 % (42.2-75.2); PLT 258 X1000 (130-400); RBC 3.36 XMIL (4.2-5.4); RDW 17.3 % (11.5-14.5); WBC 11.66 X1000 (4.8-10.8)
[2019-03-28 10:51] LABS: ALBUMIN 3.5 g/dL (3.5-5.0); CALCIUM 9.5 mg/dL (8.8-10.2); CREATININE 1.5 mg/dL (0.5-0.9); POTASSIUM 3.7 mmol/L (3.5-5.1); TOTAL BILIRUBIN 0.49 mg/dL (0.20-1.00); TOTAL PROTEIN 6.9 g/dL (6.3-8.3)
[2019-03-28] MEDS ORDERED: MILK OF MAGNESIA PO PRN (12:57)
--- NOTE | 2019-03-28 14:19 | CARDIOLOGY PROGRESS NOTE ---
DATE: 03/28/2019 SUBJECTIVE: Ms. Bustillos reports she feels better today. Her breathing has improved. PHYSICAL EXAMINATION: Vital Signs: She is afebrile. Heart rate 78, blood pressure 150/67. Her I's and O's continue to be negative. She has a total negative output of 6 L with 2 voids not measured. General: She is in no acute distress. Cardiovascular: She sounds to be in a regular rate and rhythm. Presently, she has no murmur. She has very distant heart sounds. Respiratory: Chest sounds clear. No increased work of breathing. She is on a face mask. Again very distant breath sounds. Gastrointestinal: Her abdomen is soft, nontender, nondistended. PERTINENT DATA: [facility] her white count is 11.6, hematocrit 31, platelet count is 258,000. Her sodium is 144, potassium 3.7, her BUN is 45 with a creatinine 1.5. ASSESSMENT: Ms. Bustillos is a 73-year-old female who presents with diastolic failure, right-sided failure and hypoxic respiratory failure. PLAN: She continues diuresed. Her blood pressure has risen significantly. I will restart her amlodipine as well as her carvedilol. I have reduced her carvedilol dosage to 6.25 b.i.d. in the interest of just re-initiation. Laboratories have been ordered for the morning, including a proBNP and a chemistry. cc: Daniel Davis MD
[2019-03-28] MEDS ORDERED: VANCOMYCIN 2 GM in NS 500 ML IV SCH (18:00)
[2019-03-28] MEDS: MORPHINE IV PRN (19:42)
[2019-03-28] MEDS: COREG PO SCH (20:33)
[2019-03-29] MEDS: MORPHINE IV PRN ×5 (01:21→22:34)
[2019-03-29 04:44] LABS: ALLEN TEST YES; BLOOD TYPE ARTERIAL; METHB 1.3 % (0.0-1.5); O2(CT) 15.4 mL/dL (15.0-23.0); O2HB 95.4 % (95.0-99.0); PO2(98.6) 122 mmHg (60-100); SAMPLE BLOOD; SAO2 98.4 % (95.0-100.0); THB 11.3 g/dL (11.5-17.4)
[2019-03-29 04:45] LABS: MODALITY VENTIMASK; PCO2(98.6) 65 mmHg (35-45)
[2019-03-29 05:30] LABS: BASO# 0.02 X1000 (0.0-0.2); BASO% 0.2 % (0.0-0.8); EOS# 0.12 X1000 (0.0-0.7); HEMATOCRIT 30.1 % (37.0-47.0); HEMOGLOBIN 8.8 g/dL (12.0-16.0); IMM GRAN# 0.02 X1000 (0.0-0.04); IMM GRAN% 0.2 % (0.0-0.5); LYMPH# 1.25 X1000 (1.2-3.4); LYMPH% 10.1 % (20.5-51.1); MCH 27.1 PG (27-31); MCHC 29.2 g/dL (33-37); MCV 92.6 FL (81-99); MONO# 1.42 X1000 (0.11-0.59); MONO% 11.5 % (1.7-9.3); MPV 9.8 FL (7.4-10.4); NEUT# 9.53 X1000 (1.4-6.5); PLT 238 X1000 (130-400); RBC 3.25 XMIL (4.2-5.4); WBC 12.36 X1000 (4.8-10.8)
[2019-03-29 05:43] LABS: INR 1.32; PROTIME 16.6 Seconds (11.0-16.0)
[2019-03-29 05:49] LABS: ALBUMIN 3.4 g/dL (3.5-5.0); CALCIUM 9.2 mg/dL (8.8-10.2); CREATININE 1.3 mg/dL (0.5-0.9); POTASSIUM 3.5 mmol/L (3.5-5.1); TOTAL BILIRUBIN 0.46 mg/dL (0.20-1.00); TOTAL PROTEIN 6.7 g/dL (6.3-8.3)
[2019-03-29] MEDS: PROTONIX PO SCH ×2 (05:49→06:08)
[2019-03-29] MEDS: SYNTHROID PO SCH ×2 (05:49→06:13)
--- NOTE | 2019-03-29 06:49 | Diag Imaging Result Doc PS360 ---
CHEST-1 VIEW - 03/29/2019 INDICATION: SOB COMPARISON: 03/28/2019 FINDINGS: Stable right PICC line. There is worsening pulmonary vascular congestion and pulmonary edema. There is a moderate left pleural effusion. There is worsening cardiomegaly. IMPRESSION: Worsening from prior. Electronically signed by Marquis Parsons 03/29/2019 6:47 AM
[2019-03-29] MEDS: ELIQUIS PO SCH ×2 (08:44→20:56)
[2019-03-29] MEDS: PLAVIX PO SCH (08:45)
--- NOTE | 2019-03-29 08:59 | PROGRESS NOTE ---
DATE: 03/29/2019 SUBJECTIVE: The patient continues to be awake, alert. She is using Ventimask upon my examination and she has been on high-flow nasal cannula before. She reports feeling a little bit short of breath, but overall she is feeling much better. OBJECTIVE: Vital Signs: Temperature 98.1 degrees, heart rate 84, respiratory 21, blood pressure 117/55, O2 saturation 98% on Venturi mask. General: This is a chronically ill appearing and extremity morbidly obese 73-year-old female lying in bed, in no acute distress. Cardiovascular: S1, S2 heard, distant. No murmurs, gallops, or rubs noted. Regular rate and rhythm. Respiratory: Decreased breath sounds globally mostly because of body habitus. I do not hear any crackles or rhonchi. The patient is not using any accessory muscles or having work of breathing. Abdomen: Soft. Obese. Nontender to palpation. Bowel sounds present. No organomegaly. Extremities: Right [id number] amputation. In the lower extremities 1 to 2+ pitting edema with signs of chronic venous insufficiency. Neurological: Patient alert and oriented x3. Moves 4 extremities. LABORATORY DATA: White cell count 12.36, hemoglobin 8.9, hematocrit 30.1, platelets 238,000. ABG that shows pH 7.4, with pCO2 65, PO2 122. BMP reveals creatinine 1.3, AST 55, ALT 311. ProBNP is 4181. ASSESSMENT AND PLAN: 1. Acute hypoxemic hypercapnic respiratory failure. That condition is multifactorial. It is secondary to congestive heart failure, but there should be also a component of obesity hypoventilation syndrome. In any case patient is requiring Ventimask. She requires BiPAP at night and the CO2 is still elevated. At this point, will continue with same management. Pulmonary is also following this patient. 2. Congestive heart failure. So far, this patient is making good urine. She is receiving 60 mg of Lasix q.12 hours. Her BMP is decreasing. At this point, Cardiology has decided to restart amlodipine and Coreg. Will continue to monitor this patient closely. 3. Acute kidney injury. Creatinine continues to improve, today is 1.3. Will continue to monitor BMP. 4. Transaminitis. AST and ALT are getting definitely better and are almost back to normal. Will continue to monitor. INR is 1.32. 5. Iron-deficiency anemia. As we mentioned in our previous notes, there was a report for possible black stools a few days ago. Since then Eliquis and Plavix have been held. On checking her hemoglobin levels, hemoglobin has been a little bit down and up. I think because of borderline hemoglobin will continue to monitor and keep holding those medications. DISPOSITION: I think this patient is getting better, so at this point we can transfer her to [facility]. cc: Darell Granados MD MTD
[2019-03-29] MEDS: MAXIPIME 2 GM in NS 100 ML IV SCH (09:00)
[2019-03-29] MEDS: MIRALAX PO SCH ×2 (09:00→20:17)
[2019-03-29] MEDS: COREG PO SCH ×2 (09:00→20:17)
[2019-03-29] MEDS: NORVASC PO SCH (09:00)
[2019-03-29] MEDS: COLACE PO SCH ×2 (09:00→20:17)
[2019-03-29] MEDS: LASIX IV SCH ×2 (09:01→20:17)
--- NOTE | 2019-03-30 02:32 | CARDIOLOGY PROGRESS NOTE ---
DATE: 03/29/2019 SUBJECTIVE: Ms. Bustillos seems to clinically improve daily. She reports her breathing is doing better and she is on a lower amount of oxygen today. OBJECTIVE: Vital Signs: She is afebrile. Her heart rate has been predominantly in the 70s to 80s. Her blood pressure is 142/52. General: She is in no acute distress. Cardiovascular: She sounds to be in a irregularly irregular rhythm. She has no murmurs. She has no S3. Warm perfused left lower extremity. Lungs: Her chest exam is distant and sounds relatively clear. No increased work of breathing. PERTINENT DATA: White count 12.3, hematocrit 30, platelet count is 238,000. Sodium is 143, potassium is 3.5, BUN 38, creatinine is 1.3. Her AST and ALT continue to decrease, her proBNP is 4181, which is down from 12,549. ASSESSMENT: Ms. Bustillos is a 73-year-old female who presented with respiratory failure, congestive heart failure and atrial fibrillation. PLAN: She seems to be improving clinically. She is on a lower O2 concentration as she is on nasal cannula now, she seems to be tolerating this well. Her proBNP is improved. Overall she appears to be diuresing even though her chest x-ray seems to suggest a worsening. I would not change her diuretic regimen presently. She continues on amlodipine and carvedilol at 6.25 b.i.d. We started reinitiating some of her medicines yesterday, her blood pressure seems to be doing reasonably well over the last several checks. cc: Daniel Davis MD
[2019-03-30 05:02] LABS: ALLEN TEST YES; BE 12.8 mmoll (-3.0-3.0); BLOOD TYPE ARTERIAL; HCO3-(ACT) 34.9 mmoll (20.0-26.0); METHB 1.2 % (0.0-1.5); O2(CT) 14.2 mL/dL (15.0-23.0); O2HB 95.5 % (95.0-99.0); PO2(98.6) 114 mmHg (60-100); SAMPLE BLOOD; SAO2 98.3 % (95.0-100.0); THB 10.4 g/dL (11.5-17.4); pH(98.6) 7.38 (7.35-7.45)
[2019-03-30 05:03] LABS: PCO2(98.6) 68 mmHg (35-45)
[2019-03-30 05:04] LABS: MODALITY CANNULA
[2019-03-30] MEDS: MORPHINE IV PRN ×4 (06:12→21:52)
[2019-03-30] MEDS: SYNTHROID PO SCH (06:12)
[2019-03-30] MEDS: PROTONIX PO SCH (06:12)
[2019-03-30 06:19] LABS: BASO# 0.02 X1000 (0.0-0.2); BASO% 0.1 % (0.0-0.8); EOS# 0.09 X1000 (0.0-0.7); EOS% 0.6 % (0.0-10.0); HEMATOCRIT 28.9 % (37.0-47.0); HEMOGLOBIN 8.4 g/dL (12.0-16.0); IMM GRAN# 0.05 X1000 (0.0-0.04); IMM GRAN% 0.4 % (0.0-0.5); LYMPH# 1.36 X1000 (1.2-3.4); LYMPH% 9.6 % (20.5-51.1); MCH 26.8 PG (27-31); MCHC 29.1 g/dL (33-37); MCV 92.3 FL (81-99); MONO# 1.86 X1000 (0.11-0.59); MONO% 13.2 % (1.7-9.3); MPV 9.7 FL (7.4-10.4); NEUT# 10.76 X1000 (1.4-6.5); NEUT% 76.1 % (42.2-75.2); PLT 210 X1000 (130-400); RBC 3.13 XMIL (4.2-5.4); RDW 16.4 % (11.5-14.5); WBC 14.14 X1000 (4.8-10.8)
[2019-03-30 06:25] LABS: INR 1.26
[2019-03-30 06:43] LABS: ALBUMIN 3.2 g/dL (3.5-5.0); CREATININE 1.1 mg/dL (0.5-0.9); POTASSIUM 3.7 mmol/L (3.5-5.1); TOTAL BILIRUBIN 0.45 mg/dL (0.20-1.00); TOTAL PROTEIN 6.5 g/dL (6.3-8.3)
--- NOTE | 2019-03-30 06:50 | PROVIDER PROGRESS NOTE ---
Progress Note Pulmonary additional note. We discussed Bipap compliance and discomfort with patient. We ordered High flow cannula but resp. department is short in supplies on those. Will discuss more with staff and patient.
--- NOTE | 2019-03-30 07:22 | Diag Imaging Result Doc PS360 ---
EXAM: CHEST-1 VIEW INDICATION: SOB TECHNIQUE: One view COMPARISON: 03/29/2019 FINDINGS: The right PICC line is in stable position. Inspiration is suboptimal similar to the previous study. Edema and pulmonary venous congestion is approximately stable as compared to the previous study. No new consolidation is identified. There is stable cardiomegaly. IMPRESSION: Stable chest. Electronically signed by Vinicius Silva 03/30/2019 7:20 AM
[2019-03-30] MEDS ORDERED: STERILE WATER INJ. INJ ONE (07:57)
[2019-03-30] MEDS ORDERED: CATHFLO IV ONE (07:57)
[2019-03-30] MEDS: LASIX IV SCH ×2 (08:18→21:53)
[2019-03-30] MEDS: MIRALAX PO SCH ×2 (08:24→23:01)
[2019-03-30] MEDS: COREG PO SCH ×2 (08:24→23:01)
[2019-03-30] MEDS: NORVASC PO SCH (08:24)
[2019-03-30] MEDS: COLACE PO SCH ×2 (08:24→23:00)
[2019-03-30] MEDS: MAXIPIME 2 GM in NS 100 ML IV SCH (08:24)
[2019-03-30] MEDS: ELIQUIS PO SCH ×2 (08:35→21:54)
[2019-03-30] MEDS: PLAVIX PO SCH (08:36)
--- NOTE | 2019-03-30 10:17 | PROGRESS NOTE ---
DATE: 03/30/2019 SUBJECTIVE: The patient is awake, alert. The patient is complaining of some back pain and also neck pain this morning. She was using Ventimask last night. She was not using BiPAP because she feels very uncomfortable. Pulmonary has recommended to use high-flow nasal cannula, but apparently we do not have any of those devices here in the hospital. OBJECTIVE: Vital Signs: Temperature 96.8 degrees, heart rate 77, respiratory rate 20, blood pressure 141/66, O2 saturation 95% on 5 L nasal cannula. This is a chronically ill appearing on exam, morbidly obese 73-year-old female lying in bed, in no acute distress. Cardiovascular: S1, S2 heard, distant. No murmurs, gallops or rubs noted. Regular rate and rhythm. Respiratory: Decreased breath sounds globally mostly because of body habitus, but I do not hear any crackles or rhonchi today. The patient is not using any accessory muscles or having work of breathing. Abdomen: Soft. Obese. Nontender to palpation. Bowel sounds present. No organomegaly. Extremities: Right [id number] amputation. The left lower extremity 1 to 2+ pedal edema with signs of severe chronic venous insufficiency. Neurological: Patient is awake, alert, moves 4 extremities. LABORATORY DATA: White cell count 14.1, hemoglobin 8.4, hematocrit 28.9 platelets 210,000. ABG shows pH 7.30 with pCO2 of 68, PO2 114. Creatinine 1.1. ASSESSMENT AND PLAN: 1. Acute hypoxemic and hypercapnic respiratory failure. As we mentioned before, this condition is multifactorial, that is secondary to congestive heart failure and also there is usually a component of obesity hyperventilation syndrome. The patient has been refusing BiPAP for the last 2 nights and her CO2 is in the range of high 60s. I think at this point we have to restart BiPAP. Pulmonary is following this patient, will follow recommendations. 2. Acute congestive heart failure. From this standpoint the patient is getting better. She is making more urine. She continues to receive 60 mg of Lasix q.12 hours. Her urine output is getting better. Cardiology is following this patient. Amlodipine and Coreg have been restarted. Will continue to monitor this patient closely. 3. Acute kidney injury. Creatinine is almost back to normal, today is 1.1. Will continue to monitor BMP. 4. Transaminitis. Although at admission were in the range of almost 1000, now is back to normal. INR is okay, so I think this patient is getting much better. 5. Iron deficiency anemia. Aware. Eliquis and Plavix have been held. At this point, will continue to monitor CBC. 6. Disposition. I think this patient is getting better slowly, so I think we will continue to wait for a bed for PVC to transfer her. cc: Darell Granados MD MTDD
[2019-03-31 04:51] LABS: ALLEN TEST YES; BLOOD TYPE ARTERIAL; HCO3-(ACT) 36.7 mmoll (20.0-26.0); METHB 0.3 % (0.0-1.5); O2(CT) 11.7 mL/dL (15.0-23.0); O2HB 97.2 % (95.0-99.0); PO2(98.6) 118 mmHg (60-100); SAMPLE BLOOD; SAO2 99.8 % (95.0-100.0); THB 8.4 g/dL (11.5-17.4); pH(98.6) 7.48 (7.35-7.45)
[2019-03-31 04:52] LABS: MODALITY BI PAP; PCO2(98.6) 54 mmHg (35-45)
[2019-03-31 06:28] LABS: BASO# 0.03 X1000 (0.0-0.2); BASO% 0.3 % (0.0-0.8); EOS# 0.19 X1000 (0.0-0.7); EOS% 1.6 % (0.0-10.0); HEMOGLOBIN 8.4 g/dL (12.0-16.0); IMM GRAN# 0.02 X1000 (0.0-0.04); IMM GRAN% 0.2 % (0.0-0.5); LYMPH# 1.09 X1000 (1.2-3.4); LYMPH% 9.1 % (20.5-51.1); MCH 26.9 PG (27-31); MCV 92.9 FL (81-99); MONO# 1.67 X1000 (0.11-0.59); MPV 9.7 FL (7.4-10.4); NEUT# 8.95 X1000 (1.4-6.5); NEUT% 74.8 % (42.2-75.2); PLT 211 X1000 (130-400); RBC 3.12 XMIL (4.2-5.4); RDW 16.4 % (11.5-14.5); WBC 11.95 X1000 (4.8-10.8)
[2019-03-31 06:40] LABS: INR 1.28; PROTIME 16.2 Seconds (11.0-16.0)
[2019-03-31] MEDS: PROTONIX PO SCH (06:43)
[2019-03-31] MEDS: SYNTHROID PO SCH (06:43)
[2019-03-31 06:49] LABS: ALB/GLOB RATIO 0.9; ALBUMIN 3.2 g/dL (3.5-5.0); CALCIUM 9.5 mg/dL (8.8-10.2); CREATININE 1.2 mg/dL (0.5-0.9); POTASSIUM 3.9 mmol/L (3.5-5.1); TOTAL BILIRUBIN 0.39 mg/dL (0.20-1.00); TOTAL PROTEIN 6.8 g/dL (6.3-8.3)
--- NOTE | 2019-03-31 07:48 | Diag Imaging Result Doc PS360 ---
EXAM: CHEST-1 VIEW INDICATION: SOB TECHNIQUE: One view COMPARISON: 03/30/2019 FINDINGS: Right PICC line is in stable position. Inspiration is suboptimal like the previous study. Pulmonary edema and pulmonary venous congestion are essentially stable. However, there is slightly better aeration of the left lower lung zone. Cardiac silhouette is stable. IMPRESSION: Better aeration of left lower lung zone. Stable chest, otherwise. Electronically signed by Vinicius Silva 03/31/2019 7:46 AM
[2019-03-31] MEDS: LASIX IV SCH ×2 (09:12→20:21)
[2019-03-31] MEDS: MIRALAX PO SCH ×2 (09:12→20:21)
[2019-03-31] MEDS: COLACE PO SCH ×2 (09:12→20:21)
[2019-03-31] MEDS: MAXIPIME 2 GM in NS 100 ML IV SCH (09:12)
[2019-03-31] MEDS: COREG PO SCH ×2 (09:13→20:21)
[2019-03-31] MEDS: NORVASC PO SCH (09:13)
[2019-03-31] MEDS: ELIQUIS PO SCH (09:43)
[2019-03-31] MEDS: PLAVIX PO SCH (09:44)
[2019-03-31] MEDS: MORPHINE IV PRN ×2 (10:06→21:03)
--- NOTE | 2019-03-31 11:46 | PROGRESS NOTE ---
DATE: 03/31/2019 SUBJECTIVE: The patient is awake and alert. Apparently, as per nursing staff, she has used her BiPAP all night long. We have seen good improvement in CO2 levels. OBJECTIVE: Vital Signs: Temperature 98.7 degrees, heart rate 59, respiratory rate 18, blood pressure 127/52. O2 saturation 100% on BiPAP machine. FiO2 of 40%. General Examination: This is a chronically ill-appearing, morbidly obese, 73-year-old female lying in bed, in no acute distress. Cardiovascular: S1, S2 heard, distant, but no murmurs, gallops, or rubs noted. Regular rate and rhythm. Respiratory: Decreased breath sounds globally, mostly because of the body habitus but I do not hear any crackles or rhonchi today. Patient is not using any accessory muscles or having work of breathing. Abdomen: Soft, nontender to palpation. Bowel sounds present. No organomegaly. Extremities: Right vzbpa-yje-dkwn amputation. The left lower extremity there is 1-2+ pedal edema with signs of chronic venous insufficiency on exam. Neurological: Patient is alert and oriented x3. Moves 4 extremities. LABORATORY DATA: White cell count 11.95, hemoglobin 8.4, hematocrit 29.0, platelets 211,000. ABG shows pH 7.48, with pCO2 54, PO2 118. BMP is remarkable for creatinine 1.2. ALT 127, proBNP 3736. ASSESSMENT/PLAN: 1. Acute hypoxemic hypercarbic respiratory failure. That condition is improving. The patient has used BiPAP last night and we can see it in the ABG from today. At this point, I have encouraged the patient to use BiPAP at night all night long and the day as much as she can. Patient acknowledged understanding. She reports breathing much better. We will continue with the same management. Pulmonary is following this patient. We will follow recommendations. 2. Acute congestive heart failure. The patient is on Lasix 60 mg IV q.12 hours. Also amlodipine and Coreg has been started. Clinically, this patient is feeling better. We will continue to monitor. 3. Acute kidney injury. Creatinine is 1.2 today, slightly elevated. We will continue to monitor BMP. I think she should be at her baseline now. 4. Transaminitis definitely much better now. We will continue to monitor. 5. Iron deficiency anemia. Aware. 6. Plavix has been held since admission. At this point, I think we will continue to monitor CBC and medications can be restarted at the convenience of Cardiology. 7. Disposition. I think this patient is slowly getting better. We will continue to wait for a bed in [facility] to transfer her. At the time of discharge, she may need to go to a rehab facility. cc: Darell Granados MD
[2019-03-31] MEDS ORDERED: VANCOMYCIN 2,000 MG in NS 500 ML IV SCH (13:00)
--- NOTE | 2019-03-31 21:22 | PULMONOLOGY PROGRESS NOTE ---
DATE: 03/31/2019 SUBJECTIVE: The patient is awake and alert. She reports her breathing has marginally improved over the last 24 hours. OBJECTIVE: Intake 420 (?), output 1850. BP 113/73, heart rate 76, respiratory rate 26, oxygen saturation 93% on 3 L per nasal cannula. She did wear the BiPAP last evening.HEENT: Pupils are equal and reactive. Oropharynx appears clear. Neck: Supple. Chest: Reveals diminished breath sounds bilaterally. Cardiac: Distant heart sounds. Normal S1, normal S2. Abdomen: Obese and soft. Extremities: Reveal increased adiposity with 1+ edema. LABORATORIES: Chest x-ray reveals better aeration of the left base with stable pulmonary edema and vascular congestion. Sodium 143, potassium 3.9, chloride 98, bicarbonate 35, BUN 33, creatinine 1.2. ProBNP 3706. White blood count 11.95, hemoglobin 8.4, platelet count 211,000. Arterial blood gas pH 7.48, pCO2 of 54, PO2 of 118. IMPRESSION: A 73-year-old with 1. Morbid obesity and a body mass index greater than 50. 2. Acute cor pulmonale. 3. Acute hypoxemic and acute hypercapnic respiratory failure. 4. Fluid overload with pulmonary edema. RECOMMENDATIONS: 1. Encourage patient to use her BiPAP at bedtime. This will translate to better pulmonary pressures in the daytime. 2. Continue diuretics as tolerated. 3. Overall prognosis is guarded but she should be a candidate for transfer to the PVC unit today. cc: Rhys Caputo MD
[2019-04-01] MEDS: MORPHINE IV PRN ×6 (00:42→23:55)
[2019-04-01 03:29] LABS: ALLEN TEST YES; BE 14.7 mmoll (-3.0-3.0); BLOOD TYPE ARTERIAL; HCO3-(ACT) 36.4 mmoll (20.0-26.0); METHB 0.8 % (0.0-1.5); O2(CT) 10.9 mL/dL (15.0-23.0); PO2(98.6) 72 mmHg (60-100); SAMPLE BLOOD; SAO2 98.8 % (95.0-100.0); SRATE 14 BPM; THB 8.1 g/dL (11.5-17.4); pH(98.6) 7.47 (7.35-7.45)
[2019-04-01 03:30] LABS: MODALITY BI PAP
[2019-04-01 03:31] LABS: PCO2(98.6) 55 mmHg (35-45)
[2019-04-01] MEDS: SYNTHROID PO SCH ×2 (05:45→06:02)
[2019-04-01] MEDS: PROTONIX PO SCH ×2 (05:45→06:02)
[2019-04-01 06:32] LABS: BASO# 0.03 X1000 (0.0-0.2); BASO% 0.2 % (0.0-0.8); EOS% 1.6 % (0.0-10.0); HEMATOCRIT 28.3 % (37.0-47.0); HEMOGLOBIN 8.3 g/dL (12.0-16.0); IMM GRAN# 0.07 X1000 (0.0-0.04); IMM GRAN% 0.5 % (0.0-0.5); LYMPH# 1.18 X1000 (1.2-3.4); LYMPH% 9.2 % (20.5-51.1); MCH 27.3 PG (27-31); MCHC 29.3 g/dL (33-37); MCV 93.1 FL (81-99); MONO# 1.73 X1000 (0.11-0.59); MONO% 13.5 % (1.7-9.3); MPV 10.2 FL (7.4-10.4); NEUT# 9.57 X1000 (1.4-6.5); PLT 203 X1000 (130-400); RBC 3.04 XMIL (4.2-5.4); RDW 16.5 % (11.5-14.5); WBC 12.78 X1000 (4.8-10.8)
[2019-04-01 06:58] LABS: ALB/GLOB RATIO 0.7; ALBUMIN 2.6 g/dL (3.5-5.0); CREATININE 1.1 mg/dL (0.5-0.9); TOTAL BILIRUBIN 0.39 mg/dL (0.20-1.00); TOTAL PROTEIN 6.5 g/dL (6.3-8.3)
--- NOTE | 2019-04-01 07:33 | Diag Imaging Result Doc PS360 ---
CHEST-1 VIEW - 04/01/2019 INDICATION: SOB COMPARISON: 03/31/2019 FINDINGS: Stable cardiomegaly and pulmonary vascular congestion. There is worsening hazy central pulmonary edema. Stable opacification of the left lung base. Stable right PICC line in good position. IMPRESSION: Worsening pulmonary edema. Electronically signed by Marquis Parsons 04/01/2019 7:31 AM
[2019-04-01 07:37] LABS: INR 1.24; PROTIME 15.8 Seconds (11.0-16.0)
[2019-04-01] MEDS: MIRALAX PO SCH ×3 (08:54→20:15)
[2019-04-01] MEDS: NORVASC PO SCH (08:54)
[2019-04-01] MEDS: LASIX IV SCH ×2 (08:54→20:16)
[2019-04-01] MEDS: COREG PO SCH ×2 (08:54→20:17)
[2019-04-01] MEDS: MAXIPIME 2 GM in NS 100 ML IV SCH (08:54)
[2019-04-01] MEDS: COLACE PO SCH ×2 (09:09→20:16)
[2019-04-01] MEDS ORDERED: LOVENOX SUBQ SCH (10:45)
[2019-04-01] MEDS: ALDACTONE PO SCH ×2 (11:54→20:17)
[2019-04-01] MEDS: DULCOLAX PR SCH ×2 (14:06→20:16)
--- NOTE | 2019-04-01 14:58 | PROGRESS NOTE ---
DATE: 04/01/2019 INTERVAL HISTORY: No acute event overnight. She wore her BiPAP and currently she is saturating 100% on 4 L nasal cannula. We discussed about exam findings. She could not tell me the exact indication of apixaban and Plavix. However, she states that she takes 2 blood thinners. She denies any chest pain. Her shortness of breath is better. VITALS: Temperature 98.1 degrees, pulse 76, respiratory rate 18, blood pressure 140/57, saturating 98% on 4 L nasal cannula. PHYSICAL EXAMINATION: General: Morbidly obese, not in any acute distress. She has a right upper extremity resting tremor. HEENT: No pallor, cyanosis, clubbing, or icterus. Her examination is limited because of her large body habitus. Lungs: There are mild infrascapular crackles. Heart: S1, S2 normal. Irregularly irregular. No murmur, rub, or gallop. Abdomen: Obese, soft, nontender. She has a Smith catheter. Extremities: She has extreme edema affecting left lower extremity. She had right above-knee amputation. LABS: Suggestive of persistent leukocytosis, normocytic anemia, normal platelet count. Persistent hypercarbia which is compensated on BiPAP. She does have chronic kidney disease stage 3. Her transaminitis has resolved. No new microbiological data. IMAGING: No imaging data except the chest x-ray which had suggested worsening pulmonary edema, though clinically she looks better. ASSESSMENT AND PLAN: 1. Acute hypoxic hypercapnic respiratory failure on chronic hypoxic respiratory failure due to acute pulmonary edema due to diastolic congestive heart failure exacerbation as well as possibly due to a component of obesity hypoventilation syndrome. Continue current dose of IV diuresis as well as nighttime BiPAP and daytime oxygen. Add her home spironolactone. 2. Congestive heart failure with preserved ejection fraction exacerbation. Currently appears to be improving. Continue home carvedilol, isosorbide, add home ranolazine and spironolactone. 3. History of coronary artery disease, status post stent in around 2013 and paroxysmal atrial fibrillation on home Eliquis. Continue atorvastatin, clopidogrel, and add Eliquis. Follow up CBC closely. 4. Others. Continue amlodipine for essential hypertension; levothyroxine for hypothyroidism; bowel regimen to avoid constipation. DISPOSITION: I will continue to monitor the patient in telemetry unit. Plan of care discussed with her. Her questions have been answered. Plan is to have discharge next week. cc: Elijah Machuca MD [facility]ITALRosalina
[2019-04-01] MEDS ORDERED: LASIX IV ONE (16:07)
[2019-04-01] MEDS: RANEXA PO SCH (20:16)
[2019-04-01] MEDS: ELIQUIS PO SCH (20:16)
[2019-04-01] MEDS: LIPITOR PO SCH (20:16)
--- NOTE | 2019-04-01 21:25 | PULMONOLOGY PROGRESS NOTE ---
DATE: 04/01/2019 SUBJECTIVE: The patient is awake and alert. She reports she is constipated. OBJECTIVE: Vital signs: The patient has been afebrile for the last 24 hours. Blood pressure 144/57, heart rate 76, respiratory rate 18, oxygen saturation 98% on 4 L per nasal cannula. HEENT: Pupils are equal and reactive. Oropharynx appears clear. Neck: Supple. Chest: Reveals prolonged expiratory phase with distant breath sounds. Cardiac: S1-S2. Abdomen: Soft. Extremities: Reveal trace to 1+ peripheral edema. LABORATORIES: Arterial blood gas reveals a pH 7.47, pCO2 of 57, pO2 of 72 on BiPAP. White blood count 12.78, hemoglobin 8.3, platelet count 203,000. Sodium 138, potassium 4.5, chloride 95, bicarbonate 28, BUN 34, creatinine 1.1. Chest x-ray reveals cardiomegaly with slight increase in pulmonary edema. IMPRESSION: A 73-year-old with 1. Acute cor pulmonale. 2. Pulmonary edema with fluid overload. 3. Acute hypoxemic and acute hypercapnic respiratory failure. 4. Morbid obesity and a body mass index of greater than 50. PLAN: 1. Extra dose of Lasix today with worsening edema. 2. Continue BiPAP at bedtime and p.r.n. 3. Prognosis is guarded. Would continue to keep the patient in the PVC for now. cc: Rhys Caputo MD
[2019-04-02] MEDS: MORPHINE IV PRN ×6 (03:04→21:59)
[2019-04-02 03:52] LABS: ALLEN TEST YES; BE 17.5 mmoll (-3.0-3.0); BLOOD TYPE ARTERIAL; HCO3-(ACT) 38.6 mmoll (20.0-26.0); METHB 1.2 % (0.0-1.5); O2(CT) 11.2 mL/dL (15.0-23.0); O2HB 95.5 % (95.0-99.0); PO2(98.6) 105 mmHg (60-100); SAMPLE BLOOD; SAO2 99.1 % (95.0-100.0); THB 8.2 g/dL (11.5-17.4); pH(98.6) 7.46 (7.35-7.45)
[2019-04-02 03:53] LABS: MODALITY CANNULA; PCO2(98.6) 61 mmHg (35-45)
[2019-04-02] MEDS: SYNTHROID PO SCH ×2 (05:44→06:13)
[2019-04-02] MEDS: PROTONIX PO SCH ×2 (05:44→06:13)
[2019-04-02 06:30] LABS: BASO# 0.02 X1000 (0.0-0.2); BASO% 0.2 % (0.0-0.8); EOS# 0.12 X1000 (0.0-0.7); HEMATOCRIT 28.7 % (37.0-47.0); HEMOGLOBIN 8.4 g/dL (12.0-16.0); IMM GRAN# 0.04 X1000 (0.0-0.04); IMM GRAN% 0.3 % (0.0-0.5); LYMPH# 1.31 X1000 (1.2-3.4); LYMPH% 11.2 % (20.5-51.1); MCH 26.8 PG (27-31); MCHC 29.3 g/dL (33-37); MCV 91.7 FL (81-99); MONO# 1.37 X1000 (0.11-0.59); MONO% 11.8 % (1.7-9.3); NEUT# 8.79 X1000 (1.4-6.5); NEUT% 75.5 % (42.2-75.2); PLT 265 X1000 (130-400); RBC 3.13 XMIL (4.2-5.4); WBC 11.65 X1000 (4.8-10.8)
[2019-04-02 06:32] LABS: CALCIUM 9.5 mg/dL (8.8-10.2); MAGNESIUM 2.2 mg/dL (1.5-2.7); POTASSIUM 3.5 mmol/L (3.5-5.1)
--- NOTE | 2019-04-02 07:40 | Diag Imaging Result Doc PS360 ---
CHEST-1 VIEW - 04/02/2019 INDICATION: SOB COMPARISON: 04/01/2019 FINDINGS: Stable right PICC line. Stable severe cardiomegaly and pulmonary vascular congestion. Stable partial opacification of the left lung base. There is slight improvement in the hazy interstitial pulmonary edema. IMPRESSION: Slight improvement in the pulmonary edema. Electronically signed by Marquis Parsons 04/02/2019 7:38 AM
[2019-04-02] MEDS: MIRALAX PO SCH ×2 (08:49→20:32)
[2019-04-02] MEDS: LASIX IV SCH ×2 (08:49→20:32)
[2019-04-02] MEDS: NORVASC PO SCH (08:50)
[2019-04-02] MEDS: ELIQUIS PO SCH ×2 (08:50→20:31)
[2019-04-02] MEDS: DULCOLAX PR SCH ×2 (08:50→20:31)
[2019-04-02] MEDS: ALDACTONE PO SCH ×2 (08:50→20:31)
[2019-04-02] MEDS: RANEXA PO SCH ×2 (08:50→20:31)
[2019-04-02] MEDS: DULCOLAX PO SCH (08:50)
[2019-04-02] MEDS: COREG PO SCH ×2 (08:50→20:31)
[2019-04-02] MEDS: PLAVIX PO SCH (08:50)
[2019-04-02] MEDS: COLACE PO SCH ×2 (08:50→20:31)
[2019-04-02] MEDS: IMDUR PO SCH (08:50)
[2019-04-02] MEDS ORDERED: KLOR-CON PO ONE (09:30)
--- NOTE | 2019-04-02 11:59 | PROGRESS NOTE ---
DATE: 04/02/2019 INTERVAL HISTORY: The patient did not wear her BiPAP mask, it looks like, overnight. In the morning time, her ABG was essentially in acceptable range with hypercarbia which was compensated. SUBJECTIVE: She denies any chest pain. She is feeling better. She denies any shortness of breath. She states she has been able to eat well but has not had any bowel movement. VITALS: Otherwise unremarkable. Temperature 97.5 degrees, pulse 86, respiratory rate 18, blood pressure 130/54, saturating 98% on 5 L nasal cannula. PHYSICAL EXAMINATION: Morbidly obese. Not in any acute distress. She has a urine catheter and nasal cannula. No pallor, cyanosis, clubbing, or icterus. Lungs: Air entry bilaterally equal. No wheeze or rhonchi. Mild inspiratory crackles, infrascapular region. S1, S2 normal. No murmur, rub, or gallop. Not tachycardic. Irregularly irregular. Abdomen: Obese, soft, nontender. She has a right above-knee amputation, edema, and chronic stasis dermatitis, left lower extremity. Smith catheter. She is alert. She is oriented x3. LABS: Suggestive of mild leukocytosis, normocytic anemia, normal platelet count, hypercarbia which is compensated with normal pH, chronic kidney disease stage 3. IMAGING: Suggests improvement in pulmonary edema. ASSESSMENT AND PLAN: 1. Acute hypoxic, hypercapnic respiratory failure on chronic hypoxic respiratory failure due to acute pulmonary edema due to diastolic congestive heart failure exacerbation as well as acute cor pulmonale. Continue intravenous diuresis, nighttime BiPAP, and daytime oxygen. Continue home spironolactone. She should get outpatient sleep study evaluation to rule out sleep apnea. 2. Congestive heart failure with preserved ejection fraction exacerbation. Previous echocardiogram imaging was suboptimal though. Continue home carvedilol, isosorbide, and spironolactone. 3. History of coronary artery disease, status post stent around 2013, and paroxysmal atrial fibrillation. Continue home ranolazine, Eliquis, atorvastatin, clopidogrel. Also continue amlodipine for essential hypertension. 4. Others. Continue levothyroxine for hypothyroidism and bowel regimen for constipation treatment. 5. Disposition. I will continue to monitor patient in the PVC unit. Plan of care discussed with her. Her questions have been answered. I will try and get in touch with her family to update them. Eventually, she would need to be discharged to [facility]. cc: Elijah Machuca MD
--- NOTE | 2019-04-02 16:36 | PULMONOLOGY PROGRESS NOTE ---
DATE: 04/02/2019 SUBJECTIVE: The patient was sleeping upon arrival, after eating lunch. She is without new complaints. She has no increased work of breathing. OBJECTIVE: Vital Signs: The patient has been afebrile for the last 24 hours. Blood pressure 128/54, heart rate 78, respiratory rate 20, oxygen saturation 100%. HEENT: Pupils are equal and reactive. Oropharynx appears clear. Neck: Supple. Chest: Reveals prolonged expiratory phase with decreased breath sounds left base. Cardiac exam: S1, S2. Abdomen: Obese and soft. Extremities: Reveal 1+ peripheral edema. LABORATORIES: White blood count 11.65, hemoglobin 8.4, platelet count 265,000. Sodium 140, potassium 3.5, chloride 94, bicarbonate 34, BUN 32, creatinine 1.0. Arterial blood gas reveals a pH of 7.46, pCO2 of 61, PO2 of 105. Chest x-ray reveals slight decrease in pulmonary vascular congestion/edema with stable opacification at the left lung base. IMPRESSIONS: A 73-year-old with: 1. Morbid obesity and a body mass index greater than 55. 2. Acute cor pulmonale. 3. Acute hypoxemic and acute hypercapnic respiratory failure. 4. Pulmonary edema with marginal improvement. PLAN: 1. Continue diuretics. 2. Continue to cycle BiPAP. 3. Overall prognosis is guarded. It is not clear how much more she will improve. cc: Rhys Caputo MD
[2019-04-02] MEDS: LIPITOR PO SCH (20:31)
[2019-04-03] MEDS: MORPHINE IV PRN ×5 (00:53→23:47)
[2019-04-03] MEDS: SYNTHROID PO SCH ×2 (05:19→06:18)
[2019-04-03] MEDS: PROTONIX PO SCH ×2 (05:20→06:18)
[2019-04-03 07:39] LABS: ALLEN TEST YES; BE 14.4 mmoll (-3.0-3.0); BLOOD TYPE ARTERIAL; HCO3-(ACT) 36.1 mmoll (20.0-26.0); METHB 0.7 % (0.0-1.5); O2(CT) 10.8 mL/dL (15.0-23.0); O2HB 93.2 % (95.0-99.0); PO2(98.6) 68 mmHg (60-100); SAMPLE BLOOD; THB 8.2 g/dL (11.5-17.4); pH(98.6) 7.38 (7.35-7.45)
[2019-04-03 07:42] LABS: MODALITY BI PAP; PCO2(98.6) 70 mmHg (35-45)
--- NOTE | 2019-04-03 07:57 | PROGRESS NOTE ---
DATE: 04/03/2019 INTERVAL HISTORY: No acute events overnight. In the morning time when I saw her, she had taken her nasal cannula off, and she appeared drowsy, so I put the nasal cannula back. I discussed with the nursing team about getting saturations as well as stat ABG. However, the patient is arousable with verbal stimuli easily. She did appear very pale and cyanotic to begin with. However, with oxygen nasal cannula on, she started improving. She denies any chest pain or shortness of breath. However, she is very drowsy most of the part of my encounters. VITAL: She has been afebrile with temperature of 97.5 degrees, pulse has been 76, respiratory rate 19, blood pressure 110/55. She is saturating 95% on 5 L on midnight. PHYSICAL EXAMINATION: General: Morbidly obese, not in any acute distress, and probably she did not wear her BiPAP. Oral cavity is dry. Lungs: Air entry bilaterally equal. No wheeze or rhonchi. Mild inspiratory crackles in inframammary region. Cardiovascular: S1, S2 normal. No murmur or gallop. Irregularly irregular. Abdomen: Obese, soft, nontender. Extremities: She has a right-sided above-knee amputation. She has anasarca including extreme edema of left lower extremity. She has a Smith catheter. She is drowsy. She is able to shake hand using both hands and wiggle the left lower extremity toes. Examination is limited because of large body habitus. LABS: No labs today. No new imaging today so far. ASSESSMENT AND PLAN: 1. Acute hypoxic hypercapnic respiratory failure on chronic hypoxic respiratory failure due to acute pulmonary edema, diastolic congestive heart failure exacerbation, acute, with acute cor pulmonale. Continue intravenous diuresis, nighttime BiPAP. I had counseled the patient about using BiPAP yesterday. However, it looks like she did not wear it. Continue daytime oxygen. Follow up with STAT ABG. Also, continue home spironolactone and outpatient sleep study. Pulmonology on board. Appreciate recommendation for long-term management. 2. Congestive heart failure with preserved ejection fraction, acute exacerbation. The echocardiogram previously were suboptimal because of her large body habitus. I will continue her home carvedilol, isosorbide, and spironolactone. Cardiology on board. We would appreciate recommendation if she would need a nuclear medicine scan in the future. However, this could be done outpatient. 3. History of coronary artery disease, status post stent in 2013, paroxysmal atrial fibrillation. I will continue home ranolazine, Eliquis, atorvastatin, clopidogrel, as well as amlodipine for essential hypertension. 4. Others. Continue levothyroxine for hypothyroidism. Bowel regimen for constipation treatment. I will add lactulose. 5. Disposition. The patient's condition and prognosis are guarded. I will continue to monitor her in PVC. I called the patient's son and informed him about the patient's course and had answered all of his questions yesterday. cc: Elijah Machuca MD
[2019-04-03] MEDS: LACTULOSE PO SCH ×2 (08:32→20:40)
[2019-04-03] MEDS: DULCOLAX PR SCH ×2 (08:32→20:39)
[2019-04-03] MEDS: LASIX IV SCH ×2 (08:32→20:40)
[2019-04-03] MEDS: ELIQUIS PO SCH ×2 (08:33→20:39)
[2019-04-03] MEDS: COLACE PO SCH ×2 (08:33→20:39)
[2019-04-03] MEDS: COREG PO SCH ×2 (08:33→20:39)
[2019-04-03] MEDS: ALDACTONE PO SCH ×2 (08:33→20:39)
[2019-04-03] MEDS: NORVASC PO SCH (08:33)
[2019-04-03] MEDS: DULCOLAX PO SCH (08:33)
[2019-04-03] MEDS: PLAVIX PO SCH (08:33)
[2019-04-03] MEDS: RANEXA PO SCH ×2 (08:33→20:39)
[2019-04-03] MEDS: IMDUR PO SCH (08:33)
[2019-04-03] MEDS: MIRALAX PO SCH ×2 (08:33→20:40)
--- NOTE | 2019-04-03 09:48 | Diag Imaging Result Doc PS360 ---
CHEST-1 VIEW - 04/03/2019 INDICATION: SOB COMPARISON: 04/02/2019 FINDINGS: Stable right PICC line in good position. There is severe cardiomegaly. Stable pulmonary vascular congestion. There is worsening infiltrate in the right upper lobe. There is worsening nonspecific opacification of the left lung base. IMPRESSION: Worsening from prior. Electronically signed by Marquis Parsons 04/03/2019 9:46 AM
[2019-04-03] MEDS ORDERED: XOPENEX NEB INH PRN (11:14)
[2019-04-03] MEDS ORDERED: NS NEB INH SCH (11:15)
[2019-04-03] MEDS ORDERED: ATROVENT NEB INH PRN (11:23)
[2019-04-03] MEDS: MUCOMYST 20% INH SCH ×2 (11:47→23:07)
[2019-04-03] MEDS: ATROVENT NEB INH SCH ×2 (15:59→23:08)
[2019-04-03] MEDS: XOPENEX NEB INH SCH ×2 (15:59→23:07)
--- NOTE | 2019-04-03 19:20 | CARDIOLOGY PROGRESS NOTE ---
DATE: 04/03/2019 SUBJECTIVE: Ms. Bustillos reports she is having a little bit of trouble swallowing where she feels like something is getting stuck in her mid throat. OBJECTIVE: Vital signs: She is afebrile, heart rate 87, blood pressure 132/65. Her ins and outs seem to largely continue to be negative over the last several days. She was slightly positive on the 7th. General: She is in no acute distress. Cardiovascular: She sounds to be in a regular rate and rhythm. She has very distant heart sounds. Warm and well perfused extremities. Respiratory: Her chest sounds are very distant but otherwise relatively clear. Abdomen: Soft, nontender. PERTINENT DATA: Her sodium was not checked today. She had an ABG but no chemistry or CBC. ASSESSMENT: Ms. Bustillos is a 73-year-old female with morbid obesity along with chronic obstructive pulmonary disease, hypercapnic hypoxic respiratory failure, cor pulmonale. PLAN: We will continue with current regimen. Her blood pressure is much better controlled. We are continuing with slow diuresis. I will ask for a palliative care consult today as the patient seemed to be more down and talking about end of life issues. She is already a DNR Level 1. cc: Daniel Davis MD
[2019-04-03] MEDS: LIPITOR PO SCH (20:39)
[2019-04-04] MEDS: ATROVENT NEB INH SCH ×3 (03:53→15:39)
[2019-04-04] MEDS: XOPENEX NEB INH SCH ×3 (03:53→15:39)
[2019-04-04 04:25] LABS: ALLEN TEST YES; BE 13.7 mmoll (-3.0-3.0); BLOOD TYPE ARTERIAL; HCO3-(ACT) 35.6 mmoll (20.0-26.0); METHB 0.6 % (0.0-1.5); O2(CT) 11.7 mL/dL (15.0-23.0); O2HB 94.6 % (95.0-99.0); PO2(98.6) 80 mmHg (60-100); SAMPLE BLOOD; SAO2 97.2 % (95.0-100.0); THB 8.7 g/dL (11.5-17.4); pH(98.6) 7.39 (7.35-7.45)
[2019-04-04 04:26] LABS: MODALITY CANNULA
[2019-04-04 04:27] LABS: PCO2(98.6) 67 mmHg (35-45)
[2019-04-04] MEDS: MORPHINE IV PRN ×2 (05:04→12:13)
[2019-04-04] MEDS: SYNTHROID PO SCH ×2 (05:44→06:36)
[2019-04-04] MEDS: PROTONIX PO SCH ×2 (05:45→06:36)
[2019-04-04 05:53] LABS: BASO# 0.03 X1000 (0.0-0.2); BASO% 0.3 % (0.0-0.8); EOS% 2.1 % (0.0-10.0); HEMATOCRIT 26.8 % (37.0-47.0); HEMOGLOBIN 7.9 g/dL (12.0-16.0); IMM GRAN# 0.04 X1000 (0.0-0.04); IMM GRAN% 0.4 % (0.0-0.5); LYMPH# 1.23 X1000 (1.2-3.4); MCH 26.8 PG (27-31); MCHC 29.5 g/dL (33-37); MCV 90.8 FL (81-99); MONO# 0.97 X1000 (0.11-0.59); MONO% 10.3 % (1.7-9.3); NEUT# 6.99 X1000 (1.4-6.5); NEUT% 73.9 % (42.2-75.2); PLT 295 X1000 (130-400); RBC 2.95 XMIL (4.2-5.4); RDW 15.6 % (11.5-14.5); WBC 9.46 X1000 (4.8-10.8)
[2019-04-04 06:12] LABS: CREATININE 1.4 mg/dL (0.5-0.9); MAGNESIUM 2.3 mg/dL (1.5-2.7); POTASSIUM 4.1 mmol/L (3.5-5.1)
--- NOTE | 2019-04-04 07:34 | Diag Imaging Result Doc PS360 ---
EXAM: CHEST-1 VIEW INDICATION: SOB TECHNIQUE: One view COMPARISON: 04/03/2019 FINDINGS: The right PICC line is in stable position. Opacification at the left lung base is stable. Pulmonary venous congestion is unchanged. The right upper lobe infiltrate appears slightly less prominent. No new consolidation is identified. There is stable cardiomegaly. IMPRESSION: Marginal improvement of infiltrate in the right upper lobe. Stable chest, otherwise. Electronically signed by Vinicius Silva 04/04/2019 7:32 AM
[2019-04-04] MEDS: LACTULOSE PO SCH (08:37)
[2019-04-04] MEDS: PLAVIX PO SCH (08:38)
[2019-04-04] MEDS: DULCOLAX PR SCH (08:38)
[2019-04-04] MEDS: RANEXA PO SCH (08:38)
[2019-04-04] MEDS: COREG PO SCH (08:38)
[2019-04-04] MEDS: LASIX IV SCH (08:38)
[2019-04-04] MEDS: IMDUR PO SCH (08:38)
[2019-04-04] MEDS: COLACE PO SCH (08:38)
[2019-04-04] MEDS: DULCOLAX PO SCH (08:38)
[2019-04-04] MEDS: MIRALAX PO SCH (08:38)
[2019-04-04] MEDS: ELIQUIS PO SCH (08:38)
[2019-04-04] MEDS: NORVASC PO SCH (08:39)
[2019-04-04] MEDS: ALDACTONE PO SCH (08:39)
[2019-04-04] MEDS: MUCOMYST 20% INH SCH (09:27)
--- NOTE | 2019-04-04 11:08 | PROGRESS NOTE ---
DATE: 04/04/2019 INTERVAL HISTORY: No acute events overnight. She wore her BiPAP for a couple of hours. After that she started feeling uncomfortable and it was removed. VITAL SIGNS: Temperature 97.4 degrees, pulse 72, respiratory rate 18, blood pressure 128/62, saturating 96% on 5 L nasal cannula. The patient is much more awake and alert. She denies any complaints I discussed with her about her health condition. I discussed with her about weight reduction physical activity to get her pulmonary status better. Input and output suggest it is - 800 mL so far today and since admission she is -10 L. PHYSICAL EXAMINATION: Morbidly obese, not in any acute distress. Oral cavity is moist. Examination is limited because of large body habitus. She does have low breath sounds bilaterally. Inspiratory crackles in infrascapular region S1, S2 normal. Irregularly irregular. No murmur, rub, or gallop. Abdomen:Obese, soft, nontender. Massive edema affecting the left lower extremity. Right above-knee amputation. She has generalized anasarca. A Smith catheter, right-sided PICC line. She is alert and oriented x3. LABS: Suggestive of no leukocytosis, normocytic anemia, normal platelet count. Hypercarbia which is compensated on nasal cannula. Chronic kidney disease stage 3. Microbiology no positive data. IMAGING: Chest x-ray suggests persistent infiltrate with some improvement. ASSESSMENT AND PLAN: 1. Acute hypoxic hypercapnic respiratory failure on chronic hypoxic respiratory failure due to acute pulmonary edema, diastolic congestive heart failure exacerbation, acute cor pulmonale. I will continue intravenous diuresis, nighttime BiPAP per high-flow nasal cannula and daytime simple nasal cannula. She is status post intravenous vancomycin and cefepime of 7 to 8 days. Continue spironolactone, albuterol ipratropium nebulization and Mucomyst. The long-term plan would be to keep the patient on nasal cannula and have outpatient sleep study. 2. Congestive heart failure with preserved ejection fraction exacerbation. Echocardiogram, however, was suboptimal. Cardiology team recommends continued management. 3. History of coronary artery disease status post stent in 2013, paroxysmal atrial fibrillation and essential hypertension. Continue home ranolazine, atorvastatin, clopidogrel Eliquis and amlodipine. 4. Others continue levothyroxine for hypothyroidism and bowel regimen for constipation. She did have a documented bowel movement. DISPOSITION: I will continue to monitor patient inside the hospital. My goal is to help her get down to 3 L of oxygen daytime requirement and at that point I will consider discharging her to [facility] to have outpatient sleep study to see if she would need positive-pressure ventilation at nighttime. Plan of care discussed with the patient and I called patient's son and informed him about her condition. cc: Elijah Machuca MD
--- NOTE | 2019-04-04 13:48 | CARDIOLOGY PROGRESS NOTE ---
DATE: 04/04/2019 SUBJECTIVE: Ms. Bustillos has no shortness of breath complaints presently. She report she has not had a bowel movement for several days, feels somewhat constipated. PHYSICAL: She is afebrile. Heart rate is 77, blood pressure is 121/64. Her I's and O's on the whole appear to continue to be negative.General: No acute distress. Cardiovascular: She sounds to be in a regular rate and rhythm. She has no obvious murmurs. Extremely distant heart sounds. She has warm and well perfused extremities. Her chest exam clear, distant. No increased work of breathing. Her abdomen is soft, nontender. PERTINENT DATA: White count 9.4, hematocrit 26, platelet count 295,000. Her sodium is 139, potassium 4.1, her BUN is 38 with a creatinine of 1.4 which is a trend up from 32 and 1.0 on the . ASSESSMENT: Ms Bustillos is a 73-year-old female with cor pulmonale as well as obesity hypoventilation and chronic hypoxic hypercapnic respiratory failure. PLAN: Her BUN and creatinine seem to have taken a trend up over the last couple of days. I will discontinue the IV Lasix and we will place her on a oral regimen. Previously at home she was on torsemide 20 daily. We will start out with Lasix 40 mg p.o. b.i.d. starting in the morning. cc: Daniel Davis MD
[2019-04-04 15:45] VITALS: BP 133/72
--- NOTE | 2019-04-04 16:22 | DISCHARGE SUMMARY ---
ADMISSION DATE: 03/25/2019 DISCHARGE DATE: 04/04/2019 DISCHARGE DISPOSITION: Long-term care at [facility] with end of life care. DISCHARGE CONDITION: Patient is hemodynamically stable. She is on 4 L nasal cannula oxygen, saturating 92 to 93%. Not in any acute distress. DISCHARGE DIAGNOSES: 1. Acute hypoxic, hypercapnic respiratory failure on chronic hypoxic respiratory failure. 2. Acute pulmonary edema. 3. Acute diastolic congestive heart failure exacerbation. 4. Acute cor pulmonale. 5. Acute kidney injury. 6. Hyperkalemia. 7. Transaminitis. OTHER DIAGNOSES: 1. Chronic hypoxic respiratory failure. 2. Chronic kidney disease stage 3. 3. Chronic anemia. 4. Morbid obesity. 5. Chronic obstructive pulmonary disease. 6. Diastolic congestive heart failure. 7. Hypothyroidism. 8. Hyperlipidemia. 9. Atrial fibrillation. 10. Coronary artery disease status post stent in 2013. DISCHARGE MEDICATIONS: Atorvastatin 40 mg at nighttime, melatonin 1 tab at nighttime, pramipexole 1 mg at nighttime, bisacodyl 5 mg daily, apixaban 5 mg b.i.d., isosorbide mononitrate 60 mg daily, pantoprazole 40 mg daily, clopidogrel 75 mg daily, levothyroxine 200 mcg daily, bisacodyl 10 mg per rectal at nighttime as needed for constipation, spironolactone 25 mg b.i.d., carvedilol 12.5 mg b.i.d., albuterol ipratropium nebulization 3 mL inhaled q.6 hours as needed for shortness of breath, lactulose 30 mL daily, furosemide 40 mg b.i.d., MiraLAX 17 g b.i.d., Mucomyst 4 mL inhaled b.i.d., amlodipine 5 mg daily, ranolazine 1000 mg b.i.d., acetaminophen 650 mg every 6 hours as needed for pain. CONSULTATION DURING HOSPITAL ADMISSION: Computer Education Teacher, Dr. Daniel Davis. Level Designer, Dr. MORA AT THE TIME OF DISCHARGE: Temperature 97.4 degrees, pulse 77, respiratory rate 18, blood pressure 120/64, saturating 92% on 3 to 4 L nasal cannula. PHYSICAL EXAMINATION: General: Morbidly obese, not in any acute distress. HEENT: Oral cavity is moist. Her examination is limited because of large body habitus. Lungs: She does have inspiratory crackles bilateral inframammary region. Cardiovascular: S1, S2 normal. Irregularly irregular. No murmur or gallop. Abdomen: Obese, soft, nontender. Extremities: Massive edema affecting left lower extremity. Right has above-knee amputation. She has generalized anasarca. Smith catheter. Right-sided PICC line. Neurologic: She is alert and oriented x3. LABS: Suggestive of normocytic anemia, normal platelet count. She does appear to have pH of 7.39. Her hemoglobin is 7.9, platelet 295,000. PCO2 67. BUN 38, creatinine 1.4, GFR 37. MICROBIOLOGY: Urine culture is growing E. coli which was sensitive to Zosyn and cefepime. SIGNIFICANT IMAGING DURING HOSPITAL ADMISSION: Chest x-ray on admission had severely low lung volumes with evidence of pulmonary edema and possible effusion at the left lung base plus or minus pneumonia. She has had several chest x-ray. The latest today, on April 04 had suggested marginal improvement of infiltrate in right upper lobe and stable chest otherwise. Abdomen ultrasound on March 25 was unremarkable. Echocardiogram could not be performed appropriately because of her large body habitus. HOSPITAL COURSE SUMMARY: Ms. Bustillos is a 73-year-old lady with a past medical history of morbid obesity, who is a [facility] resident, who was found to be in respiratory distress by [facility] staff and was noticed to have an SpO2 of 60 to 70%, so she was placed on a nonrebreather mask and was sent to the emergency room for further evaluation. In the emergency room chest x-ray performed had suggested bilateral pulmonary edema, pleural effusion, infiltrate, so she was admitted for further management. She was started on intravenous antibiotics and intravenous diuresis. Considering very large body habitus, echocardiogram was not thought to be an appropriate modality. Initially the plan was to get a nuclear medicine image of her heart to evaluate cardiac function better. However, later on she had started improving on diuretics and antibiotics and it was deferred until outpatient. With antibiotics and diuretics the patient's respiratory status improved, although intermittently she did have episodes of hypercarbia requiring BiPAP. So it was decided to give her nighttime BiPAP, which on April 04, 2019 she improved and she is in an alert and oriented x3 condition. Considering her multiple comorbidities, morbid obesity, poor functional status, persistent hypoxia, the patient has decided to receive end of life care and she wanted to go back to the [place] [facility]. The patient's son who is the surrogate decision maker was kept informed of this decision and he was in agreement. TIME SPENT: More than 30 minutes were spent discharging this patient. All of her questions were satisfactorily answered. The patient should receive care targeting towards her comfort and palliation. cc: Elijah Machuca MD MTDD
[2019-04-05] MEDS ORDERED: LASIX PO SCH (09:00)
== END 2019-04-04 17:29 | DRG 291 ==
LOC: SUPCPDRO → ED 05:18 → SUATTDRO 10:46 → ICU 10:46 → 2N 03-31 18:16
PROVIDERS: ATTEND Internal Medicine